=== PATIENT | female | born 1950 | race Caucasian/White ===

== ENCOUNTER → 2016-12-15 | Outpatient (CLI) | payer BC ==
--- NOTE | 2016-12-15 09:52 | MM ---
Reason for exam: history of breast cancer, mastectomy. Last mammogram was performed 1 year and 1 month ago. History: Patient is postmenopausal and has history of breast cancer at age 52. Excisional biopsy of the right breast, July 14, 2005. Mastectomy of the right breast, July 2003. Taking tamoxifen for 2 years 6 months beginning at age 53. Physical Findings: Nurse did not find any significant physical abnormalities on exam. MG Diagnostic Mammo LT w CAD CC and MLO view(s) were taken of the left breast. Prior study comparison: November 15, 2015, left breast MG 3d diag mammo w/cad LT. February 11, 2012, mammogram, performed at [facility]. The breast tissue is heterogeneously dense. This may lower the sensitivity of mammography. Finding: There are typically benign round calcifications in the left breast. There is no discrete abnormality. These results were verbally communicated with the patient and result sheet given to the patient on 12/15/16. ASSESSMENT: Benign, BI-RAD 2 RECOMMENDATION: Follow-up diagnostic mammogram of the left breast in 1 year.
--- NOTE | 2016-12-15 10:46 | CT ---
EXAMINATION TYPE: CT ChestAbdPelvis w con DATE OF EXAM: 12/15/2016 9:29 AM COMPARISON: 06/17/2016 and 10/31/2015 HISTORY: 66-year-old female follow-up to breast CA TECHNIQUE: Contiguous axial scanning of the chest, abdomen, and pelvis performed with IV Contrast, pa tient injected with 100 mL of Omnipaque 300. Delayed images through the kidneys were obtained. Steven l/sagittal reconstructions performed. CT DLP: 774.9 mGycm Automated exposure control for dose reduction was used. FINDINGS: CHEST: The heart is normal size without pericardial effusion. Moderate atherosclerotic arch calcifications are present with conventional branching anatomy. No thoracic lymphadenopathy by CT size criteria. Postsurgical changes of right-sided mastectomy. Evaluation of the lungs shows mild diffuse bronchial wall thickening and mild centrilobular emphysema strandy areas of atelectasis in the lower lungs. No consolidation or pleural effusion. ABDOMEN: The previously seen low density along the anterior falciform ligament is less pronounced as compared to prior exam. No biliary ductal dilatation. Portal vein appears patent. Cholecystectomy clips. Stable low-density nodular thickening of the left greater than right adrenal glands measuring up to 2 .6 cm on the left is unchanged. Redemonstrated heterogeneously enhancing solid mass posterior mid right kidney. This measures 2.5 cm versus 2.4 cm on 06/17/2016. This is also remeasured at approximately 2.4 cm on 10/31/2015. Left kidney mildly atrophic. Spleen with an inferior hilar splenule and pancreas show no gross abnormal body. Moderate to severe atherosclerotic changes within the infrarenal abdominal aorta which is mildly ecta tic at 2.5 cm. No mesenteric or retroperitoneal lymphadenopathy. No dilated small bowel, free fluid, or free air. There is a right mid to lower abdominal hernia, possible spigelian hernia with small bowel loops exte nding between the layers of the anterior abdominal wall musculature. No inflammatory change or obstru ctive changes. Some surgical clips are present along the lower anterior abdominal wall. PELVIS: Bladder is nondistended. Circumferential bladder wall thickening may relate to incomplete distention. Uterus is present. Suggestion of underlying fibroids measuring up to 2.3 cm. Ovaries not well seen. No abnormal fluid collection in the pelvis or pelvic lymphadenopathy. There is mild circumferential w all thickening of the mid to distal sigmoid probably due to nondistention. Bones: Mild degenerative changes at the hips. Additional degenerative changes lower lumbar spine. Severe Yunior morl's node of L1 vertebral body is unchanged. Old healed left-sided rib fracture deformity. No osseo us destructive process. IMPRESSION: 1. STATUS POST RIGHT-SIDED MASTECTOMY. 2. THE PREVIOUSLY SEEN HYPODENSITY ALONG THE ANTERIOR FALCIFORM LIGAMENT WITHIN THE LIVER IS LESS PRO NOUNCED FROM PRIOR EXAM. UNDERLYING FOCAL FAT IS SUSPECTED. 3. STABLE LOW-DENSITY NODULAR THICKENING OF THE LEFT GREATER THAN RIGHT ADRENAL GLANDS, POSSIBLE ADRE NAL HYPERPLASIA. 4. THE SOLID RIGHT RENAL MASS MEASURES 2.5 CM VERSUS 2.4 CM ON 10/31/2015. RCC NOT EXCLUDED AND CONTINU ED FOLLOW-UP IS RECOMMENDED. 5. SOME SMALL BOWEL LOOPS HERNIATING BETWEEN MUSCULAR PLANES OF THE LOWER RIGHT ANTERIOR ABDOMINAL WA LL, POSSIBLE SPIGELIAN HERNIA. NO INFLAMMATORY OR OBSTRUCTIVE CHANGES. THIS IS STABLE FROM 10/31/2015. 6. MILD CIRCUMFERENTIAL BLADDER WALL THICKENING COULD RELATE TO UNDER DISTENTION OR CYSTITIS.
--- NOTE | 2016-12-15 14:08 | NM ---
EXAMINATION TYPE: NM bone scan whole body DATE OF EXAM: 12/15/2016 1:54 PM COMPARISON: 06/17/[address] same day HISTORY: 66-year-old female with a history of breast cancer in 2003 and recurrent in 2012. TECHNIQUE: Delayed whole-body scanning was performed following the injection of 27.5 mCi Tc 99m MDP. Anterior and posterior images are acquired 3 hours post injection. FINDINGS: Scattered degenerative tracer activity at both shoulders, sternoclavicular joints, left knee, base of the thumbs, ankles, and mid to hind feet. There is focal increased tracer activity involving the right sixth rib end. He previously seen activi ty at the left fifth and sixth anterior rib ends has resolved. Photopenic defect compatible with knee replacement on the right. IMPRESSION: 1. Posttraumatic activity involving the right sixth anterior rib end. Retrospective review of CT of t he same day shows a subacute healing fracture here. 2. Previous left fifth and sixth anterior rib end activity has resolved. 3. Additional degenerative tracer activity as above.
== END | disposition home or self-care (01) ==
LOC: RADMAMWWP 08:02
PROVIDERS: ATTEND Internal Medicine Hematology & Oncology
DX: Z03.89 Encounter for observation for other suspected diseases and conditions ruled out (principal); C50.919 Malignant neoplasm of unspecified site of unspecified female breast; Z90.11 Acquired absence of right breast and nipple; R93.3 Abnormal findings on diagnostic imaging of other parts of digestive tract; R91.8 Other nonspecific abnormal finding of lung field; N28.89 Other specified disorders of kidney and ureter; K45.8 Other specified abdominal hernia without obstruction or gangrene; R93.49 Abnormal radiologic findings on diagnostic imaging of other urinary organs; R93.7 Abnormal findings on diagnostic imaging of other parts of musculoskeletal system
CPT/HCPCS: 82565; 84520; 71260; 74177; 36415; 78306; G0206; A9503; Q9967

== ENCOUNTER → 2017-12-22 | Outpatient (CLI) | payer MEDICARE, BC ==
--- NOTE | 2017-12-22 14:25 | NM ---
EXAMINATION TYPE: NM bone scan whole body DATE OF EXAM: 12/22/2017 COMPARISON: Prior nuclear medicine bone scan December 15, 2016. Same day CT chest abdomen and pelvis adela dy. HISTORY: Breast cancer Delayed whole-body scanning was performed following the injection of 23.5 mCi Tc 99m MDP. Images acq uired 3 hours post injection. Whole body images are obtained in anterior posterior projection as well as spot images of the thorax and abdomen are obtained in several projections. FINDINGS: No suspicious radiotracer uptake is seen to suggest metastatic disease to the bone on current study. Lucency from prosthesis at level of right knee is redemonstrated. Increased uptake surrounding left k nee most prominent medial tibiofemoral compartment is consistent with product of osteoarthritis. Area s of abnormal uptake prior study involving anterior ribs on prior study do not show suspicious uptake on current study consistent with healed fractures. IMPRESSION: No scintigraphic evidence for metastatic disease to the bone.
--- NOTE | 2017-12-22 14:58 | CT ---
EXAMINATION TYPE: CT ChestAbdPelvis w con DATE OF EXAM: 12/22/2017 COMPARISON: 12/15/2016 HISTORY: 67-year-old female follow-up Breast CA. Last chemotherapy April 2014. TECHNIQUE: Contiguous axial scanning of the chest, abdomen, and pelvis performed with IV Contrast, pa tient injected with 80 mL of Isovue 300. Delayed images through the kidneys were obtained. Coronal/sa gittal reconstructions performed. CT DLP: 677.2 mGycm Automated exposure control for dose reduction was used. FINDINGS: Chest: Heart is normal size without pericardial effusion. Aorta normal caliber with mild atherosclerotic arch calcifications and conventional arch vessel branc jennifer anatomy. Nonenlarged mediastinal lymph nodes measure up to 5 mm in the AP window. No thoracic lymphadenopathy by CT size criteria. Postsurgical changes on the right breast. Small right-sided low axillary lymph node is unchanged. Evaluation the lung shows mild diffuse interstitial prominence likely chronic senescent change. There is underlying mild emphysema. Strandy atelectasis or scarring at the inferior lingula. ABDOMEN: Small amount of focal fat along the anterior falciform ligament is unchanged. No new focal liver lesi on seen. Portal venous system is patent. Cholecystectomy clips. Diffuse low density nodular thickening in the right adrenal glands is unchanged measuring up to 2.6 c m on the left suggesting possible adrenal hyperplasia. Stable solid heterogeneous enhancing 2.5 cm posterior right renal mass. Slightly atrophic left kidney also redemonstrated. Spleen and pancreas appear within normal limits. No retroperitoneal or mesenteric lymphadenopathy. Moderate to severe atherosclerotic plaque focally within the infrarenal abdominal aorta narrowing the patent lumen to 8 mm is unchanged. Ectasia of the infrarenal segment is stable to minimally increase d at 2.6 cm versus 2.5 cm, previously. No dilated small bowel, free fluid, or free air. Pelvis: There is a spiculated hernia redemonstrated containing opacified bowel loops. No obstructive changes. Suggestion of some prior mesh repair along the lower abdomen and anterior pelvis. Mild circumferenti al wall thickening of the sigmoid colon may relate to nondistention. Bladder is urine distended. Stab le 2.1 cm anterior right uterine fibroid. No abnormal fluid collection in the pelvis or pelvic lympha denopathy seen. Bones: Mild degenerative changes at the hips. Degenerative changes lower lumbar spine. No osseous destructiv e process. Mild superior endplate compression deformity of L1 is unchanged. IMPRESSION: 1. STATUS POST RIGHT MASTECTOMY. NO EVIDENCE FOR RECURRENT OR METASTATIC DISEASE. 2. STABLE 2.5 CM SOLID RIGHT RENAL MASS. CONTINUED STABILITY SUGGESTS A BENIGN NEOPLASM. 3. STABLE RIGHT-SIDED BOWEL LOOP CONTAINING SPIGELIAN HERNIA. NO EVIDENCE FOR OBSTRUCTION. 4. MILD CIRCUMFERENTIAL WALL THICKENING OF THE SIGMOID COLON COULD RELATE TO NONDISTENTION OR COLITIS . CLINICALLY CORRELATE.
== END | disposition home or self-care (01) ==
LOC: RADNMMAIN 10:17
PROVIDERS: ATTEND Internal Medicine Hematology & Oncology
DX: C50.919 Malignant neoplasm of unspecified site of unspecified female breast (principal); N28.89 Other specified disorders of kidney and ureter; K43.9 Ventral hernia without obstruction or gangrene; K63.89 Other specified diseases of intestine; Z90.11 Acquired absence of right breast and nipple
CPT/HCPCS: 82565; 84520; 71260; 74177; 36415; 78306; A9503; Q9967

== ENCOUNTER 2018-08-29 21:58 | Inpatient (IN) | payer MEDICARE ==
[2018-08-29] MEDS ORDERED: SODIUM CHLORIDE 0.9% 1,000 ML IV STA (22:33)
[2018-08-29] MEDS ORDERED: IPRATROPIUM-ALBUTEROL 3 ML NEB INHALATION STA (22:35)
--- NOTE | 2018-08-29 22:53 | ED ---
Syncope HPI <Rolanda Ramsey - Last Filed: 08/30/18 00:43> - General Source: patient Mode of arrival: wheelchair Limitations: no limitations <Jacek Alcaraz - Last Filed: 08/30/18 01:00> - General Chief Complaint: Syncope Stated Complaint: Weakness Time Seen by Provider: 08/29/18 22:19 - History of Present Illness Initial Comments: Patient is a 68-year-old female presenting for syncope. Patient states that since Thursday, she has been having "bronchitis" and was diagnosed with a steroid, antibiotic and inhaler. She admits to some shortness of breath but no chest pain and does not use any nausea home. She has a [id number] smoking history but is never been diagnosed with COPD. She states that since that time , she is been feeling very weak and lightheaded with standing. Just before arrival, she went to go sit down after walking her dog in the kitchen and as she was sitting down, she passed out. She does not know how long she was out for but states that she does not have any head pain, neck pain, back pain from the fall. She admits to nausea but no abdominal pain or vomiting/diarrhea. She thinks she may also have a urinary tract infection as she has increased urge to urinate but when she tries ago, nothing will come out. (Jacek Alcaraz ) - Related Data Allergies Allergy/AdvReac Type Severity Reaction Status Date / Time adhesive tape Allergy Rash/Hives Verified 08/29/18 22:17 Review of Systems ROS Other: All systems not noted in ROS Statement are negative. <Rolanda Ramsey - Last Filed: 08/30/18 00:43> ROS Other: All systems not noted in ROS Statement are negative. <Jacek Alcaraz - Last Filed: 08/30/18 01:00> ROS Statement: Those systems with pertinent positive or pertinent negative responses have been documented in the HPI. Constitutional: Negative for chills, and fever. Positive for fatigue HENT: Negative for congestion. Respiratory: Negative for chest tightness, positive for shortness of breath and wheezing. Positive for cough Cardiovascular: Negative for chest pain and palpitations. Positive for syncope Gastrointestinal: Negative for abdominal pain. Negative for abdominal distention , diarrhea, na and vomiting. Positive for nausea Genitourinary: Negative for dysuria. Positive for urinary urgency Musculoskeletal: Negative for back pain, neck pain and neck stiffness. Skin: Negative for color change. Neurological: Negative for dizziness, speech difficulty, weakness and positive for light-headedness. Psychiatric/Behavioral: Negative for agitation and confusion. Negative for anxiety (Jacek Alcaraz) Past Medical History Past Medical History: Cancer, Hyperlipidemia, Hypertension Additional Past Medical History / Comment(s): right breast History of Any Multi-Drug Resistant Organisms: None Reported Past Surgical History: Breast Surgery, Cholecystectomy, Joint Replacement Additional Past Surgical History / Comment(s): ectopic , knee, neck for tumor removal Past Psychological History: Anxiety Smoking Status: Current every day smoker Past Alcohol Use History: None Reported Past Drug Use History: None Reported <Jacek Alcaraz - Last Filed: 08/30/18 01:00> General Exam <Rolanda Ramsey - Last Filed: 08/30/18 00:43> Limitations: no limitations <Jacek Alcaraz - Last Filed: 08/30/18 01:00> - General Exam Comments Initial Comments: Constitutional: Pt is oriented to person, place, and time. Pt appears well- developed and well-nourished. No distress. HENT: Head: Normocephalic and atraumatic. Eyes: EOM are normal. Neck: Normal range of motion. Neck supple. Cardiovascular: Normal rate, regular rhythm, S1 normal, S2 normal and normal heart sounds. Exam reveals no gallop and no friction rub. No murmur heard. Pulmonary/Chest: Effort normal and breath sounds normal. No tachypnea and no bradypnea. No respiratory distress. No rales noted. Positive for diffuse wheezes Abdominal: Soft. Bowel sounds are normal. Pt exhibits no shifting dullness, no distension, no pulsatile liver, no fluid wave, no abdominal bruit and no ascites. There is no tenderness. There is no rigidity, no rebound, no guarding, no tenderness at McBurney's point and negative Smiley's sign. Musculoskeletal: Normal range of motion. Neurological: Pt is alert and oriented to person, place, and time. No cranial nerve deficit. Skin: Skin is warm and dry. No rash noted. Pt is not diaphoretic. No erythema. No pallor. Psychiatric: Pt has a normal mood and affect. Pt behavior is normal. Thought content normal. (Jacek Alcaraz) Vital Signs 08/29/18 08/29/18 08/30/18 22:10 23:28 00:23 Temperature 97.7 F Pulse Rate 71 64 56 L Respiratory 18 19 16 Rate Blood Pressure 80/42 120/75 O2 Sat by Pulse 98 99 Oximetry 08/30/18 08/30/18 00:29 00:31 Temperature Pulse Rate 60 62 Respiratory 20 Rate Blood Pressure 123/71 O2 Sat by Pulse 96 Oximetry EKG Findings - EKG Comments: EKG Findings:: EKG shows normal sinus rhythm of a rate of [address] interval 180, QRS 76, QTC 486. <Jacek Alcaraz - Last Filed: 08/30/18 01:00> Medical Decision Making - Lab Data Result diagrams: 08/29/18 23:09 08/29/18 23:09 <Rolanda Ramsey - Last Filed: 08/30/18 00:43> - Lab Data Result diagrams: 08/29/18 23:09 08/29/18 23:09 <Jacek Alcaraz - Last Filed: 08/30/18 01:00> - Medical Decision Making Patient care was discussed with Dr. Lorenzo, Nephrology library circulation technician. He recommended no aggressive sodium replacement, continue gentle hydration, repeat labs in 3-4 hours. Agrees with workup and treatment as ordered. (Rolanda Ramsey) Laboratory studies showed that there is no significant leukocytosis and chest x- ray showed no evidence of infiltrate. From a cardiac standpoint, EKG had no significant ST depressions or elevations and troponin was also negative. However, there was profound electrolyte derangements with sodium measuring 119. He is unclear if this is the cause of the patient's syncope but this may be related to the patient's chronic alcohol use. Nonetheless, alcohol was noted to be negative here. CT of the head and neck were also performed and negative for acute pathology and there is no evidence of transaminitis as well.Explained all labs and diagnostic test results and that we will admit patient to hospital. Pt is agreeable to plan and case has been discussed with Dr. Hernandez and Dr. Canela and they agree to accept the pt. (Jacek Alcaraz) - Lab Data Lab Results 08/29/18 08/29/18 08/29/18 Range/Units 23:09 23:09 23:09 WBC 8.7 (3.8-10.6) k/uL RBC 3.87 (3.80-5.40) m/uL Hgb 14.2 (11.4-16.0) gm/dL Hct 42.1 (34.0-46.0) % MCV 108.8 H (80.0-100.0) fL MCH 36.7 H (25.0-35.0) pg MCHC 33.7 (31.0-37.0) g/dL RDW 14.7 (11.5-15.5) % Plt Count 101 L (150-450) k/uL Neutrophils % (Manual) 94 % Lymphocytes % (Manual) 5 % Monocytes % (Manual) 1 % Neutrophils # (Manual) 8.18 H (1.3-7.7) k/uL Lymphocytes # (Manual) 0.44 L (1.0-4.8) k/uL Monocytes # (Manual) 0.09 (0-1.0) k/uL Nucleated RBCs 0 (0-0) /100 WBC Manual Slide Review Performed Macrocytosis Marked PT 10.5 (9.0-12.0) sec INR 1.0 (<1.2) APTT 25.9 (22.0-30.0) sec Sodium 119 L* (137-145) mmol/L Potassium 3.4 L (3.5-5.1) mmol/L Chloride 81 L (98-107) mmol/L Carbon Dioxide 26 (22-30) mmol/L Anion Gap 12 mmol/L BUN 26 H (7-17) mg/dL Creatinine 1.51 H (0.52-1.04) mg/dL Est GFR (CKD-EPI)AfAm 41 (>60 ml/min/1.73 sqM) Est GFR (CKD-EPI)NonAf 36 (>60 ml/min/1.73 sqM) Glucose 109 H (74-99) mg/dL Calcium 8.7 (8.4-10.2) mg/dL Magnesium 1.1 L (1.6-2.3) mg/dL Total Bilirubin 1.3 (0.2-1.3) mg/dL AST 20 (14-36) U/L ALT 20 (9-52) U/L Alkaline Phosphatase 73 (38-126) U/L Troponin I (0.000-0.034) ng/mL Total Protein 5.6 L (6.3-8.2) g/dL Albumin 3.1 L (3.5-5.0) g/dL Serum Alcohol <10 mg/dL 08/29/18 Range/Units 23:09 WBC (3.8-10.6) k/uL RBC (3.80-5.40) m/uL Hgb (11.4-16.0) gm/dL Hct (34.0-46.0) % MCV (80.0-100.0) fL MCH (25.0-35.0) pg MCHC (31.0-37.0) g/dL RDW (11.5-15.5) % Plt Count (150-450) k/uL Neutrophils % (Manual) % Lymphocytes % (Manual) % Monocytes % (Manual) % Neutrophils # (Manual) (1.3-7.7) k/uL Lymphocytes # (Manual) (1.0-4.8) k/uL Monocytes # (Manual) (0-1.0) k/uL Nucleated RBCs (0-0) /100 WBC Manual Slide Review Macrocytosis PT (9.0-12.0) sec INR (<1.2) APTT (22.0-30.0) sec Sodium (137-145) mmol/L Potassium (3.5-5.1) mmol/L Chloride (98-107) mmol/L Carbon Dioxide (22-30) mmol/L Anion Gap mmol/L BUN (7-17) mg/dL Creatinine (0.52-1.04) mg/dL Est GFR (CKD-EPI)AfAm (>60 ml/min/1.73 sqM) Est GFR (CKD-EPI)NonAf (>60 ml/min/1.73 sqM) Glucose (74-99) mg/dL Calcium (8.4-10.2) mg/dL Magnesium (1.6-2.3) mg/dL Total Bilirubin (0.2-1.3) mg/dL AST (14-36) U/L ALT (9-52) U/L Alkaline Phosphatase (38-126) U/L Troponin I <0.012 (0.000-0.034) ng/mL Total Protein (6.3-8.2) g/dL Albumin (3.5-5.0) g/dL Serum Alcohol mg/dL Disposition <Rolanda Ramsey - Last Filed: 08/30/18 00:43> Is patient prescribed a controlled substance at d/c from ED?: No Decision to Admit Reason: Admit from EC Decision Date: 08/30/18 Decision Time: 01:00 <Jacek Alcaraz - Last Filed: 08/30/18 01:00> Clinical Impression: Hyponatremia, Syncope Disposition: ADMITTED IP TO THIS HOSP Condition: Fair
[2018-08-29 23:36] LABS: Macrocytosis Marked; RBC 3.87 m/uL (3.80-5.40)
[2018-08-29 23:40] LABS: ALT 20 U/L (9-52); AST 20 U/L (14-36); Albumin 3.1 g/dL (3.5-5.0); Alcohol <10 mg/dL; Alkaline Phosphatase 73 U/L (38-126); Anion Gap 12 mmol/L; Blood Urea Nitrogen 26 mg/dL (7-17); Calcium 8.7 mg/dL (8.4-10.2); Carbon Dioxide 26 mmol/L (22-30); Chloride 81 mmol/L (98-107); Glucose 109 mg/dL (74-99); Magnesium 1.1 mg/dL (1.6-2.3); Partial Thromboplastin Time 25.9 sec (22.0-30.0); Potassium 3.4 mmol/L (3.5-5.1); Prothrombin Time 10.5 sec (9.0-12.0); Total Bilirubin 1.3 mg/dL (0.2-1.3); Total Protein 5.6 g/dL (6.3-8.2)
[2018-08-29 23:50] LABS: HCT 42.1 % (34.0-46.0); HGB 14.2 gm/dL (11.4-16.0); MCH 36.7 pg (25.0-35.0); MCHC 33.7 g/dL (31.0-37.0); MCV 108.8 fL (80.0-100.0); Platelet Count 101 k/uL (150-450); RDW 14.7 % (11.5-15.5); WBC 8.7 k/uL (3.8-10.6)
--- NOTE | 2018-08-30 | XR ---
EXAMINATION TYPE: XR chest 2V DATE OF EXAM: 08/29/2018 COMPARISON: NONE HISTORY: Syncope TECHNIQUE: Frontal and lateral views of the chest are obtained. FINDINGS: There is some linear density at the left lung base. Heart and mediastinum are normal. Ther e is osteopenia. Bony thorax is intact. There is 1 cm low-density area in the right midlung. IMPRESSION: Possible right pulmonary nodule. Minimal atelectasis left lung base. Normal heart.
[2018-08-30 00:09] LABS: Sodium 119 mmol/L (137-145)
[2018-08-30 00:12] LABS: Lymphocytes # (M) 0.44 k/uL (1.0-4.8); Monocytes # (M) 0.09 k/uL (0-1.0); Neutrophils # (M) 8.18 k/uL (1.3-7.7); Neutrophils % (M) 94 %; Nucleated Red Blood Cells 0 /100 WBC (0-0); Total Cells Counted 100
--- NOTE | 2018-08-30 00:14 | CT ---
EXAMINATION TYPE: CT brain laura newman con DATE OF EXAM: 08/29/2018 COMPARISON: CT cervical spine 05/04/2012 HISTORY: weakness, syncope CT DLP: 1205.30 mGycm Automated exposure control for dose reduction was used. TECHNIQUE: CT scan of the head and cervical spine are performed without contrast. FINDINGS: There is cerebral cortical atrophy. There is no mass effect nor midline shift. There is n o sign of intracranial hemorrhage. The calvarium is intact. Skull base appears intact. There is degenerative disc space narrowing at C5-6 and C6-7 with spurring of the endplates. There is laminectomy defect in the mid cervical spine. I see no compression fracture. There is no cervical par aspinal mass. There is some facet arthropathy in the mid cervical spine. IMPRESSION: Cerebral atrophy. No acute intracranial abnormality. Spondylotic changes. Previous surgery. There is clearing of the large posterior cervical fluid collec tion compared to old CT scan. No fracture.
[2018-08-30] MEDS ORDERED: NALOXONE 0.4 MG/ML 1 ML VIAL IV PRN (00:32)
[2018-08-30] MEDS ORDERED: IPRATROPIUM-ALBUTEROL 3 ML NEB INHALATION PRN (00:32)
[2018-08-30] MEDS ORDERED: ACETAMINOPHEN TAB 325 MG TAB PO PRN (00:32)
[2018-08-30] MEDS: SODIUM CHLORIDE 0.9% 1,000 ML IV SCH ×3 (01:09→21:37)
[2018-08-30 02:17] LABS: Appearance,Urine Clear (Clear); Bilirubin,Urine Negative (Negative); Blood,Urine Negative (Negative); Color,Urine Yellow; Glucose,Urine (UA) Negative (Negative); Ketones,Urine Negative (Negative); Leukocyte Esterase,Urine Negative (Negative); Nitrite,Urine Negative (Negative); PH, Urine 6.5 (5.0-8.0); Protein,Urine Negative (Negative); Specific Gravity,Urine 1.011 (1.001-1.035); Urobilinogen,Urine <2.0 mg/dL (<2.0)
[2018-08-30 03:09] LABS: Creatinine,Urine Random 87.5 mg/dL
[2018-08-30 03:11] LABS: Glucose,Whole Blood 96 mg/dL (75-99)
[2018-08-30 04:49] LABS: Basophils % (A) 0 %; Eosinophils % (A) 0 %; HCT 39.4 % (34.0-46.0); HGB 13.1 gm/dL (11.4-16.0); Lymphocytes # (A) 0.6 k/uL (1.0-4.8); Lymphocytes % (A) 7 %; MCH 37.2 pg (25.0-35.0); MCHC 33.4 g/dL (31.0-37.0); MCV 111.6 fL (80.0-100.0); Macrocytosis Marked; Mean Platelet Volume 8.6; Monocytes # (A) 0.3 k/uL (0-1.0); Monocytes % (A) 4 %; Neutrophils # (A) 7.9 k/uL (1.3-7.7); Neutrophils % (A) 87 %; RBC 3.53 m/uL (3.80-5.40); RDW 14.8 % (11.5-15.5); WBC 9.1 k/uL (3.8-10.6)
[2018-08-30 05:14] LABS: Platelet Count 86 k/uL (150-450)
[2018-08-30 06:11] LABS: Albumin 2.8 g/dL (3.5-5.0); Magnesium 1.1 mg/dL (1.6-2.3); Phosphorus 3.6 mg/dL (2.5-4.5); Potassium 3.2 mmol/L (3.5-5.1); Total Bilirubin 1.2 mg/dL (0.2-1.3); Total Protein 5.2 g/dL (6.3-8.2)
[2018-08-30] MEDS ORDERED: Potassium Replacement Protocol 1 EACH MISC MISCELLANE PRN (06:12)
[2018-08-30] MEDS ORDERED: Magnesium Replacement Protocol 1 EACH MISC MISCELLANE PRN (06:12)
[2018-08-30 06:21] VITALS: BMI 25.4
[2018-08-30] MEDS: POTASSIUM CHLORIDE ER 20 MEQ TAB.ER PO SCH ×2 (06:49→08:45)
[2018-08-30] MEDS: MAGNESIUM SULFATE-D5W PMX 1 GM in DEXTROSE/WATER 1 100ML.BAG IVPB SCH ×3 (06:49→09:53)
--- NOTE | 2018-08-30 08:53 | XR ---
EXAMINATION TYPE: XR chest 1V portable DATE OF EXAM: 08/30/2018 COMPARISON: 08/29/2018 HISTORY: Syncope TECHNIQUE: Single frontal view of the chest is obtained. FINDINGS: Trace left basilar platelike atelectasis is identified. Mild pulmonary hyperinflation sugg ests underlying COPD. The previously seen right midlung opacity appears to have resolved in the inter im and may have related to atelectasis. Cardia mediastinal silhouette is mildly enlarged. Right breas t surgical clips are noted. IMPRESSION: Left basilar subsegmental atelectasis, otherwise no acute cardiopulmonary process.
--- NOTE | 2018-08-30 11:34 | PN ---
PROGRESS NOTE PULMONARY/CRITICAL CARE CONSULTATION: DATE OF SERVICE: August 30, 2018 HISTORY OF PRESENT ILLNESS: This is a 68-year-old female who presented to the emergency room with complaints of weakness and loss of consciousness. She apparently was going to let her dog out of the house and she apparently passed out. She was apparently on the floor when she woke up and she is not sure exactly how long she was out. Anyway, she was brought in here to be evaluated for that. Here, she was found to be orthostatic. Her sodium was low. She states that she had not been feeling well. About a week before coming into the hospital, she saw her primary doctor, Dr. Sandeep Rivers in [place] for an episode of acute bronchitis. She was given some prednisone and some antibiotics. Anyway, she has not been feeling well since that time. Getting progressively weaker. This likely led her to have the episode that I described above. Anyway, she is feeling much better now. She does have a history of hyperlipidemia and hypertension. Her other significant history is that of right breast cancer. She had a previous mastectomy, and the cancer returned at which time she underwent chemo and radiation. She had radiation x2. Again, feeling much better now. She is on O2 at 2 L. She is getting an IV of saline at 100 mL an hour. ALLERGIES: INCLUDE ADHESIVE TAPE. PAST MEDICAL HISTORY: Includes breast cancer of the right breast, hypertension, hyperlipidemia. SURGICAL HISTORY: Includes among other things a right mastectomy. SOCIAL HISTORY: Positive for ongoing tobacco use. No alcohol use or illicit drug use. FAMILY HISTORY: Noncontributory. Additional surgical history includes cholecystectomy, joint replacement and a tumor removal. REVIEW OF SYSTEMS: CONSTITUTIONAL: Weakness. NEUROLOGIC: Syncope. HEENT negative. CARDIOVASCULAR negative. PULMONARY: Cough, chest congestion, shortness of breath, phlegm production. GI/ negative. RHEUMATOLOGIC: Negative. HEMATOLOGIC negative. ENDOCRINOLOGIC/DERMATOLOGIC: Negative. PHYSICAL EXAMINATION: VITAL SIGNS: Current vital signs are reviewed. Her temperature is 97.8. Heart rate 60. Respiratory rate is 12, blood pressure 119/90 with mean 99 and the room air saturation 94% and at 2 L saturation 97%. Appears in no acute distress. There is no respiratory distress. There is no audible wheezing. No use of accessory muscles or nasal flaring. HEENT examination is grossly unremarkable. Mucous membranes are moist. NECK: Supple. Full range of motion. No adenopathy or thyromegaly. Neck veins are flat. Cardiovascular examination reveals regular rhythm rate. S1, S2 normal. No S3, S4, or murmur. LUNGS: A few scattered rhonchi. There is some expiratory wheezes. Breath sounds are diminished. There is prolongation. ABDOMEN: Soft. Bowel sounds are heard. Extremities are intact. No cyanosis, clubbing, or edema. Skin without rash. Neurologic examination is brief but nonfocal. LABS: Reviewed. White count 9.1, hemoglobin 13.1, hematocrit 39.4, and platelet count is 86,000. Sodium is up from 119 to 122, potassium 3.2, chloride 88, CO2 24, anion gap is 10, BUN and creatinine were 24 and 1.26. The rest of the labs including the urine is negative. Alcohol level less than 10. X-RAY: Chest x-ray on admission showed evidence of possible right pulmonary nodule. There was some minimal atelectasis at the left lung base. A followup chest x-ray today reveals some basilar atelectasis on the left. Microbiologic studies are negative. Medications are reviewed. She is only on Tylenol, DuoNeb, magnesium replacement, Narcan, potassium protocol and an IV as mentioned. ASSESSMENT: 1. Weakness and syncope, likely related to underlying dehydration. 2. Hyponatremia, likely hypovolemic hyponatremia. 3. History of hypertension. 4. History of hyperlipidemia. 5. History of right breast cancer, status post right mastectomy and subsequent chemo radiation. 6. Thrombocytopenia. 7. Hypokalemia. PLAN: Continue with fluid resuscitation. The patient could be transferred out to the general medical floor without telemetry. I will add some Symbicort to her regimen. Additional recommendations and suggestions are forthcoming. We will likely add the prednisone as well to her regimen. We will also add an oral antibiotic for her bronchitis. Continue to watch the sodium and continue to watch other electrolytes to make sure everything is repleted. We will continue to follow. Prognosis is guarded. Post discharge from the hospital, she should see one of us in the office for further evaluation and treatment of her underlying COPD. MMODL / IJN: [id number] /
--- NOTE | 2018-08-30 11:55 | P.HPIM ---
History of Present Illness 68-year-old present female came in with complaints of syncope was recently treated for bronchitis. Patient is found to be severely hypotensive. Patient was not started on any of her hypertensives recently. Patient has been on clonidine and atenolol hydrochlorothiazide for a while. Patient can use to smoke. Does have 40 pack history of smoking does have history of COPD is complaining of cough with the lowest sputum production which is much better now. Patient is also found to be severely hyponatremic with serum sodium of 119 because of which patient was admitted to ICU was given a bolus of IV fluids after which her Serum sodium went up to 122 nephrology was consulted the already evaluated the patient patient is being continued on 100 mL of normal saline urine random sodium, TSH, serum cortisol levels are being obtained. Patient to hyponatremia is probably hypovolemic hyponatremia along with the hydrochlorothiazide contributing to her hyponatremia. Patient's heart rate is within normal limits because of which I'll hold off all her anti-hypertensives including atenolol and clonidine patient may need to be restarted back as soon as possible on atenolol to avoid reflex tachycardia. Patient also has acute renal failure with serum creatinine going up to 1.5 with my other multiple other left leg abnormal disease including hypomagnesemia and left lites are being corrected. Patient was started on Bactrim for bronchitis which will be switched to doxycycline because of hyponatremia and acute renal failure. Patient was comparing of generalized weakness and tiredness Review of Systems REVIEW OF SYSTEMS: CONSTITUTIONAL: No fever, HEENT: No recent visual problems or hearing problems. Denied any sore throat. CARDIOVASCULAR: No chest pain, orthopnea, PND, no palpitations, no syncope. PULMONARY: No shortness of breath, no hemoptysis. GASTROINTESTINAL: No diarrhea, no nausea, no vomiting, no abdominal pain. NEUROLOGICAL: No headaches, no weakness, no numbness. HEMATOLOGICAL: Denies any bleeding or petechiae. GENITOURINARY: Denies any burning micturition, frequency, or urgency. MUSCULOSKELETAL/RHEUMATOLOGICAL: Denies any joint pain, swelling, or any muscle pain. ENDOCRINE: Denies any polyuria or polydipsia. The rest of the 14-point review of systems is negative. Past Medical History Past Medical History: Cancer, Hyperlipidemia, Hypertension Additional Past Medical History / Comment(s): right breast History of Any Multi-Drug Resistant Organisms: None Reported Past Surgical History: Breast Surgery, Cholecystectomy, Joint Replacement Additional Past Surgical History / Comment(s): ectopic , knee, neck for tumor removal Past Psychological History: Anxiety Smoking Status: Current every day smoker Past Alcohol Use History: None Reported Past Drug Use History: None Reported Medications and Allergies Home Medications Medication Instructions Recorded Confirmed Type Albuterol Inhaler [Ventolin Hfa 1 - 2 puff INHALATION RT-Q6H PRN 08/30/18 History Inhaler] Aspirin EC [Ecotrin Low Dose] 81 mg PO DAILY 08/30/18 08/30/18 History Atenolol 100 mg PO DAILY 08/30/18 08/30/18 History Cholecalciferol [Vitamin D3] 1,000 unit PO DAILY 08/30/18 08/30/18 History Citalopram Hydrobromide [CeleXA] 20 mg PO DAILY 08/30/18 08/30/18 History Hydrochlorothiazide [Hydrodiuril] 25 mg PO DAILY 08/30/18 08/30/18 History Letrozole [Femara] 2.5 mg PO DAILY 08/30/18 08/30/18 History Loratadine [Claritin] 10 mg PO DAILY 08/30/18 08/30/18 History Naproxen 500 mg PO DAILY 08/30/18 08/30/18 History cloNIDine HCL [Catapres] 0.2 mg PO BID 08/30/18 08/30/18 History predniSONE See Taper PO DAILY 08/30/18 08/30/18 History Allergies Allergy/AdvReac Type Severity Reaction Status Date / Time adhesive tape Allergy Rash/Hives Verified 08/30/18 07:54 Physical Exam Vitals: Vital Signs Temp Pulse Pulse Pulse Resp BP BP 08/30/18 09:00 67 19 129/61 08/30/18 08:00 97 F L 70 82 66 17 128/99 08/30/18 07:00 60 12 119/90 08/30/18 06:00 67 42 H 99/84 08/30/18 05:00 63 19 160/88 08/30/18 04:00 97.8 F 71 82 66 16 152/82 08/30/18 03:09 26 H 08/30/18 02:00 97.0 F L 65 17 79/58 08/30/18 01:50 82 66 19 123/75 08/30/18 01:30 64 20 120/80 08/30/18 01:00 68 19 134/88 08/30/18 00:31 62 20 123/71 08/30/18 00:30 63 17 123/71 08/30/18 00:29 60 08/30/18 00:23 56 L 16 08/30/18 00:00 68 18 08/29/18 23:30 61 17 120/75 08/29/18 23:28 64 19 120/75 08/29/18 23:00 62 20 95/62 08/29/18 22:30 64 20 98/71 08/29/18 22:22 08/29/18 22:10 97.7 F 71 18 80/42 BP BP Pulse Ox 08/30/18 09:00 97 08/30/18 08:00 98 08/30/18 07:00 95 08/30/18 06:00 95 08/30/18 05:00 94 L 08/30/18 04:00 08/30/18 03:09 08/30/18 02:00 97 08/30/18 01:50 135/66 69/20 08/30/18 01:30 98 08/30/18 01:00 97 08/30/18 00:31 96 08/30/18 00:30 97 08/30/18 00:29 08/30/18 00:23 08/30/18 00:00 97 08/29/18 23:30 99 08/29/18 23:28 99 08/29/18 23:00 99 08/29/18 22:30 100 08/29/18 22:22 99 08/29/18 22:10 98 Intake and Output 08/29/18 08/30/18 08/30/18 22:59 06:59 14:59 Intake Total 600 100 Output Total 810 Balance -210 100 Intake: IV 600 100 Sodium Chloride 0.9% 1, 600 100 000 ml @ 100 mls/hr IV . Q10H [facility] Rx#:[id number] Output: Urine 810 Other: # Voids 2 Weight 58.967 kg 58.967 kg 58.967 kg PHYSICAL EXAMINATION: GENERAL: The patient is alert and oriented x3, not in any acute distress. Well developed, well nourished. HEENT: Pupils are round and equally reacting to light. EOMI. No scleral icterus. No conjunctival pallor. Normocephalic, atraumatic. No pharyngeal erythema. No thyromegaly. CARDIOVASCULAR: S1 and S2 present. No murmurs, rubs, or gallops. PULMONARY: Minimal expiratory wheezing and rhonchus breath sounds. ABDOMEN: Soft, nontender, nondistended, normoactive bowel sounds. No palpable organomegaly. MUSCULOSKELETAL: No joint swelling or deformity. EXTREMITIES: No cyanosis, clubbing, or pedal edema. NEUROLOGICAL: Gross neurological examination did not reveal any focal deficits. SKIN: No rashes. Results CBC & Chem 7: 08/30/18 04:13 08/30/18 05:38 Labs: Abnormal Lab Results - Last 24 Hours (Table) 08/29/18 08/29/18 08/29/18 Range/Units 23:09 23:09 23:09 RBC (3.80-5.40) m/uL MCV 108.8 H (80.0-100.0) fL MCH 36.7 H (25.0-35.0) pg Plt Count 101 L (150-450) k/uL Neutrophils # (1.3-7.7) k/uL Neutrophils # (Manual) 8.18 H (1.3-7.7) k/uL Lymphocytes # (1.0-4.8) k/uL Lymphocytes # (Manual) 0.44 L (1.0-4.8) k/uL Sodium 119 L* (137-145) mmol/L Potassium 3.4 L (3.5-5.1) mmol/L Chloride 81 L (98-107) mmol/L BUN 26 H (7-17) mg/dL Creatinine 1.51 H (0.52-1.04) mg/dL Glucose 109 H (74-99) mg/dL Osmolality 248 L* (280-301) mosm/kg Calcium (8.4-10.2) mg/dL Magnesium 1.1 L (1.6-2.3) mg/dL Total Protein 5.6 L (6.3-8.2) g/dL Albumin 3.1 L (3.5-5.0) g/dL 08/30/18 08/30/18 Range/Units 04:13 05:38 RBC 3.53 L (3.80-5.40) m/uL MCV 111.6 H (80.0-100.0) fL MCH 37.2 H (25.0-35.0) pg Plt Count 86 L (150-450) k/uL Neutrophils # 7.9 H (1.3-7.7) k/uL Neutrophils # (Manual) (1.3-7.7) k/uL Lymphocytes # 0.6 L (1.0-4.8) k/uL Lymphocytes # (Manual) (1.0-4.8) k/uL Sodium 122 L (137-145) mmol/L Potassium 3.2 L (3.5-5.1) mmol/L Chloride 88 L (98-107) mmol/L BUN 24 H (7-17) mg/dL Creatinine 1.26 H (0.52-1.04) mg/dL Glucose (74-99) mg/dL Osmolality (280-301) mosm/kg Calcium 8.0 L (8.4-10.2) mg/dL Magnesium 1.1 L (1.6-2.3) mg/dL Total Protein 5.2 L (6.3-8.2) g/dL Albumin 2.8 L (3.5-5.0) g/dL Assessment and Plan Plan: -Syncopal episode: Secondary to hypotension and hypovolemia patient will continue on IV fluids hold off on antidepressant medications at this time. -Hyponatremia: Hypovolemic hyponatremia along with HCl contributing to hyponatremia can he with IV fluids hold off on offending medications as mentioned above. -Bronchitis will discontinue Bactrim because of hyponatremia and acute renal failure patient will be started on doxycycline 1 patient may have mild acute exacerbation patient was started on systemic steroids continue with inhalational treatments nicotine cessation counseling was provided -Hypomagnesemia magnesium will be supplemented -Acute renal failure prerenal azotemia from hypovolemia and hypotension can you with IV fluids as mentioned above -Hypertension: Patient is currently hypotensive hold off on her antidepressant medications -Hyperlipidemia continue with her statin. -History of right breast cancer status post right mastectomy and chemoradiation subsequently -Hypokalemia secondary to hypomagnesemia both of which will be supplemented
[2018-08-30 12:12] LABS: Hemoglobin A1C 5.3 % (4.0-6.0)
--- NOTE | 2018-08-30 15:12 | CT ---
EXAMINATION TYPE: CT brain wo con DATE OF EXAM: 08/30/2018 COMPARISON: 08/29/2018 HISTORY: Fall today with subsequent head pain. CT DLP: 1040.4 mGycm Automated exposure control for dose reduction was used. TECHNIQUE: CT scan of the head is performed without contrast. COMPARISON: None FINDINGS: There is no acute intracranial hemorrhage or midline shift identified. There is diffuse v entricular and sulcal prominence consistent with diffuse age-related cerebral atrophy. There is low- attenuation in the periventricular white matter consistent with chronic small vessel ischemic change. The globes are intact. There is moderate mucosal thickening of the maxillary sinuses, sphenoid sinu s, and ethmoid sinuses. There is mild mucosal thickening of the frontal sinuses. Mastoid air cells ar e well aerated. Atherosclerosis is noted of the intracranial vasculature. No suspicious extra-axial f luid collection is seen. IMPRESSION: 1. No acute intracranial hemorrhage or midline shift. 2. Overall moderate pansinusitis. 3. There is diffuse age-related cerebral atrophy and chronic small vessel ischemic change.
[2018-08-30] MEDS: FAMOTIDINE 20 MG TAB PO SCH (15:56)
--- NOTE | 2018-08-30 18:58 | CONS ---
CONSULTATION REASON FOR CONSULT: Hyponatremia. HISTORY OF PRESENT ILLNESS: The patient is a 68-year-old female who was admitted to the hospital with complaints of weakness and not feeling well. The patient was found to be significantly hypotensive when she came in to the emergency room. Blood pressure was 80/42. The patient was has been given a liter of normal saline bolus. A serum sodium was low at 119. It has now come up to 122. The patient denies any prior history of hyponatremia. She did not have any diarrhea. She did have some nausea prior to admission. The patient also stated she had not been eating a lot, but had been drinking a large amount of water. There has not been any change in her medications recently. The patient is maintained on hydrochlorothiazide at home prior to admission. PAST MEDICAL HISTORY: Hypertension, osteoarthritis, hyperlipidemia, history of breast cancer status post surgery, cholecystectomy. PAST SURGICAL HISTORY: Cholecystectomy, knee arthroplasty, surgery for ectopic . SOCIAL HISTORY: Positive for smoking. No history of drug abuse or alcohol abuse. MEDICATIONS: Medications at home prior to admission included atenolol, vitamin D3, hydrochlorothiazide, Claritin, Naprosyn, clonidine, prednisone, . ALLERGIES: INCLUDE TAPE. REVIEW OF SYSTEMS: As per HPI. Other systems negative. PHYSICAL EXAMINATION: Patient is comfortable, awake, alert, oriented x3. She is not in any acute distress. Blood pressure this morning was 119/90, heart rate 82 per minute. She is afebrile. Examination of the heart S1, S2. Examination lungs bilateral breath sounds are heard. Abdomen is soft, nontender. Examination lower extremities shows no evidence of edema. [employer] exam is grossly intact. LAB: Revealed sodium 122, potassium 3.2, chloride 88, BUN 24, serum creatinine 1.26. UA is completely benign. Calcium was 8.7, hemoglobin 13.1 g/dL. ASSESSMENT: 1. Acute kidney injury, prerenal associated with hypotension hypoperfusion as well as use of NSAIDs, currently improved. 2. Hyponatremia, appears to be hypovolemic, currently improving with normal saline. Check a TSH and random cortisol level as well. I will repeat another serum sodium this afternoon. 3. Hypokalemia secondary to diuretics and decreased intake. We will continue to replace. 4. History of hypertension. 5. History of osteoarthritis. PLAN: Continue normal saline. Hold off on thiazide diuretics. Replace potassium. Repeat sodium this evening. Check a TSH and random cortisol level and the. Thank you for this consultation. We will continue to follow the patient with you during her hospitalization. ADRIANA / TEAN: [id number] /
[2018-08-30] MEDS ORDERED: FAMOTIDINE 20 MG TAB PO SCH (21:00)
[2018-08-30] MEDS ORDERED: SULFAMETHOX-TMP 800-160MG 1 EACH TAB PO SCH (21:00)
[2018-08-30] MEDS: SYMBICORT 160-4.5 MCG INHALER INHALATION SCH (21:33)
[2018-08-30] MEDS: DOXYCYCLINE 100 MG CAP PO SCH (22:39)
[2018-08-30] MEDS: LETROZOLE 2.5 MG TAB PO SCH (23:32)
--- NOTE | 2018-08-31 09:06 | XR ---
EXAMINATION TYPE: XR chest 1V portable DATE OF EXAM: 08/31/2018 COMPARISON: 08/30/2018 INDICATION: Short of breath TECHNIQUE: Single frontal view of the chest is obtained. FINDINGS: The heart size is normal. The pulmonary vasculature is normal. Some minimal atelectasis above left diaphragm may be present. This is improving from comparison. IMPRESSION: 1. Improving left basilar atelectasis.
[2018-08-31 09:15] LABS: Basophils % (A) 0 %; Eosinophils % (A) 0 %; HCT 36.1 % (34.0-46.0); HGB 12.4 gm/dL (11.4-16.0); Lymphocytes # (A) 0.6 k/uL (1.0-4.8); Lymphocytes % (A) 6 %; MCH 37.4 pg (25.0-35.0); MCHC 34.3 g/dL (31.0-37.0); MCV 109.1 fL (80.0-100.0); Macrocytosis Marked; Mean Platelet Volume 8.7; Monocytes # (A) 0.3 k/uL (0-1.0); Monocytes % (A) 4 %; Neutrophils # (A) 8.2 k/uL (1.3-7.7); Neutrophils % (A) 88 %; RBC 3.31 m/uL (3.80-5.40); RDW 14.1 % (11.5-15.5); WBC 9.3 k/uL (3.8-10.6)
[2018-08-31] MEDS: DOXYCYCLINE 100 MG CAP PO SCH ×2 (09:15→20:26)
[2018-08-31] MEDS: predniSONE 10 MG TAB PO SCH (09:15)
[2018-08-31] MEDS: SODIUM CHLORIDE 0.9% 1,000 ML IV SCH ×2 (09:16→19:42)
[2018-08-31] MEDS: CITALOPRAM HYDROBROMIDE 20 MG TAB PO SCH (09:16)
[2018-08-31] MEDS: FAMOTIDINE 20 MG TAB PO SCH (09:16)
[2018-08-31] MEDS: LETROZOLE 2.5 MG TAB PO SCH (09:16)
[2018-08-31] MEDS: ASPIRIN 81 MG PO SCH (09:16)
[2018-08-31 09:26] LABS: Albumin 2.7 g/dL (3.5-5.0); Calcium 8.4 mg/dL (8.4-10.2); Magnesium 1.8 mg/dL (1.6-2.3); Phosphorus 3.1 mg/dL (2.5-4.5); Potassium 3.7 mmol/L (3.5-5.1); Total Bilirubin 1.1 mg/dL (0.2-1.3)
[2018-08-31 09:30] LABS: Platelet Count 80 k/uL (150-450)
[2018-08-31] MEDS: SYMBICORT 160-4.5 MCG INHALER INHALATION SCH ×3 (09:47→19:15)
--- NOTE | 2018-08-31 15:33 | PN ---
PROGRESS NOTE The patient is seen for followup for hyponatremia. The sodium level has improved. Patient is maintained on normal saline. The patient also had acute kidney injury. Creatinine has improved from 1.5-1.17 now. Currently, patient denies any significant complaints. EXAMINATION: This morning blood pressure was 162/74, heart rate 74 per minute. She is afebrile. Examination of the heart S1, S2. Examination of the lungs, decreased breath sounds at bases. Abdomen is soft, nontender. Examination of lower extremities shows no evidence of edema. LAB: Sodium 125, potassium 3.7, chloride 95, BUN 19, serum creatinine 1.17, hemoglobin at 12.4 g/dL. ASSESSMENT: Hyponatremia hypovolemic, slowly improving. Continue with normal saline. Urine osmolality was at 380 and random urine sodium was 54. The TSH and cortisol were within normal range. The patient is encouraged to increase oral intake of protein. We will repeat another serum sodium in a.m.. MMODL / IJN: [id number] /
--- NOTE | 2018-08-31 16:34 | P.PN ---
Subjective Progress Note Date: 08/31/18 Principal diagnosis: Weakness, syncope, likely related to underlying dehydration, hyponatremia This is a 68-year-old white female patient that was admitted to the hospital on 08/30/2018 dominant with symptoms of weakness, and loss of consciousness. Patient had a recent episode of acute bronchitis, he was treated with prednisone and antibiotics. She has been feeling well since, had been progressively weak. Patient was found to be hyponatremic presentation, likely related to hypovolemia, and dehydration. Chest x-ray on admission showed evidence of possible right pulmonary nodule, and minimal atelectasis in the left lung base. Chest x-ray showed some basilar atelectasis on the left. Patient was fluid resuscitated, brain CT showed no acute intracranial process, moderate pansinusitis, and diffuse age-related cerebral atrophy and chronic small vessel ischemic change. She had another follow-up chest x-ray today, which showed improving left basilar atelectasis. She is up ambulating, she is afebrile, room air pulse ox is 94%. His labs have been reviewed, shows WBC of 9.3, hemoglobin of 12.4, serum sodium is improving, up to 125 from 122, potassium 3.7, chloride is 95, B1 is 19 and creatinine is 1.17, serum cortisol was 15, and TSH was 2.390. Patient [place] any specific complaints, still has slightly congested cough, or dyspnea, no fever or chills. Patient is on oral prednisone, she is receiving IV fluids in the form of 0.9 normal seen at a rate of 100 ML per minute, breathing treatments on an as needed basis, Symbicort and doxycycline. Objective - Vital Signs Vital signs: Vital Signs Temp 98.7 F 08/31/18 14:44 Pulse 69 08/31/18 14:44 Resp 18 08/31/18 14:44 BP 159/93 08/31/18 14:44 Pulse Ox 94 L 08/31/18 14:44 Intake & Output 08/30/18 08/31/18 08/31/18 18:59 06:59 18:59 Intake Total 800 800 Balance 800 800 Weight 58.967 kg Intake: IV 800 800 Sodium Chloride 0.9% 1, 800 800 000 ml @ 100 mls/hr IV . Q10H [facility] Rx#:[id number] Other: # Voids 4 1 2 - Exam GENERAL EXAM: Alert, pleasant, 68-year-old white female patient, hardly on room air, ambulating, in no acute distress HEAD: Normocephalic/atraumatic. EYES: Normal reaction of pupils, equal size. Conjunctiva pink, sclera white. NOSE: Clear with pink turbinates. THROAT: No erythema or exudates. NECK: No masses, no JVD, no thyroid enlargement, no adenopathy. CHEST: No chest wall deformity. Symmetrical expansion. LUNGS: Equal air entry with no crackles, wheeze, rhonchi or dullness. CVS: Regular rate and rhythm, normal S1 and S2, no gallops, no murmurs, no rubs ABDOMEN: Soft, nontender. No hepatosplenomegaly, normal bowel sounds, no guarding or rigidity. EXTREMITIES: No clubbing, no edema, no cyanosis, 2+ pulses and upper and lower extremities. MUSCULOSKELETAL: Muscle strength and tone normal. SPINE: No scoliosis or deformity SKIN: No rashes CENTRAL NERVOUS SYSTEM: Alert and oriented -3. No focal deficits, tone is normal in all 4 extremities. PSYCHIATRIC: Alert and oriented -3. Appropriate affect. Intact judgment and insight. - Labs CBC & Chem 7: 08/31/18 08:03 08/31/18 08:03 Labs: Abnormal Lab Results - Last 24 Hours (Table) 08/30/18 08/31/18 08/31/18 Range/Units 16:35 08:03 08:03 RBC 3.31 L (3.80-5.40) m/uL MCV 109.1 H (80.0-100.0) fL MCH 37.4 H (25.0-35.0) pg Plt Count 80 L (150-450) k/uL Neutrophils # 8.2 H (1.3-7.7) k/uL Lymphocytes # 0.6 L (1.0-4.8) k/uL Sodium 122 L 125 L (137-145) mmol/L Chloride 95 L (98-107) mmol/L BUN 19 H (7-17) mg/dL Creatinine 1.17 H (0.52-1.04) mg/dL Total Protein 5.0 L (6.3-8.2) g/dL Albumin 2.7 L (3.5-5.0) g/dL Assessment and Plan Plan: Assessment: #1. Weakness and syncope, related to underlying dehydration #2. Recent episode of acute bronchitis, treated with antibiotics and steroids, improving #3. Hypovolemic hyponatremia, improving with IV hydration #4. Hypertension #5. Hyperlipidemia #6. History of right breast cancer, status post right mastectomy and subsequent chemoradiation #7. Thrombocytopenia #8. Hyperkalemia, improving #9. Acute kidney injury related to dehydration Plan: Patient is doing well, she was fluid resuscitated, continues with IV fluids for gentle hydration, serum sodium is improving, patient is tolerating ambulation, no specific complaints, still has slightly congested cough, but no dyspnea, no fever or chills, continue with oral antibiotics, oral prednisone and nebulized bronchodilators. Will follow on as-needed basis. I performed a history & physical examination of the patient and discussed their management with my nurse practitioner, Pratima Irvin. I reviewed the nurse practitioner's note and agree with the documented findings and plan of care. Lung sounds are positive for a few scattered rhonchi. The findings and the impression was discussed with the patient. I attest to the documentation by the nurse practitioner. Time with Patient: Less than 30
--- NOTE | 2018-08-31 16:59 | P.PN ---
Subjective Patient is admitted for after syncopal episode secondary to hypovolemia. Patient is also being treated for hypovolemic hyponatremia. Sodium did improve. Patient is also being treated for bronchitis which improved significantly. TSH and cortisol levels are essentially within normal limits Constitutional: Denied any fatigue denied any fever. Cardio vascular: denied any chest pain, palpitations Gastrointestinal denied any nausea vomiting Pulmonary: Denied any shortness of breath cough Neurologic denied any new focal deficits All inpatient medications were reviewed and appropriate changes in these medications as dictated in the interval history and assessment and plan. Objective - Vital Signs Vital signs: Vital Signs Temp 98.7 F 08/31/18 14:44 Pulse 69 08/31/18 14:44 Resp 18 08/31/18 14:44 BP 159/93 08/31/18 14:44 Pulse Ox 94 L 08/31/18 14:44 Intake & Output 08/30/18 08/31/18 08/31/18 18:59 06:59 18:59 Intake Total 800 800 Balance 800 800 Weight 58.967 kg Intake: IV 800 800 Sodium Chloride 0.9% 1, 800 800 000 ml @ 100 mls/hr IV . Q10H [facility] Rx#:[id number] Other: # Voids 4 1 2 - Exam PHYSICAL EXAMINATION: GENERAL: The patient is alert and oriented x3, not in any acute distress. Well developed, well nourished. HEENT: Pupils are round and equally reacting to light. EOMI. No scleral icterus. No conjunctival pallor. Normocephalic, atraumatic. No pharyngeal erythema. No thyromegaly. CARDIOVASCULAR: S1 and S2 present. No murmurs, rubs, or gallops. PULMONARY: Chest is clear to auscultation, no wheezing or crackles. ABDOMEN: Soft, nontender, nondistended, normoactive bowel sounds. No palpable organomegaly. MUSCULOSKELETAL: No joint swelling or deformity. EXTREMITIES: No cyanosis, clubbing, or pedal edema. NEUROLOGICAL: Gross neurological examination did not reveal any focal deficits. SKIN: No rashes. - Labs CBC & Chem 7: 08/31/18 08:03 08/31/18 08:03 Labs: Abnormal Lab Results - Last 24 Hours (Table) 08/30/18 08/31/18 08/31/18 Range/Units 16:35 08:03 08:03 RBC 3.31 L (3.80-5.40) m/uL MCV 109.1 H (80.0-100.0) fL MCH 37.4 H (25.0-35.0) pg Plt Count 80 L (150-450) k/uL Neutrophils # 8.2 H (1.3-7.7) k/uL Lymphocytes # 0.6 L (1.0-4.8) k/uL Sodium 122 L 125 L (137-145) mmol/L Chloride 95 L (98-107) mmol/L BUN 19 H (7-17) mg/dL Creatinine 1.17 H (0.52-1.04) mg/dL Total Protein 5.0 L (6.3-8.2) g/dL Albumin 2.7 L (3.5-5.0) g/dL Assessment and Plan Plan: -Syncopal episode: Secondary to hypotension and hypovolemia patient will continue on IV fluids hold off on antihypertensive medications at this time. -Hyponatremia: Hypovolemic hyponatremia along with hydrochlorothiazide contributing to hyponatremia can he with IV fluids hold off on offending medications as mentioned above. -Bronchitis will be continued on doxycycline and the oral steroids -Hypomagnesemia magnesium was supplemented -Acute renal failure prerenal azotemia from hypovolemia and hypotension can you with IV fluids as mentioned above -Hypertension: Patient is currently hypotensive hold off on her antidepressant medications -Hyperlipidemia continue with her statin. -History of right breast cancer status post right mastectomy and chemoradiation subsequently -Hypokalemia secondary to hypomagnesemia both of which will be supplemented
[2018-08-31 19:52] VITALS: RESP 18
[2018-08-31] MEDS: cloNIDine HCL 0.2 MG TAB PO SCH (21:36)
[2018-09-01] MEDS: SODIUM CHLORIDE 0.9% 1,000 ML IV SCH (04:35)
[2018-09-01 07:34] VITALS: BP 162/94; TEMP 98.3
[2018-09-01 08:36] LABS: Basophils % (A) 0 %; Eosinophils % (A) 0 %; HCT 36.5 % (34.0-46.0); HGB 12.3 gm/dL (11.4-16.0); Lymphocytes # (A) 1.1 k/uL (1.0-4.8); Lymphocytes % (A) 14 %; MCH 37.4 pg (25.0-35.0); MCHC 33.7 g/dL (31.0-37.0); MCV 110.9 fL (80.0-100.0); Macrocytosis Marked; Mean Platelet Volume 8.6; Monocytes # (A) 0.3 k/uL (0-1.0); Monocytes % (A) 4 %; Neutrophils # (A) 6.2 k/uL (1.3-7.7); Neutrophils % (A) 81 %; RBC 3.29 m/uL (3.80-5.40); RDW 14.2 % (11.5-15.5); WBC 7.7 k/uL (3.8-10.6)
[2018-09-01 08:38] LABS: Platelet Count 82 k/uL (150-450)
[2018-09-01] MEDS: CITALOPRAM HYDROBROMIDE 20 MG TAB PO SCH (08:40)
[2018-09-01] MEDS: DOXYCYCLINE 100 MG CAP PO SCH (08:40)
[2018-09-01] MEDS: cloNIDine HCL 0.2 MG TAB PO SCH (08:40)
[2018-09-01] MEDS: FAMOTIDINE 20 MG TAB PO SCH (08:40)
[2018-09-01] MEDS: ASPIRIN 81 MG PO SCH (08:40)
[2018-09-01] MEDS: LETROZOLE 2.5 MG TAB PO SCH (08:40)
[2018-09-01] MEDS: predniSONE 10 MG TAB PO SCH (08:40)
[2018-09-01] MEDS: SYMBICORT 160-4.5 MCG INHALER INHALATION SCH (08:45)
[2018-09-01 09:00] VITALS: PULSE 80
[2018-09-01 09:02] LABS: Albumin 2.5 g/dL (3.5-5.0); Calcium 8.6 mg/dL (8.4-10.2); Magnesium 1.5 mg/dL (1.6-2.3); Phosphorus 2.6 mg/dL (2.5-4.5); Potassium 3.3 mmol/L (3.5-5.1); Total Bilirubin 0.7 mg/dL (0.2-1.3); Total Protein 4.9 g/dL (6.3-8.2)
[2018-09-01] MEDS ORDERED: ATENOLOL 50 MG TAB PO SCH (10:00)
[2018-09-01 11:06] LABS: Poikilocytosis (M) Present
[2018-09-01] MEDS ORDERED: Magnesium Replacement Protocol 1 EACH MISC MISCELLANE PRN (11:46)
--- NOTE | 2018-09-01 13:37 | PN ---
PROGRESS NOTE The patient is seen for followup for hyponatremia. The patient's sodium has improved to 130. She is currently maintained on IV fluids. She is doing well. PHYSICAL EXAMINATION: On examination, blood pressure was 162/94, heart rate 76 per minute. Patient is afebrile. EXAMINATION OF THE HEART: S1, S2. EXAMINATION OF THE LUNGS: Bilateral breath sounds are heard. Abdomen is soft, nontender. Examination of the lower extremities shows no significant edema. [employer] exam is grossly intact. LABS: Labs show sodium 130, potassium 3.7, BUN 16, serum creatinine 1.0. ASSESSMENT: 1. Acute kidney injury, prerenal, currently improved. Creatinine down to 1.0 from 1.5 on initial admission. 2. Hypovolemic hyponatremia, now improved. Sodium is up to 130 from 119. 3. Hypokalemia, will replace. 4. History of right breast cancer, status post right mastectomy and radiation therapy. PLAN: Continue with saline. Maintain good oral protein intake and maintain some degree of free water restriction. MMODL / IJN: [id number] /
--- NOTE | 2018-09-01 15:30 | P.PN ---
Subjective Progress Note Date: 09/01/18 Principal diagnosis: Weakness, syncope, likely related to underlying dehydration, hyponatremia This is a 68-year-old white female patient that was admitted to the hospital on 08/30/2018 dominant with symptoms of weakness, and loss of consciousness. Patient had a recent episode of acute bronchitis, he was treated with prednisone and antibiotics. She has been feeling well since, had been progressively weak. Patient was found to be hyponatremic presentation, likely related to hypovolemia, and dehydration. Chest x-ray on admission showed evidence of possible right pulmonary nodule, and minimal atelectasis in the left lung base. Chest x-ray showed some basilar atelectasis on the left. Patient was fluid resuscitated, brain CT showed no acute intracranial process, moderate pansinusitis, and diffuse age-related cerebral atrophy and chronic small vessel ischemic change. She had another follow-up chest x-ray today, which showed improving left basilar atelectasis. She is up ambulating, she is afebrile, room air pulse ox is 94%. His labs have been reviewed, shows WBC of 9.3, hemoglobin of 12.4, serum sodium is improving, up to 125 from 122, potassium 3.7, chloride is 95, B1 is 19 and creatinine is 1.17, serum cortisol was 15, and TSH was 2.390. Patient [place] any specific complaints, still has slightly congested cough, or dyspnea, no fever or chills. Patient is on oral prednisone, she is receiving IV fluids in the form of 0.9 normal seen at a rate of 100 ML per minute, breathing treatments on an as needed basis, Symbicort and doxycycline. On 09/01/2018 patient seen in follow-up on medical surgical floor. Resting comfortably in bed, in no acute distress, denies any specific complaints, no dyspnea, no cough, no chest congestion, no chest pain, no fever or chills, room air pulse ox is 92%, today's labs were reviewed, blood blood count is 7.7, hemoglobin is 12.3, serum sodium is improving, 1:30 today, potassium is 3.3, renal profile is within normal limits. No new chest x-rays today, patient is cleared for discharge from pulmonary perspective. Has been ambulating about the room, tolerating activity well. Objective - Vital Signs Vital signs: Vital Signs Temp 98.3 F 09/01/18 07:00 Pulse 80 09/01/18 08:57 Resp 18 08/31/18 19:51 BP 162/94 09/01/18 07:00 Pulse Ox 92 L 09/01/18 07:00 Intake & Output 08/31/18 09/01/18 09/01/18 18:59 06:59 18:59 Intake Total 800 1000 120 Balance 800 1000 120 Intake: IV 800 Sodium Chloride 0.9% 1, 800 000 ml @ 100 mls/hr IV . Q10H [facility] Rx#:[id number] Intake, IV Titration 1000 Amount Sodium Chloride 0.9% 1, 1000 000 ml @ 100 mls/hr IV . Q10H [facility] Rx#:[id number] Oral 120 Other: # Voids 2 2 - Exam GENERAL EXAM: Alert, pleasant, 68-year-old white female patient, hardly on room air, ambulating, in no acute distress HEAD: Normocephalic/atraumatic. EYES: Normal reaction of pupils, equal size. Conjunctiva pink, sclera white. NOSE: Clear with pink turbinates. THROAT: No erythema or exudates. NECK: No masses, no JVD, no thyroid enlargement, no adenopathy. CHEST: No chest wall deformity. Symmetrical expansion. LUNGS: Equal air entry with no crackles, wheeze, rhonchi or dullness. CVS: Regular rate and rhythm, normal S1 and S2, no gallops, no murmurs, no rubs ABDOMEN: Soft, nontender. No hepatosplenomegaly, normal bowel sounds, no guarding or rigidity. EXTREMITIES: No clubbing, no edema, no cyanosis, 2+ pulses and upper and lower extremities. MUSCULOSKELETAL: Muscle strength and tone normal. SPINE: No scoliosis or deformity SKIN: No rashes CENTRAL NERVOUS SYSTEM: Alert and oriented -3. No focal deficits, tone is normal in all 4 extremities. PSYCHIATRIC: Alert and oriented -3. Appropriate affect. Intact judgment and insight. - Labs CBC & Chem 7: 09/01/18 08:02 09/01/18 08:02 Labs: Abnormal Lab Results - Last 24 Hours (Table) 09/01/18 09/01/18 Range/Units 08:02 08:02 RBC 3.29 L (3.80-5.40) m/uL MCV 110.9 H (80.0-100.0) fL MCH 37.4 H (25.0-35.0) pg Plt Count 82 L (150-450) k/uL Sodium 130 L (137-145) mmol/L Potassium 3.3 L (3.5-5.1) mmol/L Glucose 103 H (74-99) mg/dL Magnesium 1.5 L (1.6-2.3) mg/dL Total Protein 4.9 L (6.3-8.2) g/dL Albumin 2.5 L (3.5-5.0) g/dL Assessment and Plan Plan: Assessment: #1. Weakness and syncope, related to underlying dehydration #2. Recent episode of acute bronchitis, treated with antibiotics and steroids, improving #3. Hypovolemic hyponatremia, improving with IV hydration #4. Hypertension #5. Hyperlipidemia #6. History of right breast cancer, status post right mastectomy and subsequent chemoradiation #7. Thrombocytopenia #8. Hyperkalemia, improving #9. Acute kidney injury related to dehydration Plan: She is doing well, no acute events overnight, vital signs are stable, serum sodium is improving, patient is tolerating ambulation. From pulmonary perspective patient is stable, for discharge home today. I performed a history & physical examination of the patient and discussed their management with my nurse practitioner, Pratima Irvin. I reviewed the nurse practitioner's note and agree with the documented findings and plan of care. Lung sounds are positive for a few scattered rhonchi. The findings and the impression was discussed with the patient. I attest to the documentation by the nurse practitioner. Time with Patient: Less than 30
== END 2018-09-01 14:25 | disposition home or self-care (01) | DRG 641 ==
LOC: EC 21:58 → 2SICU 08-30 00:36 → 4SSUR 08-30 17:51
PROVIDERS: ADMIT Hospitalist; ATTEND Hospitalist
DX: E87.1 Hypo-osmolality and hyponatremia (principal); N17.9 Acute kidney failure, unspecified; J98.11 Atelectasis; J44.0 Chronic obstructive pulmonary disease with (acute) lower respiratory infection; D69.6 Thrombocytopenia, unspecified; E78.5 Hyperlipidemia, unspecified; E83.42 Hypomagnesemia; E86.0 Dehydration; E86.1 Hypovolemia; E87.6 Hypokalemia; F17.200 Nicotine dependence, unspecified, uncomplicated; F41.9 Anxiety disorder, unspecified; I10 Essential (primary) hypertension; T50.2X5A Adverse effect of carbonic-anhydrase inhibitors, benzothiadiazides and other diuretics, initial encounter; Z79.82 Long term (current) use of aspirin; Z79.899 Other long term (current) drug therapy; Z85.3 Personal history of malignant neoplasm of breast; Z90.11 Acquired absence of right breast and nipple; Z92.3 Personal history of irradiation; Z90.49 Acquired absence of other specified parts of digestive tract; J20.9 Acute bronchitis, unspecified
CPT/HCPCS: 36415; 51701; 70450; 71045; 71046; 72125; 80053; 80320; 81003; 82533; 82570; 83036; 83735; 83930; 83935; 84100; 84132; 84133; 84295; 84300; 84443; 84484; 84540; 85025; 85610; 85730; 93005; 94640; 96360; 99285

== ENCOUNTER → 2019-01-25 | Outpatient (CLI) | payer MEDICARE ==
--- NOTE | 2019-01-26 07:56 | CT ---
EXAMINATION TYPE: CT ChestAbdPelvis wo con DATE OF EXAM: 01/25/2019 COMPARISON: Most recent CT December 22, 2017 and older CTs. PET/CT May 15, 2012 HISTORY: Follow up for breast cancer. Initially diagnosed 2011. CT DLP: 364.3 mGycm. Automated Exposure Control for Dose Reduction was Utilized. TECHNIQUE: CT scan of the thorax, abdomen and pelvis is performed with oral but without IV contrast. FINDINGS: LUNGS: There is underlying mild emphysematous and chronic parenchymal change bilaterally without susp icious new nodules or masses. No pleural effusion or pneumothorax is noted bilaterally. Tracheobronch ial tree is patent. MEDIASTINUM: There are no greater than 1 cm hilar or mediastinal lymph nodes. No cardiomegaly or p ericardial effusion is seen. There is stable right pericardial cyst or fluid collection axial image 36. OTHER: Surgical changes right breast are redemonstrated. There is a chronic 7 mm nodularity axial marvel ge 31 unchanged from 2018 study axial image 28 and 2015 study axial image 29. LIVER/GB: Gallbladder is surgically absent. PANCREAS: No significant abnormality is seen. SPLEEN: No significant abnormality is seen. ADRENALS: Low dense thickening to both adrenal glands is unchanged from 2015 study consistent with li pid rich hyperplasia and/or benign lipid rich adenomas. KIDNEYS: Persistent suspicious heterogeneous slightly hypodense exophytic 2.3 cm right renal lesion p osteriorly axial image 61 mid pole level. Asymmetric atrophy and cortical thinning to the left kidney is redemonstrated BOWEL: The oral contrast reaches level of rectum. There is mild wall thickening involving portions of left and sigmoid colon. Cannot exclude colitis at this level. No suspicious small or large bowel dil atation.. GENITAL ORGANS: Anteverted uterus with heterogeneity and calcification suggests underlying fibroid. LYMPH NODES: No greater than 1cm abdominal or pelvic lymph nodes are appreciated. OSSEOUS STRUCTURES: There is new but felt chronic or less likely subacute right lateral rib fracture axial image 52. 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 There is vacuum disc phenomenon with mo derate to severe disc space narrowing at lumbosacral junction. There is stable mild height loss at gibson perior L1 endplate. No new suspicious osseous lesions. OTHER: There is persistent spigelian type hernia right pelvis coronal image 22-containing mesenteric fat in tiny vessels as well as contrast nondilated bowel loops felt stable. Numerous coils in the ant erior pelvis are redemonstrated. There is persistent moderate calcified plaque of the ectatic abdominal aorta measuring up to 2.6 cm i n diameter axial image 65. No greater than 3 cm aneurysmal change is seen. IMPRESSION: Stable suspicious right renal mass less well seen on noncontrast CT. Right-sided mastecto my changes with chronic nodularity. No new mass or adenopathy identified to suggest metastatic malign anil recurrence..
== END | disposition home or self-care (01) ==
LOC: RADCTMAIN 16:57
PROVIDERS: ATTEND Internal Medicine Hematology & Oncology
DX: N63.10 Unspecified lump in the right breast, unspecified quadrant (principal); N28.89 Other specified disorders of kidney and ureter; Z90.11 Acquired absence of right breast and nipple
CPT/HCPCS: 36415; 71250; 74176; 82565; 84520

== ENCOUNTER → 2019-04-15 | Outpatient (CLI) | payer MEDICARE ==
--- NOTE | 2019-04-16 11:17 | NM ---
EXAMINATION TYPE: NM bone scan whole body DATE OF EXAM: 04/15/2019 COMPARISON: NONE HISTORY: C 50.919 Delayed whole-body scanning was performed following the injection of 22.4 mCi Tc 99m MDP. Images wer e acquired 5 hours post injection. FINDINGS: There is increased uptake in the region of the distal left foreleg. Degenerative type uptake is prese nt within the left knee. Right knee prosthesis is noted with a photopenic defect. Uptake is present a t the first metatarsophalangeal joint space and at the distal left great toe. There is increased upta ke at the right hip and acetabulum likely degenerative in nature. IMPRESSION: 1. Degenerative type uptake present. 2. Some focal uptake within the distal left foreleg is present. Correlation with left ankle images is recommended. Findings are likely degenerative in nature. This is unusual location for solitary metas tasis.
== END ==
LOC: RADNMMAIN 11:01
PROVIDERS: ATTEND Internal Medicine Hematology & Oncology
DX: C79.51 Secondary malignant neoplasm of bone (principal); R93.7 Abnormal findings on diagnostic imaging of other parts of musculoskeletal system; C50.919 Malignant neoplasm of unspecified site of unspecified female breast
CPT/HCPCS: 78306; A9503

== ENCOUNTER → 2019-04-29 | Outpatient (CLI) | payer MEDICARE ==
--- NOTE | 2019-04-29 13:14 | MM ---
Reason for exam: additional evaluation requested from prior study. Last mammogram was performed 2 years and 4 months ago. History: Patient is postmenopausal and has history of breast cancer at age 52. Excisional biopsy of the right breast, July 14, 2005. Mastectomy of the right breast, July 2003. Taking tamoxifen for 2 years 6 months beginning at age 53. Physical Findings: Nurse did not find any significant physical abnormalities on exam. MG Diagnostic Mammo LT w CAD CC and MLO view(s) were taken of the left breast. Prior study comparison: December 15, 2016, left breast MG diagnostic mammo LT w CAD. November 15, 2015, left breast MG 3d diag mammo w/cad LT. The breast tissue is heterogeneously dense. This may lower the sensitivity of mammography. Benign appearing calcifications in the left breast. No suspicious abnormality. No significant changes when compared with prior studies. ASSESSMENT: Benign, BI-RAD 2 RECOMMENDATION: Routine screening mammogram of the left breast in 1 year.
== END | disposition home or self-care (01) ==
LOC: RADMAMWWP 11:05
PROVIDERS: ATTEND Internal Medicine Hematology & Oncology
DX: Z08 Encounter for follow-up examination after completed treatment for malignant neoplasm (principal); Z90.11 Acquired absence of right breast and nipple; Z85.3 Personal history of malignant neoplasm of breast
CPT/HCPCS: 77065

== ENCOUNTER → 2019-10-22 | Outpatient (CLI) | payer MEDICARE ==
--- NOTE | 2019-10-23 14:05 | PE ---
EXAMINATION TYPE: PET CT fusion skull to thigh DATE OF EXAM: 10/22/2019 COMPARISON: Chest abdomen pelvis CT 01/25/2019 Prior PET/CT: 05/15/2012 HISTORY: Breast cancer TECHNIQUE: Following the intravenous administration of 12.143 mCi of F-18 FDG, whole body images are performed from the skull base to the midthigh. Images are reviewed on the computer in the coronal, axial, and sagittal planes. Reconstructed rotating images are created on independent workstation and reviewed on the computer. A localization and attenuation correction CT is performed in conjunction with the PET scan. DLP: 272.96 mGycm SCAN: Subsequent Scan Blood glucose: 62 mg/dL Average Mediastinum SUV: 1.08 Average Liver SUV: 1.2 FINDINGS: NECK: No abnormal uptake THORAX: Some mild uptake is in the region of the left shoulder and milder degree at the right shoulde r. Findings can be related to degenerative changes. No suspicious uptake is within the thorax. ABDOMEN: No abnormal uptake is evident within the adrenal glands. No suspicious uptake to suggest met astatic disease within the abdomen is evident. The density on the posterior right mid kidney is again identified and has an SUV value 1.07 and is likely a benign process. PELVIS: No abnormal uptake within the intrapelvic soft tissues. There is intense uptake throughout th e musculature within the pelvis including gluteal muscles and upper thigh muscles within the field-of -view. This could be related to motion during the injection. Suspicious uptake to suggest metastatic disease is not evident. OSSEOUS STRUCTURES: No abnormal uptake. No suspicious uptake within the ribs is evident. The rib frac ture on the lateral right lower rib is without abnormal uptake suggesting this to be old nonunion. LOCALIZATION CT: Ascending thoracic aorta at the level the main pulmonary artery is 3.7 cm. The main pulmonary artery the bifurcation is 3.1 cm. Minimal coronary artery calcifications present. Adrenal g lands appear prominent. COMPARISON: Chest abdomen pelvis CT findings again identified on the localization CT. No significant interval changes evident. IMPRESSION: 1. No suspicious abnormal radiotracer accumulation to suggest metastatic disease.
== END | disposition home or self-care (01) ==
LOC: RADPETMAIN 10:02
PROVIDERS: ATTEND Internal Medicine Hematology & Oncology
DX: C50.811 Malignant neoplasm of overlapping sites of right female breast (principal)
CPT/HCPCS: 78815; A9552

== ENCOUNTER 2020-07-19 00:18 | Inpatient (IN) | payer MEDICARE ==
[2020-07-19] MEDS ORDERED: HYDROmorphone 0.5 MG/0.5 ML SYRINGE IVP STA (00:57)
[2020-07-19] MEDS ORDERED: SODIUM CHLORIDE 0.9% 1,000 ML IV STA (00:57)
[2020-07-19] MEDS ORDERED: ONDANSETRON 4 MG/2 ML VIAL IVP STA (00:57)
[2020-07-19 01:29] LABS: Basophils # (A) 0.1 k/uL (0-0.2); Basophils % (A) 0 %; Eosinophils % (A) 0 %; HCT 44.7 % (34.0-46.0); HGB 14.7 gm/dL (11.4-16.0); Lymphocytes # (A) 0.3 k/uL (1.0-4.8); Lymphocytes % (A) 2 %; MCH 36.8 pg (25.0-35.0); Macrocytosis Marked; Mean Platelet Volume 8.4; Monocytes # (A) 0.6 k/uL (0-1.0); Monocytes % (A) 4 %; Neutrophils # (A) 13.9 k/uL (1.3-7.7); Neutrophils % (A) 93 %; Platelet Count 191 k/uL (150-450); RDW 14.6 % (11.5-15.5); WBC 14.9 k/uL (3.8-10.6)
[2020-07-19 01:34] LABS: MCV 111.7 fL (80.0-100.0)
[2020-07-19 01:40] LABS: Albumin 2.8 g/dL (3.5-5.0); Calcium 8.6 mg/dL (8.4-10.2); Potassium 3.4 mmol/L (3.5-5.1); Total Bilirubin 1.4 mg/dL (0.2-1.3)
[2020-07-19 01:47] LABS: Appearance,Urine Clear (Clear); Bacteria,Urine Rare /hpf; Bilirubin,Urine Negative (Negative); Blood,Urine Small (Negative); Color,Urine Yellow; Glucose,Urine (UA) Negative (Negative); Hyaline Casts,Urine 1 /lpf (0-2); Ketones,Urine Negative (Negative); Leukocyte Esterase,Urine Negative (Negative); Mucus,Urine Rare /hpf; Nitrite,Urine Negative (Negative); PH, Urine 6.5 (5.0-8.0); Protein,Urine 2+ (Negative); RBC,Urine <1 /hpf (0-5); Specific Gravity,Urine 1.011 (1.001-1.035); Squamous Epithelial Cell,Urine <1 /hpf (0-4); Urobilinogen,Urine <2.0 mg/dL (<2.0); WBC,Urine 1 /hpf (0-5)
[2020-07-19 02:05] LABS: INR 1.1 (<1.2)
[2020-07-19] MEDS: SODIUM CHLORIDE 0.9% 1,000 ML IV SCH ×3 (02:36→18:43)
--- NOTE | 2020-07-19 02:36 | CT ---
EXAM: CT Abdomen and Pelvis With Intravenous Contrast CLINICAL HISTORY: ITS.REASON CT Reason: abdominal pain TECHNIQUE: Axial computed tomography images of the abdomen and pelvis with intravenous contrast. CTDI is 17.5 mGy and DLP is 653.1 mGy-cm. This CT exam was performed using one or more of the following dose reduction techniques: automated exposure control, adjustment of the mA and/or kV according to patient size, and/or use of iterative reconstruction technique. COMPARISON: CT 01/25/19. FINDINGS: Lung bases: Small bilateral pleural effusions with bibasilar atelectasis/infiltrate. ABDOMEN: Liver: Fatty liver. Gallbladder and bile ducts: Cholecystectomy. Pancreas: Masslike density inseparable from the pancreatic tail, gastric fundus, and left adrenal gland measuring approximately 8.2 cm. Spleen: Unremarkable. Adrenals: Heterogeneous bilateral adrenal lesions, concerning for malignancy. Kidneys and ureters: Redemonstration of right renal lesion measuring 2. 9 cm. Nonspecific perinephric stranding. No significant hydronephrosis. Stomach and bowel: Gastric and areas of small and large bowel wall thickening or underdistention. Scattered colonic diverticula. PELVIS: Appendix: Normal caliber appendix. Bladder: Slightly thickened underdistended bladder. Reproductive: Heterogeneous uterine lesion, possible fibroid or other etiology. ABDOMEN and PELVIS: Intraperitoneal space: Stranding and fluid in the abdomen, more prominent in the upper abdomen. Bones/joints: Sclerotic changes again noted in the bilateral femoral heads, can be seen with avascular necrosis. Soft tissues: Postsurgical changes in the right breast. Focal skin thickening of the left breast. Correlate with breast imaging. Vasculature: Atherosclerotic disease. Aneurysmal dilatation of the infrarenal aorta measuring 3.3 cm Lymph nodes: Small nonspecific mesenteric and retroperitoneal lymph nodes. IMPRESSION: 1. Stranding and fluid in the abdomen. Correlate with biochemical markers regarding pancreatitis. Other etiologies not excluded. 2. Masslike density inseparable from the pancreatic tail, gastric fundus, and left adrenal gland. Differential considerations include mass, adenopathy, hematoma, or complex fluid collection. 3. Redemonstration of right renal lesion suggestive of neoplasm. 4. Gastric and areas of small and large bowel wall thickening or underdistention. Correlate clinically regarding inflammatory/infectious process. 5. Small bilateral pleural effusions with bibasilar atelectasis/infiltrate. 6. Additional findings, as above.
[2020-07-19] MEDS ORDERED: PIPERACILLIN-TAZOBACTAM 3.375 GM in SODIUM CHLORIDE 0.9% 100 ML IVPB ONE (03:00)
[2020-07-19] MEDS ORDERED: LORazepam 2 MG/ML INJ IV PRN ×3 (03:15)
[2020-07-19] MEDS ORDERED: NALOXONE 0.4 MG/ML 1 ML VIAL IV PRN (03:20)
--- NOTE | 2020-07-19 03:24 | ED ---
General Adult HPI - General Chief complaint: Abdominal Pain Stated complaint: NVD, abdominal pain Time Seen by Provider: 07/19/20 00:26 Source: patient, RN notes reviewed, old records reviewed Mode of arrival: ambulatory Limitations: no limitations - History of Present Illness Initial comments: 69-year-old female patient to ED for abdominal pain. Reports pain is epigastric upper quadrant region for the last 3 days. Reports nausea and vomiting. Denies chest pain shortness of breath. Patient has a history of breast cancer in remission. Is a daily drinker. Systemic: Pt denies fatigue, fever/chills, rash. Pt denies weakness, night sweats, weight loss. Neuro: Pt denies headache, visual disturbances, syncope or pre-syncope. HEENT: Pt denies ocular discharge or irritation, otalgia, rhinorrhea, pharyngitis or notable lymphadenopathy. Cardiopulmonary: Pt denies chest pain, SOB, heart palpitations, dyspnea on exertion. Abdominal/GI: Pt denies abdominal pain, n/v/d. : Pt denies dysuria, burning w/ urination, frequency/urgency. Denies new onset urinary or bowel incontinence. MSK: Pt denies myalgia, loss of strength or function in extremities. Neuro: Pt denies new onset weakness, paresthesias. - Related Data Home Medications Medication Instructions Recorded Confirmed Albuterol Inhaler (Mhu) [Ventolin 1 - 2 puff INHALATION RT-Q6H PRN 08/30/18 08/30/18 Hfa Inhaler (Mhu)] Aspirin EC [Ecotrin Low Dose] 81 mg PO DAILY 08/30/18 08/30/18 Cholecalciferol [Vitamin D3 (25 1,000 unit PO DAILY 08/30/18 08/30/18 Mcg = 1000 Iu)] Citalopram Hydrobromide [CeleXA] 20 mg PO DAILY 08/30/18 08/30/18 Letrozole [Femara] 2.5 mg PO DAILY 08/30/18 08/30/18 Loratadine [Claritin] 10 mg PO DAILY 08/30/18 08/30/18 atenoloL [Atenolol] 100 mg PO DAILY 08/30/18 08/30/18 Previous Rx's Medication Instructions Recorded Budesonide-Formot 160-4.5 Mcg 2 puff INHALATION RT-BID #1 inh 09/01/18 [Symbicort 160-4.5 Mcg Inhaler] Doxycycline [Vibramycin] 100 mg PO BID #6 cap 09/01/18 predniSONE 10 mg PO DIRECTED #30 tab 09/01/18 Allergies Allergy/AdvReac Type Severity Reaction Status Date / Time adhesive tape Allergy Rash/Hives Verified 07/19/20 00:23 Review of Systems ROS Statement: Those systems with pertinent positive or pertinent negative responses have been documented in the HPI. ROS Other: All systems not noted in ROS Statement are negative. Past Medical History Past Medical History: Cancer, Hyperlipidemia, Hypertension Additional Past Medical History / Comment(s): right breast History of Any Multi-Drug Resistant Organisms: None Reported Past Surgical History: Breast Surgery, Cholecystectomy, Joint Replacement Additional Past Surgical History / Comment(s): ectopic , knee, neck for tumor removal Past Psychological History: Anxiety Smoking Status: Current every day smoker Past Alcohol Use History: Occasional Past Drug Use History: None Reported General Exam - General Exam Comments Initial Comments: Constitutional: NAD, AOX3, Pt has pleasant affect. HEENT: NC/AT, trachea midline, neck supple, no lymphadenopathy. Posterior pharynx non erythematous, without exudates. External ears appear normal, without discharge. Mucous membranes moist. Eyes PERRLA, EOM intact. There is no scleral icterus. No pallor noted. Cardiopulmonary: RRR, no murmurs, rubs or gallops, no JVD noted. Lungs CTAB in anterior and posterior wiseman. No peripheral edema. Abdominal exam: Abdomen soft and non-distended. Abdomen mildly tender to palpation epigatric region, left upper quadrant region. Neuro: CN II-XII grossly intact. No nuchal rigidity. No raccon eyes, no chan sign, no hemotympanum. No cervical spinal tenderness. MSK: No posterior calf tenderness bilaterally, homans sign negative bilaterally. Posterior tibialis and radial pulse +2 bilaterally. Sensation intact in upper and lower extremities. Full active ROM in upper and lower extremities, 5/5 stregnth. Limitations: no limitations Course Vital Signs 07/19/20 07/19/20 07/19/20 00:22 01:42 02:15 Temperature 98 F Pulse Rate 84 105 H 105 H Respiratory 18 20 20 Rate Blood Pressure 208/113 140/80 165/80 O2 Sat by Pulse 96 96 96 Oximetry Medical Decision Making - Medical Decision Making 69-year-old female patient the ED abdominal pain nausea vomiting with upper qu adrant epigastric. Patient vital signs display mild tachycardia. Hypertension. Improve with analgesia. Physical exam displayed mild tenderness left upper quadrant epigastric. Lymph investigations of present for pancreatitis. Elevated lactic acid. Cytosis. Patient is sheeted on IV fluids, antibiotics. CT abdomen and pelvis with multiple findings. Distal pancreatitis possible pancreatic mass, possible renal mass. EKG displayed new onset atrial fibrillation. Rate is currently well controlled. Hemoglobin stable. Patient be admitted for further evaluation, GI, surgery, cardiology. Case discussed with Dr. Beavers. - Lab Data Result diagrams: 07/19/20 01:15 07/19/20 01:15 Lab Results 07/19/20 07/19/20 07/19/20 Range/Units 01:15 01:15 01:15 WBC 14.9 H (3.8-10.6) k/uL RBC 4.00 (3.80-5.40) m/uL Hgb 14.7 (11.4-16.0) gm/dL Hct 44.7 (34.0-46.0) % MCV 111.7 H (80.0-100.0) fL MCH 36.8 H (25.0-35.0) pg MCHC 33.0 (31.0-37.0) g/dL RDW 14.6 (11.5-15.5) % Plt Count 191 (150-450) k/uL MPV 8.4 Neutrophils % 93 % Lymphocytes % 2 % Monocytes % 4 % Eosinophils % 0 % Basophils % 0 % Neutrophils # 13.9 H (1.3-7.7) k/uL Lymphocytes # 0.3 L (1.0-4.8) k/uL Monocytes # 0.6 (0-1.0) k/uL Eosinophils # 0.0 (0-0.7) k/uL Basophils # 0.1 (0-0.2) k/uL Macrocytosis Marked A PT (9.0-12.0) sec INR (<1.2) APTT (22.0-30.0) sec Sodium 133 L (137-145) mmol/L Potassium 3.4 L (3.5-5.1) mmol/L Chloride 102 (98-107) mmol/L Carbon Dioxide 18 L (22-30) mmol/L Anion Gap 13 mmol/L BUN 14 (7-17) mg/dL Creatinine 0.94 (0.52-1.04) mg/dL Est GFR (CKD-EPI)AfAm 73 (>60 ml/min/1.73 sqM) Est GFR (CKD-EPI)NonAf 63 (>60 ml/min/1.73 sqM) Glucose 135 H (74-99) mg/dL Plasma Lactic Acid Julio (0.7-2.0) mmol/L Calcium 8.6 (8.4-10.2) mg/dL Total Bilirubin 1.4 H (0.2-1.3) mg/dL AST 69 H (14-36) U/L ALT 25 (4-34) U/L Alkaline Phosphatase 316 H (38-126) U/L Troponin I (0.000-0.034) ng/mL Total Protein 6.0 L (6.3-8.2) g/dL Albumin 2.8 L (3.5-5.0) g/dL Lipase 3173 H (23-300) U/L Urine Color Yellow Urine Appearance Clear (Clear) Urine pH 6.5 (5.0-8.0) Ur Specific Golden 1.011 (1.001-1.035) Urine Protein 2+ H (Negative) Urine Glucose (UA) Negative (Negative) Urine Ketones Negative (Negative) Urine Blood Small H (Negative) Urine Nitrite Negative (Negative) Urine Bilirubin Negative (Negative) Urine Urobilinogen <2.0 (<2.0) mg/dL Ur Leukocyte Esterase Negative (Negative) Urine RBC <1 (0-5) /hpf Urine WBC 1 (0-5) /hpf Ur Squamous Epith Cells <1 (0-4) /hpf Urine Bacteria Rare H (None) /hpf Hyaline Casts 1 (0-2) /lpf Urine Mucus Rare H (None) /hpf 07/19/20 07/19/20 07/19/20 Range/Units 01:15 01:15 01:31 WBC (3.8-10.6) k/uL RBC (3.80-5.40) m/uL Hgb (11.4-16.0) gm/dL Hct (34.0-46.0) % MCV (80.0-100.0) fL MCH (25.0-35.0) pg MCHC (31.0-37.0) g/dL RDW (11.5-15.5) % Plt Count (150-450) k/uL MPV Neutrophils % % Lymphocytes % % Monocytes % % Eosinophils % % Basophils % % Neutrophils # (1.3-7.7) k/uL Lymphocytes # (1.0-4.8) k/uL Monocytes # (0-1.0) k/uL Eosinophils # (0-0.7) k/uL Basophils # (0-0.2) k/uL Macrocytosis PT 11.0 (9.0-12.0) sec INR 1.1 (<1.2) APTT 25.0 (22.0-30.0) sec Sodium (137-145) mmol/L Potassium (3.5-5.1) mmol/L Chloride (98-107) mmol/L Carbon Dioxide (22-30) mmol/L Anion Gap mmol/L BUN (7-17) mg/dL Creatinine (0.52-1.04) mg/dL Est GFR (CKD-EPI)AfAm (>60 ml/min/1.73 sqM) Est GFR (CKD-EPI)NonAf (>60 ml/min/1.73 sqM) Glucose (74-99) mg/dL Plasma Lactic Acid Julio 3.1 H* (0.7-2.0) mmol/L Calcium (8.4-10.2) mg/dL Total Bilirubin (0.2-1.3) mg/dL AST (14-36) U/L ALT (4-34) U/L Alkaline Phosphatase (38-126) U/L Troponin I 0.022 (0.000-0.034) ng/mL Total Protein (6.3-8.2) g/dL Albumin (3.5-5.0) g/dL Lipase (23-300) U/L Urine Color Urine Appearance (Clear) Urine pH (5.0-8.0) Ur Specific Golden (1.001-1.035) Urine Protein (Negative) Urine Glucose (UA) (Negative) Urine Ketones (Negative) Urine Blood (Negative) Urine Nitrite (Negative) Urine Bilirubin (Negative) Urine Urobilinogen (<2.0) mg/dL Ur Leukocyte Esterase (Negative) Urine RBC (0-5) /hpf Urine WBC (0-5) /hpf Ur Squamous Epith Cells (0-4) /hpf Urine Bacteria (None) /hpf Hyaline Casts (0-2) /lpf Urine Mucus (None) /hpf - EKG Data -: EKG Interpreted by Me (and Dr. Beavers ) EKG Comments: Ventricular 117, QRS 90, QT/QTC 392 since 546. Atrial fibrillation with rapid ventricular response. Possible anterior infarct age indeterminate. No concern for acute ischemia at this time. Disposition Clinical Impression: Pancreatitis, Atrial fibrillation Disposition: ADMITTED IP TO THIS HOSP Condition: Serious Is patient prescribed a controlled substance at d/c from ED?: No Referrals: Sandeep Rivers MD [Primary Care Provider] - 1-2 days
[2020-07-19] MEDS ORDERED: THIAMINE 100 MG/ML 2 ML VIAL IM ONE (03:30)
[2020-07-19] MEDS: atenoloL 50 MG TAB PO SCH (08:36)
[2020-07-19] MEDS: HYDROmorphone 0.5 MG/0.5 ML SYRINGE IVP PRN ×2 (08:37→19:01)
--- NOTE | 2020-07-19 11:07 | P.GSCN ---
History of Present Illness Consult date: 07/19/20 Reason for Consult: Pancreatitis History of present illness: This is a 69-year-old female who was admitted through the emergency room complaints of abdominal pain. Patient admits to drinking 2-4 drinks per day. Patient was admitted for pancreas tenderness. She states she's had epigastric pain. Past Medical History Past Medical History: Cancer, Hyperlipidemia, Hypertension Additional Past Medical History / Comment(s): right breast History of Any Multi-Drug Resistant Organisms: None Reported Past Surgical History: Breast Surgery, Cholecystectomy, Joint Replacement Additional Past Surgical History / Comment(s): ectopic , knee, neck for tumor removal Past Psychological History: Anxiety Smoking Status: Current every day smoker Past Alcohol Use History: Occasional Past Drug Use History: None Reported Medications and Allergies Home Medications Medication Instructions Recorded Confirmed Type Aspirin EC [Ecotrin Low Dose] 81 mg PO DAILY 08/30/18 07/19/20 History Citalopram Hydrobromide [CeleXA] 20 mg PO DAILY 08/30/18 07/19/20 History Letrozole [Femara] 2.5 mg PO DAILY 08/30/18 07/19/20 History Loratadine [Claritin] 10 mg PO DAILY 08/30/18 07/19/20 History atenoloL [Atenolol] 100 mg PO DAILY 08/30/18 07/19/20 History Naproxen 500 mg PO DAILY 07/19/20 07/19/20 History cloNIDine HCL [Catapres] 0.2 mg PO BID 07/19/20 07/19/20 History Allergies Allergy/AdvReac Type Severity Reaction Status Date / Time adhesive tape Allergy Rash/Hives Verified 07/19/20 09:06 Surgical - Exam Vital Signs Temp Pulse Resp BP Pulse Ox 98 F 84 18 208/113 96 07/19/20 00:22 07/19/20 00:22 07/19/20 00:22 07/19/20 00:22 07/19/20 00:22 - General well developed, well nourished - Eyes PERRL - ENT normal pinna - Neck no masses - Respiratory normal expansion - Cardiovascular Rhythm: regular - Abdomen Mild epigastric tenderness Abdomen: soft Results - Labs 07/19/20 01:15 07/19/20 01:15 Abnormal Lab Results - Last 24 Hours (Table) 07/19/20 07/19/20 07/19/20 Range/Units 01:15 01:15 01:15 WBC 14.9 H (3.8-10.6) k/uL MCV 111.7 H (80.0-100.0) fL MCH 36.8 H (25.0-35.0) pg Neutrophils # 13.9 H (1.3-7.7) k/uL Lymphocytes # 0.3 L (1.0-4.8) k/uL Macrocytosis Marked A Sodium 133 L (137-145) mmol/L Potassium 3.4 L (3.5-5.1) mmol/L Carbon Dioxide 18 L (22-30) mmol/L Glucose 135 H (74-99) mg/dL Plasma Lactic Acid Julio (0.7-2.0) mmol/L Total Bilirubin 1.4 H (0.2-1.3) mg/dL AST 69 H (14-36) U/L Alkaline Phosphatase 316 H (38-126) U/L Total Protein 6.0 L (6.3-8.2) g/dL Albumin 2.8 L (3.5-5.0) g/dL Lipase 3173 H (23-300) U/L Urine Protein 2+ H (Negative) Urine Blood Small H (Negative) Urine Bacteria Rare H (None) /hpf Urine Mucus Rare H (None) /hpf 07/19/20 Range/Units 01:31 WBC (3.8-10.6) k/uL MCV (80.0-100.0) fL MCH (25.0-35.0) pg Neutrophils # (1.3-7.7) k/uL Lymphocytes # (1.0-4.8) k/uL Macrocytosis Sodium (137-145) mmol/L Potassium (3.5-5.1) mmol/L Carbon Dioxide (22-30) mmol/L Glucose (74-99) mg/dL Plasma Lactic Acid Julio 3.1 H* (0.7-2.0) mmol/L Total Bilirubin (0.2-1.3) mg/dL AST (14-36) U/L Alkaline Phosphatase (38-126) U/L Total Protein (6.3-8.2) g/dL Albumin (3.5-5.0) g/dL Lipase (23-300) U/L Urine Protein (Negative) Urine Blood (Negative) Urine Bacteria (None) /hpf Urine Mucus (None) /hpf Diabetes panel 07/19/20 Range/Units 01:15 Sodium 133 L (137-145) mmol/L Potassium 3.4 L (3.5-5.1) mmol/L Chloride 102 (98-107) mmol/L Carbon Dioxide 18 L (22-30) mmol/L BUN 14 (7-17) mg/dL Creatinine 0.94 (0.52-1.04) mg/dL Glucose 135 H (74-99) mg/dL Calcium 8.6 (8.4-10.2) mg/dL AST 69 H (14-36) U/L ALT 25 (4-34) U/L Alkaline Phosphatase 316 H (38-126) U/L Total Protein 6.0 L (6.3-8.2) g/dL Albumin 2.8 L (3.5-5.0) g/dL Thyroid panel 07/19/20 Range/Units 07:37 TSH 3.780 (0.465-4.680) mIU/L Calcium panel 07/19/20 Range/Units 01:15 Calcium 8.6 (8.4-10.2) mg/dL Albumin 2.8 L (3.5-5.0) g/dL Pituitary panel 07/19/20 07/19/20 Range/Units 01:15 07:37 Sodium 133 L (137-145) mmol/L Potassium 3.4 L (3.5-5.1) mmol/L Chloride 102 (98-107) mmol/L Carbon Dioxide 18 L (22-30) mmol/L BUN 14 (7-17) mg/dL Creatinine 0.94 (0.52-1.04) mg/dL Glucose 135 H (74-99) mg/dL Calcium 8.6 (8.4-10.2) mg/dL TSH 3.780 (0.465-4.680) mIU/L Adrenal panel 07/19/20 Range/Units 01:15 Sodium 133 L (137-145) mmol/L Potassium 3.4 L (3.5-5.1) mmol/L Chloride 102 (98-107) mmol/L Carbon Dioxide 18 L (22-30) mmol/L BUN 14 (7-17) mg/dL Creatinine 0.94 (0.52-1.04) mg/dL Glucose 135 H (74-99) mg/dL Calcium 8.6 (8.4-10.2) mg/dL Total Bilirubin 1.4 H (0.2-1.3) mg/dL AST 69 H (14-36) U/L ALT 25 (4-34) U/L Alkaline Phosphatase 316 H (38-126) U/L Total Protein 6.0 L (6.3-8.2) g/dL Albumin 2.8 L (3.5-5.0) g/dL - Imaging Additional studies: Computed tomography scan the abdomen shows a masslike density at the tail of pancreas and gastric fundus this could be related to complex fluid collection. A shunt was areas of gastric wall and small and large bowel wall thickening which could be due to inflammatory process. Assessment and Plan Assessment: Pancreatitis. Patient received fluid hydration. We will plan for EGD.
[2020-07-19] MEDS ORDERED: HEPARIN SODIUM,PORCINE 5,000 UNIT/ML 1 ML VIAL IV ONE (11:51)
--- NOTE | 2020-07-19 12:01 | P.CRDCN ---
History of Present Illness Consult date: 07/19/20 History of present illness: CHIEF COMPLAINT: afib HISTORY OF PRESENT ILLNESS: This is a 69-year old female with a past medical history significant for breast cancer and hypertension. Patient does not follow in the office with the engineering consultant. We have been asked to see the patient in consultation for atrial fibrillation. Patient examined this morning at the bedside in the emergency room. Patient states she has been having left-sided abdominal pain for approximately 5 days. She denies chest pain or pressure. She denies short of breath. She is a smoker and smokes about 1 pack per day. She reports daily alcohol use and states she has a few cocktails every night. DIAGNOSTICS: EKG reveals atrial fibrillation with RVR. Heart rate 117. CT abdomen and pelvis: Stranding and fluid in abdomen. Possible pancreatitis. Masslike density inseparable from the pancreatic tail, gastric fundus, and left adrenal gland. Differential considerations include mass, adenopathy, hematoma or complex fluid collection. Small bilateral pleural effusions with bibasilar atelectasis and/or infiltrates. Laboratory data: WBC 14.9. Hemoglobin 14.7. Platelet count 191. Sodium 133. Potassium 3.4. BUN 14. Creatinine 0.94. Lactic acid 3.1. Repeat 1.6. Current home cardiac medications include aspirin 81 mg daily, atenolol 100 mg daily, and Catapres 0.2 mg twice a day REVIEW OF SYSTEMS: At the time of my exam: CONSTITUTIONAL: Denies fever or chills. HEENT: Denies blurred vision, vision changes, or eye pain. Denies hemoptysis CARDIOVASCULAR: Denies chest pain, orthopnea, PND or palpitations RESPIRATORY: No shortness of breath. GASTROINTESTINAL: Reports abdominal pain. Denies nausea or vomiting. HEMATOLOGIC: Denies bleeding disorders. GENITOURINARY: Denies any blood in urine. SKIN: Denies pruitis. Denies rash. PHYSICAL EXAM: VITAL SIGNS: Reviewed. GENERAL: Well-developed in no acute distress. HEENT: Head is normocephalic. Pupils are equal, round. Sclerae anicteric. Mucous membranes of the mouth are moist. Neck supple. No JVD or thyromegaly LUNGS: Respirations even and unlabored. Lungs essentially clear to auscultation bilaterally. HEART: Regular rate and rhythm. S1 and S2 heard. ABDOMEN: Soft. Nondistended. Mild tenderness. EXTREMITIES: Normal range of motion. No clubbing or cyanosis. Peripheral pulses intact. No lower extremity edema NEUROLOGIC: Awake and alert. Oriented x 3. ASSESSMENT: Acute pancreatitis New-onset atrial fibrillation with RVR, currently maintaining sinus mechanism Hypertension History of breast cancer Nicotine dependence, patient smokes 1 pack per day Daily alcohol use PLAN: Resume home medications: Atenolol and Catapres Add lisinopril 5 mg daily for optimal blood pressure control Check TSH Obtain 2-D echo to assess cardiac structure and function Case discussed with Dr. Massey who is agreeable to IV heparin from a surgical standpoint Further recommendations pending patient course Nurse practitioner note has been reviewed by physician. Signing provider agrees with the documented findings, assessment, and plan of care. Past Medical History Past Medical History: Cancer, Hyperlipidemia, Hypertension Additional Past Medical History / Comment(s): right breast History of Any Multi-Drug Resistant Organisms: None Reported Past Surgical History: Breast Surgery, Cholecystectomy, Joint Replacement Additional Past Surgical History / Comment(s): ectopic , knee, neck for tumor removal Past Psychological History: Anxiety Smoking Status: Current every day smoker Past Alcohol Use History: Occasional Past Drug Use History: None Reported Medications and Allergies Home Medications Medication Instructions Recorded Confirmed Type Aspirin EC [Ecotrin Low Dose] 81 mg PO DAILY 08/30/18 07/19/20 History Citalopram Hydrobromide [CeleXA] 20 mg PO DAILY 08/30/18 07/19/20 History Letrozole [Femara] 2.5 mg PO DAILY 08/30/18 07/19/20 History Loratadine [Claritin] 10 mg PO DAILY 08/30/18 07/19/20 History atenoloL [Atenolol] 100 mg PO DAILY 08/30/18 07/19/20 History Naproxen 500 mg PO DAILY 07/19/20 07/19/20 History cloNIDine HCL [Catapres] 0.2 mg PO BID 07/19/20 07/19/20 History Allergies Allergy/AdvReac Type Severity Reaction Status Date / Time adhesive tape Allergy Rash/Hives Verified 07/19/20 09:06 Physical Exam Vitals: Vital Signs Temp Pulse Resp BP Pulse Ox 07/19/20 09:25 73 148/96 07/19/20 06:00 98.4 F 88 16 182/93 98 07/19/20 05:16 84 17 153/84 99 07/19/20 02:15 105 H 20 165/80 96 07/19/20 01:42 105 H 20 140/80 96 07/19/20 00:22 98 F 84 18 208/113 96 Intake and Output 07/18/20 07/19/20 07/19/20 22:59 06:59 14:59 Other: Weight 54.431 kg Results 07/19/20 01:15 07/19/20 01:15 Cardiac Enzymes 07/19/20 07/19/20 Range/Units 01:15 01:15 AST 69 H (14-36) U/L Troponin I 0.022 (0.000-0.034) ng/mL Coagulation 07/19/20 Range/Units 01:15 PT 11.0 (9.0-12.0) sec APTT 25.0 (22.0-30.0) sec CBC 07/19/20 Range/Units 01:15 WBC 14.9 H (3.8-10.6) k/uL RBC 4.00 (3.80-5.40) m/uL Hgb 14.7 (11.4-16.0) gm/dL Hct 44.7 (34.0-46.0) % Plt Count 191 (150-450) k/uL Comprehensive Metabolic Panel 07/19/20 Range/Units 01:15 Sodium 133 L (137-145) mmol/L Potassium 3.4 L (3.5-5.1) mmol/L Chloride 102 (98-107) mmol/L Carbon Dioxide 18 L (22-30) mmol/L BUN 14 (7-17) mg/dL Creatinine 0.94 (0.52-1.04) mg/dL Glucose 135 H (74-99) mg/dL Calcium 8.6 (8.4-10.2) mg/dL AST 69 H (14-36) U/L ALT 25 (4-34) U/L Alkaline Phosphatase 316 H (38-126) U/L Total Protein 6.0 L (6.3-8.2) g/dL Albumin 2.8 L (3.5-5.0) g/dL Current Medications Generic Name Dose Route Start Last Admin Trade Name Freq PRN Reason Stop Dose Admin Atenolol 100 mg 07/19/20 09:00 07/19/20 08:36 Atenolol 50 Mg Tab PO 100 mg DAILY JOEY Administration Clonidine 0.2 mg 07/19/20 11:15 Clonidine Hcl 0.2 Mg Tab PO BID JOEY Heparin Sodium (Porcine) 3,265.86 unit 07/19/20 11:51 Heparin Sodium,Porcine 5,000 Unit/Ml 1 Ml Vial 60 unit/kg (3265.86 unit) 07/19/20 11:52 IV ONCE ONE Heparin Sodium (Porcine) 0 unit 07/19/20 11:51 Heparin Sodium,Porcine 5,000 Unit/Ml 1 Ml Vial IV PER PROTOCOL PRN Low PTT Protocol Hydromorphone HCl 0.5 mg 07/19/20 03:20 07/19/20 08:37 Hydromorphone 0.5 Mg/0.5 Ml Syringe IVP 0.5 mg Q6HR PRN Administration Moderate Pain Sodium Chloride 1,000 mls @ 130 mls/hr 07/19/20 02:15 07/19/20 02:36 Saline 0.9% IV 130 mls/hr .[id number] JOEY Administration Piperacillin Sod/Tazobactam 100 mls @ 25 mls/hr 07/19/20 12:00 Sod 3.375 gm/ Sodium Chloride IVPB Q8H JOEY Heparin Sodium/Sodium Chloride 250 mls @ 6.532 mls/hr 07/19/20 12:00 25,000 unit/ Sodium Chloride IV .Q24H [facility] Protocol 12 UNITS/KG/HR Lisinopril 5 mg 07/19/20 11:15 Lisinopril 5 Mg Tab PO DAILY [facility] Lorazepam 1 mg 07/19/20 03:15 Lorazepam 2 Mg/Ml Inj IV Q2HR PRN CIWA 8 or 9 Lorazepam 1 mg 07/19/20 03:15 Lorazepam 2 Mg/Ml Inj IV Q1HR PRN CIWA 10 to 15 Lorazepam 2 mg 07/19/20 03:15 Lorazepam 2 Mg/Ml Inj IV 07/21/20 03:15 Q10M PRN CIWA 16 or higher Naloxone HCl 0.2 mg 07/19/20 03:20 Naloxone 0.4 Mg/Ml 1 Ml Vial IV Q2M PRN Opioid Reversal Thiamine HCl 100 mg 07/19/20 17:30 Thiamine 100 Mg Tab PO BID-W/MEALS JOEY Intake and Output 07/18/20 07/19/20 07/19/20 22:59 06:59 14:59 Other: Weight 54.431 kg 07/19/20 01:15 07/19/20 01:15
[2020-07-19] MEDS: cloNIDine HCL 0.2 MG TAB PO SCH ×2 (12:17→21:34)
[2020-07-19] MEDS: lisinopriL 5 MG TAB PO SCH (12:17)
[2020-07-19] MEDS: PIPERACILLIN-TAZOBACTAM 3.375 GM in SODIUM CHLORIDE 0.9% 100 ML IVPB SCH ×2 (12:18→21:33)
[2020-07-19] MEDS: PANTOPRAZOLE 40 MG/10 ML VIAL IVP SCH (12:21)
[2020-07-19] MEDS: HEPARIN SOD,PORK IN 0.45% NACL 25,000 UNIT in 0.45% NACL 1 250ML.BAG IV SCH (12:26)
[2020-07-19 12:40] LABS: Basophils % (A) 0 %; Eosinophils % (A) 0 %; HCT 44.5 % (34.0-46.0); HGB 13.5 gm/dL (11.4-16.0); Hypochromasia Slight; Lymphocytes # (A) 0.5 k/uL (1.0-4.8); Lymphocytes % (A) 4 %; MCH 35.6 pg (25.0-35.0); MCHC 30.4 g/dL (31.0-37.0); Macrocytosis Marked; Mean Platelet Volume 10.5; Monocytes # (A) 0.7 k/uL (0-1.0); Monocytes % (A) 5 %; Neutrophils # (A) 11.5 k/uL (1.3-7.7); Neutrophils % (A) 90 %; Platelet Count 174 k/uL (150-450); RDW 15.3 % (11.5-15.5); WBC 12.8 k/uL (3.8-10.6)
[2020-07-19 13:10] LABS: Partial Thromboplastin Time 24.9 sec (22.0-30.0); Prothrombin Time 10.5 sec (9.0-12.0)
[2020-07-19 13:32] LABS: MCV 117.2 fL (80.0-100.0)
--- NOTE | 2020-07-19 13:42 | P.HPIM ---
History of Present Illness This is a pleasant 69 years old female with multiple medical problems as below. She is a patient of Dr. Rivers. She presents because of one-day history of upper abdominal pain, she had this pain for 1 week as mild but More severe yesterday so she decided to come to the hospital, her pain is in the epigastric and left upper quadrant going to the back. Prep like 8/10 in severity when she came in, resolved significantly with Dilaudid. [place] like sharp associated with loose bowel movement and vomited 3 times. She smokes about 1 pack per day, she was counseled and she agrees to quit and she agrees to the nicotine patch She drinks about 2 cups of coffee feels each night. She denies illicit drugs Vitas looks stable however blood pressure on the high side 182/93 On admission Showing leukocytosis of 14.9 K, rest of CBC is unremarkable. BMP shows sodium 133, potassium 3.4, creatinine is within the reference range of 0.9 with GFR of 7. Her lactic acid came back to normal. Urine analysis is no suspicious of infection Elevated lipase at 3173 CT of the abdomen and pelvis: Pancreatitis, Masslike density inseparable to the pancreatic tail, 9 cm right kidney lesion, gastric and areas of small and large bowel thickening correlates clinically regarding inflammatory/infectious process. EKG showed atrial fibrillation with RVR at 117 In the emergency room patient was started on Dilaudid, IV fluid with normal saline at 130 mL/h, and Zosyn. Also started on heparin drip, Started on Ativan as needed same GI, surgery and cartilage team were consulted Review of Systems CONSTITUTIONAL: No fever, no malaise, no fatigue. HEENT: No recent visual problems or hearing problems. Denied any sore throat. CARDIOVASCULAR: No orthopnea, PND, no palpitations, no syncope. PULMONARY: No shortness of breath, no cough, no hemoptysis. GASTROINTESTINAL: No diarrhea, no nausea, no vomiting, no abdominal pain. Normoactive bowel sounds. NEUROLOGICAL: No headaches, no weakness, no numbness. HEMATOLOGICAL: Denies any bleeding or petechiae. GENITOURINARY: Denies any burning micturition, frequency, or urgency. MUSCULOSKELETAL/RHEUMATOLOGICAL: Denies any joint pain, swelling, or any muscle pain. ENDOCRINE: Denies any polyuria or polydipsia. Past Medical History Past Medical History: Cancer, Hyperlipidemia, Hypertension Additional Past Medical History / Comment(s): right breast History of Any Multi-Drug Resistant Organisms: None Reported Past Surgical History: Breast Surgery, Cholecystectomy, Joint Replacement Additional Past Surgical History / Comment(s): ectopic , knee, neck for tumor removal Past Psychological History: Anxiety Smoking Status: Current every day smoker Past Alcohol Use History: Occasional Past Drug Use History: None Reported Medications and Allergies Home Medications Medication Instructions Recorded Confirmed Type Aspirin EC [Ecotrin Low Dose] 81 mg PO DAILY 08/30/18 07/19/20 History Citalopram Hydrobromide [CeleXA] 20 mg PO DAILY 08/30/18 07/19/20 History Letrozole [Femara] 2.5 mg PO DAILY 08/30/18 07/19/20 History Loratadine [Claritin] 10 mg PO DAILY 08/30/18 07/19/20 History atenoloL [Atenolol] 100 mg PO DAILY 08/30/18 07/19/20 History Naproxen 500 mg PO DAILY 07/19/20 07/19/20 History cloNIDine HCL [Catapres] 0.2 mg PO BID 07/19/20 07/19/20 History Allergies Allergy/AdvReac Type Severity Reaction Status Date / Time adhesive tape Allergy Rash/Hives Verified 07/19/20 09:06 Physical Exam Vitals: Vital Signs Temp Pulse Resp BP Pulse Ox 07/19/20 09:25 73 148/96 07/19/20 06:00 98.4 F 88 16 182/93 98 07/19/20 05:16 84 17 153/84 99 07/19/20 02:15 105 H 20 165/80 96 07/19/20 01:42 105 H 20 140/80 96 07/19/20 00:22 98 F 84 18 208/113 96 Intake and Output 07/18/20 07/19/20 07/19/20 22:59 06:59 14:59 Other: Weight 54.431 kg GENERAL: The patient is alert and oriented x3, not in any acute distress. Well developed, well nourished. HEENT: Pupils are round and equally reacting to light. EOMI. No scleral icterus. No conjunctival pallor. Normocephalic, atraumatic. No pharyngeal erythema. No thyromegaly. CARDIOVASCULAR: S1 and S2 present. No murmurs, rubs, or gallops. PULMONARY: Chest is clear to auscultation, no wheezing or crackles. ABDOMEN: Soft, mild epigastric tenderness with no rebound tenderness, nondistended, normoactive bowel sounds. No palpable organomegaly. MUSCULOSKELETAL: No joint swelling or deformity. EXTREMITIES: No cyanosis, clubbing, or pedal edema. NEUROLOGICAL: Gross neurological examination did not reveal any focal deficits. SKIN: No rashes. No petechiae Results CBC & Chem 7: 07/19/20 07:37 07/19/20 01:15 Labs: Abnormal Lab Results - Last 24 Hours (Table) 07/19/20 07/19/20 07/19/20 Range/Units 01:15 01:15 01:15 WBC 14.9 H (3.8-10.6) k/uL MCV 111.7 H (80.0-100.0) fL MCH 36.8 H (25.0-35.0) pg Neutrophils # 13.9 H (1.3-7.7) k/uL Lymphocytes # 0.3 L (1.0-4.8) k/uL Macrocytosis Marked A Sodium 133 L (137-145) mmol/L Potassium 3.4 L (3.5-5.1) mmol/L Carbon Dioxide 18 L (22-30) mmol/L Glucose 135 H (74-99) mg/dL Plasma Lactic Acid Julio (0.7-2.0) mmol/L Total Bilirubin 1.4 H (0.2-1.3) mg/dL AST 69 H (14-36) U/L Alkaline Phosphatase 316 H (38-126) U/L Total Protein 6.0 L (6.3-8.2) g/dL Albumin 2.8 L (3.5-5.0) g/dL Lipase 3173 H (23-300) U/L Urine Protein 2+ H (Negative) Urine Blood Small H (Negative) Urine Bacteria Rare H (None) /hpf Urine Mucus Rare H (None) /hpf 07/19/20 Range/Units 01:31 WBC (3.8-10.6) k/uL MCV (80.0-100.0) fL MCH (25.0-35.0) pg Neutrophils # (1.3-7.7) k/uL Lymphocytes # (1.0-4.8) k/uL Macrocytosis Sodium (137-145) mmol/L Potassium (3.5-5.1) mmol/L Carbon Dioxide (22-30) mmol/L Glucose (74-99) mg/dL Plasma Lactic Acid Julio 3.1 H* (0.7-2.0) mmol/L Total Bilirubin (0.2-1.3) mg/dL AST (14-36) U/L Alkaline Phosphatase (38-126) U/L Total Protein (6.3-8.2) g/dL Albumin (3.5-5.0) g/dL Lipase (23-300) U/L Urine Protein (Negative) Urine Blood (Negative) Urine Bacteria (None) /hpf Urine Mucus (None) /hpf Assessment and Plan Assessment: -Acute pancreatitis with CAT scan showing Masslike density inseparable to the pa ncreatic tail, could be also related to alcohol pancreatitis, continue with pain medication, IV fluids and bowel rest/resume. Patient was started on Zosyn empirically. Check pro-calcitonin, if negative of low we may consider stopping antibiotic -Masslike density inseparable to the pancreatic tail, surgical team were consulted and recommended EGD. -9 cm right kidney lesion, Suggest neoplasm as per radiologist, we will consult urology -Alcohol abuse, continue with CIWA protocol with Ativan as needed and timing -Nicotine dependence, patient is counseled, nicotine patch is offered -Atrial fibrillation with RVR, present on admission. Check echocardiogram. Cardiology on the case. Patient was started on heparin drip. Patient is currently on atenolol and clonidine -History of breast Cancer, bone scan from 10/22/2019 showing no evidence of bone metastasis -Hypertension, uncontrolled -Hyperlipidemia -Anxiety, no connective tissue DVT prophylaxis: Heparin GI prophylaxis: Protonix Prognosis is guarded
[2020-07-19] MEDS: LETROZOLE 2.5 MG TAB PO SCH (13:51)
--- NOTE | 2020-07-19 15:31 | P.CONS ---
History of Present Illness - Reason for Consult Consult date: 07/19/20 Abdominal pain, pancreatitis Requesting physician: Constantino E Sheet - Chief Complaint Abdominal pain - History of Present Illness 69-year-old female with a medical history significant for breast cancer, hypertension and hyperlipidemia who presented to the hospital due to abdominal pain. The patient reports developing severe epigastric abdominal pain. She states that this was like a terrible aching feeling in her abdomen predominantly in the epigastric region but also on the left side. She had 3-4 episodes of nonbloody vomiting in association with the episode. She denies any signs or symptoms of GI bleeding. She reports a 20 year history of at least 3 alcoholic beverages daily. She is status post cholecystectomy in the past. Computed tomography scan of the abdomen was performed and consistent with pancreatitis with a possible mass in the pancreatic tail. Labs on presentation significant for total bilirubin 1.4, alkaline phosphatase 316, AST 69, ALT 25, platelet count 191,000 with a lipase of 3173. She does report that her daughter also has been hospitalized in the past for pancreatitis. Review of Systems REVIEW OF SYSTEMS: CONSTITUTIONAL: Denies any fevers, chills, weight change or fatigue. CARDIOVASCULAR: Denies any chest pain, palpitations high or low blood pressures RESPIRATORY: Denies any shortness of breath, hemoptysis or cough. GENITOURINARY: No dysuria or hematuria. MUSCULOSKELETAL: No weakness reported. SKIN: Denies any new rashes or lesions, jaundice or pallor. PSYCHIATRIC: Denies any depression or anxiety. NEUROLOGY: Denies headache, denies any new focal deficits. EARS/NOSE/THROAT: No recent hearing change, congestion, nasal discharge or sore throat. EYES: No pain in eyes, discharge or change in vision. GASTROINTESTINAL: As per HPI. Past Medical History Past Medical History: Cancer, Hyperlipidemia, Hypertension Additional Past Medical History / Comment(s): right breast History of Any Multi-Drug Resistant Organisms: None Reported Past Surgical History: Breast Surgery, Cholecystectomy, Joint Replacement Additional Past Surgical History / Comment(s): ectopic , knee, neck for tumor removal Past Psychological History: Anxiety Smoking Status: Current every day smoker Past Alcohol Use History: Occasional Past Drug Use History: None Reported Additional History: Family history: Patient does report a family history of pancreatitis and her daughter. Medications and Allergies Home Medications Medication Instructions Recorded Confirmed Type Aspirin EC [Ecotrin Low Dose] 81 mg PO DAILY 08/30/18 07/19/20 History Citalopram Hydrobromide [CeleXA] 20 mg PO DAILY 08/30/18 07/19/20 History Letrozole [Femara] 2.5 mg PO DAILY 08/30/18 07/19/20 History Loratadine [Claritin] 10 mg PO DAILY 08/30/18 07/19/20 History atenoloL [Atenolol] 100 mg PO DAILY 08/30/18 07/19/20 History Naproxen 500 mg PO DAILY 07/19/20 07/19/20 History cloNIDine HCL [Catapres] 0.2 mg PO BID 07/19/20 07/19/20 History Allergies Allergy/AdvReac Type Severity Reaction Status Date / Time adhesive tape Allergy Rash/Hives Verified 07/19/20 09:06 Physical Exam Vitals: Vital Signs Temp Pulse Resp BP Pulse Ox 07/19/20 09:25 73 148/96 07/19/20 06:00 98.4 F 88 16 182/93 98 07/19/20 05:16 84 17 153/84 99 07/19/20 02:15 105 H 20 165/80 96 07/19/20 01:42 105 H 20 140/80 96 07/19/20 00:22 98 F 84 18 208/113 96 Intake and Output 07/18/20 07/19/20 07/19/20 22:59 06:59 14:59 Other: Weight 54.431 kg On physical examination, patient appears comfortable in no apparent distress. HEAD: Normocephalic, atraumatic. EYES: No scleral icterus. No conjunctival injection. MOUTH: No lesions, tongue midline. NECK: Trachea midline, no gross abnormalities. CHEST: Clear to auscultation with no wheezing or rhonchi appreciated. HEART: S1, S2, irregularly irregular. ABDOMEN: Soft, obese, mildly tender to palpation. Bowel sounds are positive. No organomegaly. No guarding or rigidity. EXTREMITIES: No pedal edema. SKIN: No rashes, no jaundice. NEUROLOGIC: Alert and oriented x3. No focal deficits. Results CBC & Chem 7: 07/19/20 07:37 07/19/20 01:15 Labs: Abnormal Lab Results - Last 24 Hours (Table) 07/19/20 07/19/20 07/19/20 Range/Units 01:15 01:15 01:15 WBC 14.9 H (3.8-10.6) k/uL MCV 111.7 H (80.0-100.0) fL MCH 36.8 H (25.0-35.0) pg Neutrophils # 13.9 H (1.3-7.7) k/uL Lymphocytes # 0.3 L (1.0-4.8) k/uL Macrocytosis Marked A Sodium 133 L (137-145) mmol/L Potassium 3.4 L (3.5-5.1) mmol/L Carbon Dioxide 18 L (22-30) mmol/L Glucose 135 H (74-99) mg/dL Plasma Lactic Acid Julio (0.7-2.0) mmol/L Total Bilirubin 1.4 H (0.2-1.3) mg/dL AST 69 H (14-36) U/L Alkaline Phosphatase 316 H (38-126) U/L Total Protein 6.0 L (6.3-8.2) g/dL Albumin 2.8 L (3.5-5.0) g/dL Lipase 3173 H (23-300) U/L Urine Protein 2+ H (Negative) Urine Blood Small H (Negative) Urine Bacteria Rare H (None) /hpf Urine Mucus Rare H (None) /hpf 07/19/20 Range/Units 01:31 WBC (3.8-10.6) k/uL MCV (80.0-100.0) fL MCH (25.0-35.0) pg Neutrophils # (1.3-7.7) k/uL Lymphocytes # (1.0-4.8) k/uL Macrocytosis Sodium (137-145) mmol/L Potassium (3.5-5.1) mmol/L Carbon Dioxide (22-30) mmol/L Glucose (74-99) mg/dL Plasma Lactic Acid Julio 3.1 H* (0.7-2.0) mmol/L Total Bilirubin (0.2-1.3) mg/dL AST (14-36) U/L Alkaline Phosphatase (38-126) U/L Total Protein (6.3-8.2) g/dL Albumin (3.5-5.0) g/dL Lipase (23-300) U/L Urine Protein (Negative) Urine Blood (Negative) Urine Bacteria (None) /hpf Urine Mucus (None) /hpf CT scan - abdomen: report reviewed (Computed tomography scan of the abdomen with findings of pancreatitis and a pancreatic mass/cyst.) Assessment and Plan (1) Pancreatitis Narrative/Plan: 69-year-old female with multiple medical comorbidities presented to the hospital with complaints of abdominal pain and was found to have elevation in lipase at [address] showing stranding consistent with pancreatitis. Currently pain is somewhat improved and she is tolerating diet. She does report daily alcohol use for the past 20 years approximately 3 cocktails daily. She did have some nausea and vomiting with her symptoms. Currently she is being admitted and treated for acute pancreatitis. CT also showed a possible fluid collection, hematoma or mass in the area of the pancreatic tail, gastric fundus and left adrenal. Current Visit: Yes Status: Acute Code(s): K85.90 - ACUTE PANCREATITIS WITHOUT NECROSIS OR INFECTION, UNSP SNOMED Code(s): 57408696 (2) Abnormal CT of the abdomen Narrative/Plan: Computed tomography scan with findings of a masslike area in the pancreatic tail, gastric fundus and left adrenal with differential including hematoma, fluid collection or solid mass. Current Visit: Yes Status: Acute Code(s): R93.5 - ABN FINDINGS ON DX IMAGING OF ABD REGIONS, INC RETROPERITON SNOMED Code(s): 33813098137194634 Plan: Supportive care Okay for diet as tolerated Continue pain control Continue IV fluid hydration Alcohol abstinence Continue to monitor and treat for signs and symptoms of alcohol withdrawal Tumor markers will be ordered Would recommend MRI of the abdomen for further characterization of finding of masslike density in the area of the pancreatic tail, fundus and left adrenal Thank you for allowing us to participate in the care of the patient we will continue to follow
[2020-07-19] MEDS: THIAMINE 100 MG TAB PO SCH (18:42)
[2020-07-19] MEDS: HEPARIN SODIUM,PORCINE 5,000 UNIT/ML 1 ML VIAL IV PRN (23:27)
[2020-07-20] MEDS: SODIUM CHLORIDE 0.9% 1,000 ML IV SCH ×3 (04:39→21:00)
[2020-07-20] MEDS: PIPERACILLIN-TAZOBACTAM 3.375 GM in SODIUM CHLORIDE 0.9% 100 ML IVPB SCH ×3 (04:40→20:35)
[2020-07-20] MEDS: THIAMINE 100 MG TAB PO SCH ×2 (06:35→22:49)
[2020-07-20 06:56] LABS: Calcium 7.9 mg/dL (8.4-10.2); Potassium 3.9 mmol/L (3.5-5.1)
[2020-07-20 07:19] LABS: Basophils % (A) 0 %; Eosinophils % (A) 0 %; HCT 36.9 % (34.0-46.0); HGB 11.6 gm/dL (11.4-16.0); Hypochromasia Slight; Lymphocytes # (A) 0.7 k/uL (1.0-4.8); Lymphocytes % (A) 11 %; MCH 36.3 pg (25.0-35.0); MCHC 31.4 g/dL (31.0-37.0); MCV 115.6 fL (80.0-100.0); Macrocytosis Marked; Mean Platelet Volume 8.9; Monocytes # (A) 0.4 k/uL (0-1.0); Monocytes % (A) 6 %; Neutrophils # (A) 5.1 k/uL (1.3-7.7); Neutrophils % (A) 81 %; Platelet Count 115 k/uL (150-450); RDW 14.6 % (11.5-15.5); WBC 6.3 k/uL (3.8-10.6)
[2020-07-20] MEDS: LETROZOLE 2.5 MG TAB PO SCH (09:21)
[2020-07-20] MEDS: cloNIDine HCL 0.2 MG TAB PO SCH ×2 (09:21→20:35)
[2020-07-20] MEDS: atenoloL 50 MG TAB PO SCH (09:21)
[2020-07-20] MEDS: lisinopriL 5 MG TAB PO SCH (09:21)
[2020-07-20] MEDS: PANTOPRAZOLE 40 MG/10 ML VIAL IVP SCH (09:22)
[2020-07-20] MEDS: HYDROmorphone 0.5 MG/0.5 ML SYRINGE IVP PRN ×2 (09:40→19:55)
--- NOTE | 2020-07-20 10:27 | P.GSCN ---
History of Present Illness Consult date: 07/20/20 History of present illness: 69-year-old female in the hospital with abdominal pain. It appears to be due to pancreatitis or a pancreatic tail mass of. The patient has a known history of breast cancer in 2004 with significant recurrence in 2011. On the CAT scan identified a 2.9 cm right lower pole kidney mass worrisome for malignancy. We are asked see the patient. She denies any urologic problems. There's been no hematuria dysuria flank pain. There is no previous urologic procedures. She had a CAT scan in 2018 that suggested this mass but the CAT scan was about diet. She is unaware of this. Her last bone scan done for her metastatic breast cancer was negative. She is cared for by Dr. Bennett. Review of Systems All systems: negative Past Medical History Past Medical History: Cancer, Hyperlipidemia, Hypertension Additional Past Medical History / Comment(s): right breast History of Any Multi-Drug Resistant Organisms: None Reported Past Surgical History: Breast Surgery, Cholecystectomy, Joint Replacement Additional Past Surgical History / Comment(s): ectopic , knee, neck for tumor removal Past Psychological History: Anxiety Smoking Status: Current every day smoker Past Alcohol Use History: Occasional Past Drug Use History: None Reported - Past Family History Father Family Medical History: Coronary Artery Disease (CAD), Liver Disease Mother Family Medical History: Coronary Artery Disease (CAD) Medications and Allergies Home Medications Medication Instructions Recorded Confirmed Type Aspirin EC [Ecotrin Low Dose] 81 mg PO DAILY 08/30/18 07/20/20 History Citalopram Hydrobromide [CeleXA] 20 mg PO DAILY 08/30/18 07/20/20 History Letrozole [Femara] 2.5 mg PO DAILY 08/30/18 07/20/20 History Loratadine [Claritin] 10 mg PO DAILY 08/30/18 07/20/20 History atenoloL [Atenolol] 100 mg PO DAILY 08/30/18 07/20/20 History Naproxen 500 mg PO BID 07/19/20 07/20/20 History cloNIDine HCL [Catapres] 0.2 mg PO DAILY 07/19/20 07/20/20 History HYDROcodone/APAP 5-325MG [[place] 1 tab PO Q6H PRN 07/20/20 07/20/20 History 5-325] Allergies Allergy/AdvReac Type Severity Reaction Status Date / Time adhesive tape Allergy Rash/Hives Verified 07/19/20 09:06 Surgical - Exam Vital Signs Temp Pulse Resp BP Pulse Ox 98 F 84 18 208/113 96 07/19/20 00:22 07/19/20 00:22 07/19/20 00:22 07/19/20 00:22 07/19/20 00:22 - General well developed, well nourished, chronically ill - Eyes PERRL - ENT no hearing loss - Neck no masses - Respiratory normal expansion, normal respiratory effort - Cardiovascular Rhythm: regular - Abdomen Abdomen: soft, non tender - Integumentary no rash, no growths - Neurologic normal coordination, normal sensation - Musculoskeletal normal posture - Psychiatric oriented to time, oriented to person, oriented to place, speech is normal, memory intact Results - Labs 07/20/20 05:23 07/20/20 05:23 Abnormal Lab Results - Last 24 Hours (Table) 07/19/20 07/19/20 07/19/20 Range/Units 07:37 12:28 19:26 WBC 12.8 H (3.8-10.6) k/uL RBC (3.80-5.40) m/uL MCV 117.2 H D (80.0-100.0) fL MCH 35.6 H (25.0-35.0) pg MCHC 30.4 L (31.0-37.0) g/dL Plt Count (150-450) k/uL Neutrophils # 11.5 H (1.3-7.7) k/uL Lymphocytes # 0.5 L (1.0-4.8) k/uL Macrocytosis Marked A APTT 30.9 H (22.0-30.0) sec Sodium (137-145) mmol/L BUN (7-17) mg/dL Creatinine (0.52-1.04) mg/dL Glucose (74-99) mg/dL Calcium (8.4-10.2) mg/dL Procalcitonin 0.45 H (0.02-0.09) ng/mL 07/20/20 07/20/20 07/20/20 Range/Units 05:23 05:23 05:23 WBC (3.8-10.6) k/uL RBC 3.20 L (3.80-5.40) m/uL MCV 115.6 H (80.0-100.0) fL MCH 36.3 H (25.0-35.0) pg MCHC (31.0-37.0) g/dL Plt Count 115 L (150-450) k/uL Neutrophils # (1.3-7.7) k/uL Lymphocytes # 0.7 L (1.0-4.8) k/uL Macrocytosis Marked A APTT 110.5 H* (22.0-30.0) sec Sodium 135 L (137-145) mmol/L BUN 22 H (7-17) mg/dL Creatinine 1.19 H (0.52-1.04) mg/dL Glucose 72 L (74-99) mg/dL Calcium 7.9 L (8.4-10.2) mg/dL Procalcitonin (0.02-0.09) ng/mL Microbiology - Last 24 Hours (Table) 07/19/20 03:27 Blood Culture - Preliminary Blood No Growth after 24 hours Diabetes panel 07/20/20 Range/Units 05:23 Sodium 135 L (137-145) mmol/L Potassium 3.9 (3.5-5.1) mmol/L Chloride 106 (98-107) mmol/L Carbon Dioxide 25 (22-30) mmol/L BUN 22 H (7-17) mg/dL Creatinine 1.19 H (0.52-1.04) mg/dL Glucose 72 L (74-99) mg/dL Calcium 7.9 L (8.4-10.2) mg/dL Calcium panel 07/20/20 Range/Units 05:23 Calcium 7.9 L (8.4-10.2) mg/dL Pituitary panel 07/20/20 Range/Units 05:23 Sodium 135 L (137-145) mmol/L Potassium 3.9 (3.5-5.1) mmol/L Chloride 106 (98-107) mmol/L Carbon Dioxide 25 (22-30) mmol/L BUN 22 H (7-17) mg/dL Creatinine 1.19 H (0.52-1.04) mg/dL Glucose 72 L (74-99) mg/dL Calcium 7.9 L (8.4-10.2) mg/dL Adrenal panel 11/27/20 Range/Units 05:23 Sodium 135 L (137-145) mmol/L Potassium 3.9 (3.5-5.1) mmol/L Chloride 106 (98-107) mmol/L Carbon Dioxide 25 (22-30) mmol/L BUN 22 H (7-17) mg/dL Creatinine 1.19 H (0.52-1.04) mg/dL Glucose 72 L (74-99) mg/dL Calcium 7.9 L (8.4-10.2) mg/dL - Imaging CT scan - abdomen: report reviewed, image reviewed CT scan - pelvis: report reviewed, image reviewed Assessment and Plan Assessment: impression: Right renal mass, metastatic versus primary malignancy. History of metastatic breast cancer. Pancreatic tail abnormality, pancreatitis versus pseudocyst versus mass. Recommendations: At some point in time the mass in the kidney needs to be addressed. Obviously the pancreatic lesion is the most important problem at thi s point in time. Whether this lesion in the right lower pole of the kidney is primary or metastatic is indeterminate. A biopsy may be of benefit pending how she does with the pancreatic issues. I will follow this patient with you.
[2020-07-20 12:04] LABS: Cancer Antigen 19-9 36.8 U/mL (0.0-34.9)
[2020-07-20 12:06] LABS: Amylase 102 U/L (30-110); Lipase 508 U/L (23-300)
--- NOTE | 2020-07-20 12:07 | P.PN ---
Progress Note - Text Progress Note Date: 07/20/20 Patient is stable. She has decreased pain today. On exam vital signs are stable. Abdomen is soft. There is some mild epigastric tenderness. Chronic alcohol abuse. As Patient will undergo EGD in a.m. to evaluate gastric wall thickening.
--- NOTE | 2020-07-20 13:09 | ECHOF ---
Referral Reason:a fib MEASUREMENTS -------- HEIGHT: 152.4 cm WEIGHT: 59.0 kg BP: 117/65 IVSd: 1.4 cm (0.6 - 1.1) LVIDd: 3.3 cm (3.9 - 5.3) LVPWd: 1.5 cm (0.6 - 1.1) EDV(Teich): 43 ml IVSs: 1.5 cm LVIDs: 2.4 cm LVPWs: 1.8 cm %IVS Thck: 3 % ESV(Teich): 20 ml EF(Teich): 53 % %FS: 26 % SV(Teich): 23 ml RVIDd: 3.7 cm (< 3.3) LALs A4C: 6.3 cm LAAs A4C: 25.2 cm LAESV A-L A4C: 86 ml LAESV MOD A4C: 86 ml LALs A2C: 5.7 cm LAAs A2C: 21.8 cm LAESV A-L A2C: 71 ml LAESV MOD A2C: 69 ml LAESV(A-L): 82 ml LAESV Index (A-L): 52.98 ml/m Ao Diam: 3.2 cm (2.0 - 3.7) AV Cusp: 2.0 cm (1.5 - 2.6) MV E Ezra: 0.90 m/s MV DecT: 175 ms MV Dec [place]: 5.1 m/s MV A Ezra: 0.64 m/s MV E/A Ratio: 1.40 MV PHT: 51 ms LVOT Vmax: 1.05 m/s LVOT maxP.39 mmHg AV Vmax: 1.08 m/s AV maxP.66 mmHg TR Vmax: 2.75 m/s TR maxP.22 mmHg RAP: 5.00 mmHg RVSP: 35.22 mmHg FINDINGS -------- Sinus rhythm. This was a technically adequate study. The left ventricular size is normal. There is moderate concentric left ventricular hypertrophy. O verall left ventricular systolic function is normal with, an EF between 55 - 60 %. The right ventricle is mildly enlarged. LA is severely dilated >40 ml/m2 The right atrium was not well visualized. There is mild aortic valve sclerosis. There is [id number] aortic regurgitation. Mild mitral annular calcification present. [id number] mitral regurgitation is present. Mild tricuspid regurgitation present. There is mild pulmonary hypertension. The right ventricular systolic pressure, as measured by Doppler, is 35.22mmHg. There is no pulmonic regurgitation present. The aortic root size is normal. Normal inferior vena cava with normal inspiratory collapse consistent with estimated right atrial pre ssure of 5 mmHg. There is no pericardial effusion. CONCLUSIONS -------- 1. There is moderate concentric left ventricular hypertrophy. 2. Overall left ventricular systolic function is normal with, an EF between 55 - 60 %. 3. The right ventricle is mildly enlarged. 4. LA is severely dilated >40 ml/m2 5. There is mild aortic valve sclerosis. 6. There is qixk-[id number]-ieobteva aortic regurgitation. 7. [id number] mitral regurgitation is present. 8. Mild tricuspid regurgitation present. 9. There is mild pulmonary hypertension. 10. There is no pericardial effusion. [facility] ATTENDANT: Jamila Burks RDCS
--- NOTE | 2020-07-20 14:28 | P.PN ---
Subjective Progress Note Date: 07/20/20 CHIEF COMPLAINT: afib HISTORY OF PRESENT ILLNESS: Patient examined this morning at the bedside. She denies chest pain or pressure. Denies shortness of breath. She continues to complain of left-sided abdominal pain. Blood pressure stable. Heart rate in the 60s. Echocardiogram completed reveals EF 55-60%, mild to moderate mitral regurgitation, mild tricuspid regurgitation. PHYSICAL EXAM: VITAL SIGNS: Reviewed. GENERAL: Well-developed in no acute distress. HEENT: Head is normocephalic. Pupils are equal, round. Sclerae anicteric. Mucous membranes of the mouth are moist. Neck supple. No JVD or thyromegaly LUNGS: Respirations even and unlabored. Lungs essentially clear to auscultation bilaterally. HEART: Regular rate and rhythm. S1 and S2 heard. EXTREMITIES: Normal range of motion. No clubbing or cyanosis. Peripheral pulse s intact. No lower extremity edema NEUROLOGIC: Awake and alert. Oriented x 3. ASSESSMENT: Acute pancreatitis New-onset atrial fibrillation with RVR, currently maintaining sinus mechanism Hypertension History of breast cancer Nicotine dependence, patient smokes 1 pack per day Daily alcohol use PLAN: Continue current cardiac medications Continue telemetry monitoring Continue IV heparin. Patient will require transition to oral anticoagulation. Patient to undergo EGD tomorrow with Dr. Massey. Heparin drip to be stopped at [address] Massey Nurse practitioner note has been reviewed by physician. Signing provider agrees with the documented findings, assessment, and plan of care. Objective - Vital Signs Vital signs: Vital Signs Temp 97.7 F 07/20/20 11:40 Pulse 67 07/20/20 11:40 Resp 18 07/20/20 11:40 BP 121/63 07/20/20 11:40 Pulse Ox 98 07/20/20 11:40 Intake & Output 07/19/20 07/20/20 07/20/20 18:59 06:59 18:59 Intake Total 100 72.206 150 Output Total 0 Balance 100 72.206 150 Weight 54.431 kg 59.3 kg Intake: Intake, IV Titration 72.206 100 Amount Heparin Sod,Pork in 0.45% 72.206 NaCl 25,000 unit In 0.45 % NaCl 1 250ml.bag @ 12 UNITS/KG/HR 6.532 mls/hr IV .Q24H [facility] Rx#: [id number] Piperacillin-Tazobactam 3 100 .375 gm In Sodium Chloride 0.9% 100 ml @ 25 mls/hr IVPB Q8H [facility] Rx#: [id number] Oral 100 50 Output: Urine 0 Other: # Voids 0 2 - Labs CBC & Chem 7: 07/20/20 05:23 07/20/20 05:23 Labs: Abnormal Lab Results - Last 24 Hours (Table) 07/19/20 07/19/20 07/20/20 Range/Units 12:28 19: 05:23 RBC (3.80-5.40) m/uL MCV (80.0-100.0) fL MCH (25.0-35.0) pg Plt Count (150-450) k/uL Lymphocytes # (1.0-4.8) k/uL Macrocytosis APTT 30.9 H (22.0-30.0) sec Sodium (137-145) mmol/L BUN (7-17) mg/dL Creatinine (0.52-1.04) mg/dL Glucose (74-99) mg/dL Calcium (8.4-10.2) mg/dL Lipase (23-300) U/L CA 19-9 Antigen 36.8 H (0.0-34.9) U/mL Procalcitonin 0.45 H (0.02-0.09) ng/mL 07/20/20 07/20/20 07/20/20 Range/Units 05:23 05:23 05:23 RBC 3.20 L (3.80-5.40) m/uL MCV 115.6 H (80.0-100.0) fL MCH 36.3 H (25.0-35.0) pg Plt Count 115 L (150-450) k/uL Lymphocytes # 0.7 L (1.0-4.8) k/uL Macrocytosis Marked A APTT 110.5 H* (22.0-30.0) sec Sodium 135 L (137-145) mmol/L BUN 22 H (7-17) mg/dL Creatinine 1.19 H (0.52-1.04) mg/dL Glucose 72 L (74-99) mg/dL Calcium 7.9 L (8.4-10.2) mg/dL Lipase (23-300) U/L CA 19-9 Antigen (0.0-34.9) U/mL Procalcitonin (0.02-0.09) ng/mL 07/20/20 Range/Units 05:23 RBC (3.80-5.40) m/uL MCV (80.0-100.0) fL MCH (25.0-35.0) pg Plt Count (150-450) k/uL Lymphocytes # (1.0-4.8) k/uL Macrocytosis APTT (22.0-30.0) sec Sodium (137-145) mmol/L BUN (7-17) mg/dL Creatinine (0.52-1.04) mg/dL Glucose (74-99) mg/dL Calcium (8.4-10.2) mg/dL Lipase 508 H (23-300) U/L CA 19-9 Antigen (0.0-34.9) U/mL Procalcitonin (0.02-0.09) ng/mL Microbiology - Last 24 Hours (Table) 07/19/20 03:27 Blood Culture - Preliminary Blood No Growth after 24 hours
[2020-07-20] MEDS: HEPARIN SOD,PORK IN 0.45% NACL 25,000 UNIT in 0.45% NACL 1 250ML.BAG IV SCH (14:44)
[2020-07-20] MEDS: HEPARIN SODIUM,PORCINE 5,000 UNIT/ML 1 ML VIAL IV PRN (16:20)
[2020-07-20 20:06] LABS: Glucose,Whole Blood 79 mg/dL (75-99)
--- NOTE | 2020-07-20 23:47 | P.PN ---
Subjective This is a pleasant 69 years old female with multiple medical problems as below. She is a patient of Dr. Rivers. She presents because of one-day history of upper abdominal pain, she had this pain for 1 week as mild but More severe yesterday so she decided to come to the hospital, her pain is in the epigastric and left upper quadrant going to the back. Prep like 8/10 in severity when she came in, resolved significantly with Dilaudid. [place] like sharp associated with loose bowel movement and vomited 3 times. She smokes about 1 pack per day, she was counseled and she agrees to quit and she agrees to the nicotine patch She drinks about 2 cups of coffee feels each night. She denies illicit drugs Vitas looks stable however blood pressure on the high side 182/93 On admission Showing leukocytosis of 14.9 K, rest of CBC is unremarkable. BMP shows sodium 133, potassium 3.4, creatinine is within the reference range of 0.9 with GFR of 7. Her lactic acid came back to normal. Urine analysis is no suspicious of infection Elevated lipase at 3173 CT of the abdomen and pelvis: Pancreatitis, Masslike density inseparable to the pancreatic tail, 9 cm right kidney lesion, gastric and areas of small and large bowel thickening correlates clinically regarding inflammatory/infectious process. EKG showed atrial fibrillation with RVR at 117 In the emergency room patient was started on Dilaudid, IV fluid with normal saline at 130 mL/h, and Zosyn. Also started on heparin drip, Started on Ativan as needed same GI, surgery and cartilage team were consulted 07/20/2020 Patient is awake, she still complaining of from upper abdominal pain, mainly on the left side related to her pancreatitis. She remains on normal saline at 1:30 milliliters per hour with pain management. She is also on empiric antibiotics with elevated pro-calcitonin EGD will be done in the morning by surgery team to evaluate for gastric wall thickening MRI of the pancreas is ordered by GI team to assess for pancreatic mass. CA 19-9 NTG and is elevated at 36.8 but CEA is normal at 3.0 Patient will need biopsy of her right kidney mass per urology on the case Continue with CIWA protocol and vitamins. Cardiology team R following the case for new onset A. fib with RVR, currently on heparin drip and switched to oral when appropriate. Rate control Review of Systems CONSTITUTIONAL: No fever, no malaise, no fatigue. HEENT: No recent visual problems or hearing problems. Denied any sore throat. CARDIOVASCULAR: No orthopnea, PND, no palpitations, no syncope. PULMONARY: No shortness of breath, no cough, no hemoptysis. GASTROINTESTINAL: No diarrhea, no nausea, no vomiting, no abdominal pain. Normoactive bowel sounds. NEUROLOGICAL: No headaches, no weakness, no numbness. Active Medications Generic Name Dose Route Start Last Admin Trade Name Freq PRN Reason Stop Dose Admin Atenolol 100 mg 07/19/20 09:00 07/20/20 09:21 Atenolol 50 Mg Tab PO 100 mg DAILY [facility] Administration Clonidine 0.2 mg 07/19/20 11:15 07/20/20 20:35 Clonidine Hcl 0.2 Mg Tab PO 0.2 mg BID [facility] Administration Heparin Sodium (Porcine) 0 unit 07/19/20 11:51 07/20/20 16:20 Heparin Sodium,Porcine 5,000 Unit/Ml 1 Ml Vial IV 2,965 unit PER PROTOCOL PRN Administration Low PTT Protocol Hydromorphone HCl 0.5 mg 07/19/20 03:20 07/20/20 19:55 Hydromorphone 0.5 Mg/0.5 Ml Syringe IVP 0.5 mg Q6HR PRN Administration Moderate Pain Sodium Chloride 1,000 mls @ 130 mls/hr 07/19/20 02:15 07/20/20 09:22 Saline 0.9% IV 130 mls/hr .Q7H42M [facility] Administration Piperacillin Sod/Tazobactam 100 mls @ 25 mls/hr 07/19/20 12:00 07/20/20 20:35 Sod 3.375 gm/ Sodium Chloride IVPB 25 mls/hr Q8H [facility] Administration Heparin Sodium/Sodium Chloride 250 mls @ 6.532 mls/hr 07/19/20 12:00 07/20/20 16:21 25,000 unit/ Sodium Chloride IV 14.99 units/kg/hr .Q24H [facility] 8.16 mls/hr Titration Protocol 12 UNITS/KG/HR Letrozole 2.5 mg 07/19/20 12:45 07/20/20 09:21 Letrozole 2.5 Mg Tab PO 2.5 mg DAILY [facility] Administration Lisinopril 5 mg 07/19/20 11:15 07/20/20 09:21 Lisinopril 5 Mg Tab PO 5 mg DAILY [facility] Administration Lorazepam 1 mg 07/19/20 03:15 Lorazepam 2 Mg/Ml Inj IV Q2HR PRN CIWA 8 or 9 Lorazepam 1 mg 07/19/20 03:15 Lorazepam 2 Mg/Ml Inj IV Q1HR PRN CIWA 10 to 15 Lorazepam 2 mg 07/19/20 03:15 Lorazepam 2 Mg/Ml Inj IV 07/21/20 03:15 Q10M PRN CIWA 16 or higher Naloxone HCl 0.2 mg 07/19/20 03:20 Naloxone 0.4 Mg/Ml 1 Ml Vial IV Q2M PRN Opioid Reversal Pantoprazole Sodium 40 mg 07/19/20 12:15 07/20/20 09:22 Pantoprazole 40 Mg/10 Ml Vial IVP 40 mg DAILY [facility] Administration Thiamine HCl 100 mg 07/19/20 17:30 07/20/20 22:49 Thiamine 100 Mg Tab PO Not Given BID-W/MEALS [facility] Objective - Vital Signs Vital signs: Vital Signs Temp 97.9 F 07/20/20 16:25 Pulse 58 L 07/20/20 16:25 Resp 18 07/20/20 16:25 BP 149/68 07/20/20 16:25 Pulse Ox 100 07/20/20 16:25 Intake & Output 07/20/20 07/20/20 07/21/20 06:59 18:59 06:59 Intake Total 72.206 582.858 Output Total 0 250 Balance 72.206 332.858 Weight 59.3 kg Intake: Intake, IV Titration 72.206 232.858 Amount Heparin Sod,Pork in 0.45% 72.206 132.858 NaCl 25,000 unit In 0.45 % NaCl 1 250ml.bag @ 12 UNITS/KG/HR 6.532 mls/hr IV .Q24H [facility] Rx#: [id number] Piperacillin-Tazobactam 3 100 .375 gm In Sodium Chloride 0.9% 100 ml @ 25 mls/hr IVPB Q8H [facility] Rx#: [id number] Oral 350 Output: Urine 0 250 Other: # Voids 0 2 - Exam GENERAL: The patient is alert and oriented x3, not in any acute distress. Well developed, well nourished. HEENT: Pupils are round and equally reacting to light. EOMI. No scleral icterus. No conjunctival pallor. Normocephalic, atraumatic. No pharyngeal erythema. No thyromegaly. CARDIOVASCULAR: S1 and S2 present. No murmurs, rubs, or gallops. PULMONARY: Chest is clear to auscultation, no wheezing or crackles. ABDOMEN: Soft, mild epigastric tenderness with no rebound tenderness, nondistended, normoactive bowel sounds. No palpable organomegaly. MUSCULOSKELETAL: No joint swelling or deformity. EXTREMITIES: No cyanosis, clubbing, or pedal edema. NEUROLOGICAL: Gross neurological examination did not reveal any focal deficits. SKIN: No rashes. No petechiae - Labs CBC & Chem 7: 07/20/20 05:23 07/20/20 05:23 Labs: Abnormal Lab Results - Last 24 Hours (Table) 07/19/20 07/20/20 07/20/20 Range/Units 12:28 05:23 05:23 RBC 3.20 L (3.80-5.40) m/uL MCV 115.6 H (80.0-100.0) fL MCH 36.3 H (25.0-35.0) pg Plt Count 115 L (150-450) k/uL Lymphocytes # 0.7 L (1.0-4.8) k/uL Macrocytosis Marked A APTT (22.0-30.0) sec Sodium (137-145) mmol/L BUN (7-17) mg/dL Creatinine (0.52-1.04) mg/dL Glucose (74-99) mg/dL Calcium (8.4-10.2) mg/dL Lipase (23-300) U/L CA 19-9 Antigen 36.8 H (0.0-34.9) U/mL Procalcitonin 0.45 H (0.02-0.09) ng/mL 07/20/20 07/20/20 07/20/20 Range/Units 05:23 05:23 05:23 RBC (3.80-5.40) m/uL MCV (80.0-100.0) fL MCH (25.0-35.0) pg Plt Count (150-450) k/uL Lymphocytes # (1.0-4.8) k/uL Macrocytosis APTT 110.5 H* (22.0-30.0) sec Sodium 135 L (137-145) mmol/L BUN 22 H (7-17) mg/dL Creatinine 1.19 H (0.52-1.04) mg/dL Glucose 72 L (74-99) mg/dL Calcium 7.9 L (8.4-10.2) mg/dL Lipase 508 H (23-300) U/L CA 19-9 Antigen (0.0-34.9) U/mL Procalcitonin (0.02-0.09) ng/mL Microbiology - Last 24 Hours (Table) 07/19/20 03:27 Blood Culture - Preliminary Blood No Growth after 24 hours Assessment and Plan Assessment: -Acute pancreatitis with CAT scan showing Masslike density inseparable to the pancreatic tail, could be also related to alcohol pancreatitis, continue with pain medication, IV fluids and bowel rest/resume. Patient was started on Zosyn empirically. Check pro-calcitonin, if negative of low we may consider stopping antibiotic -Masslike density inseparable to the pancreatic tail, surgical team were consulted and recommended EGD. -9 cm right kidney lesion, Suggest neoplasm as per radiologist, we will consult urology -Alcohol abuse, continue with CIWA protocol with Ativan as needed and timing -Nicotine dependence, patient is counseled, nicotine patch is offered -Atrial fibrillation with RVR, present on admission. Check echocardiogram. Cardiology on the case. Patient was started on heparin drip. Patient is currently on atenolol and clonidine -History of breast Cancer, bone scan from 10/22/2019 showing no evidence of bone metastasis -Hypertension, uncontrolled -Hyperlipidemia -Anxiety, no connective tissue DVT prophylaxis: Heparin GI prophylaxis: Protonix Prognosis is guarded
[2020-07-21] MEDS: HYDROmorphone 0.5 MG/0.5 ML SYRINGE IVP PRN ×3 (03:10→23:31)
[2020-07-21] MEDS: PIPERACILLIN-TAZOBACTAM 3.375 GM in SODIUM CHLORIDE 0.9% 100 ML IVPB SCH ×3 (03:58→20:07)
[2020-07-21] MEDS: SODIUM CHLORIDE 0.9% 1,000 ML IV SCH ×4 (03:58→23:32)
[2020-07-21] MEDS: THIAMINE 100 MG TAB PO SCH ×2 (06:14→16:27)
[2020-07-21] MEDS: PANTOPRAZOLE 40 MG/10 ML VIAL IVP SCH (09:48)
[2020-07-21] MEDS: atenoloL 50 MG TAB PO SCH (09:48)
[2020-07-21] MEDS: lisinopriL 5 MG TAB PO SCH (09:48)
[2020-07-21] MEDS: cloNIDine HCL 0.2 MG TAB PO SCH ×2 (09:48→20:07)
[2020-07-21] MEDS: LETROZOLE 2.5 MG TAB PO SCH (09:50)
[2020-07-21 10:23] LABS: Potassium 3.8 mmol/L (3.5-5.1)
--- NOTE | 2020-07-21 10:29 | P.PN ---
Subjective Progress Note Date: 07/21/20 The patient was seen for a 3 cm mass in the lower pole of the right kidney. Whether this is a primary renal malignancy or a metastatic lesion related to her breast cancer is indeterminate. Regardless treating the pancreas and the pancreatic problems supersedes further evaluation of this. She may need a biopsy this to clarify whether this is renal or breast again depending on how she does from her pancreas. Objective - Vital Signs Vital signs: Vital Signs Temp 98.1 F 07/21/20 03:00 Pulse 65 07/21/20 03:00 Resp 18 07/21/20 03:00 BP 157/77 07/21/20 03:00 Pulse Ox 93 L 07/21/20 03:00 Intake & Output 07/20/20 07/21/20 07/21/20 18:59 06:59 18:59 Intake Total 582.858 129.608 Output Total 250 Balance 332.858 129.608 Weight 58.7 kg Intake: Intake, IV Titration 232.858 129.608 Amount Heparin Sod,Pork in 0.45% 132.858 129.608 NaCl 25,000 unit In 0.45 % NaCl 1 250ml.bag @ 12 UNITS/KG/HR 6.532 mls/hr IV .Q24H [facility] Rx#: [id number] Piperacillin-Tazobactam 3 100 .375 gm In Sodium Chloride 0.9% 100 ml @ 25 mls/hr IVPB Q8H [facility] Rx#: [id number] Oral 350 Output: Urine 250 Other: # Voids 2 - Labs CBC & Chem 7: 07/20/20 05:23 07/21/20 09:07 Labs: Abnormal Lab Results - Last 24 Hours (Table) 07/20/20 07/20/20 07/20/20 Range/Units 05:23 05:23 22:23 APTT 54.6 H (22.0-30.0) sec Sodium (137-145) mmol/L Chloride (98-107) mmol/L Carbon Dioxide (22-30) mmol/L BUN (7-17) mg/dL Creatinine (0.52-1.04) mg/dL Glucose (74-99) mg/dL Calcium (8.4-10.2) mg/dL Lipase 508 H (23-300) U/L CA 19-9 Antigen 36.8 H (0.0-34.9) U/mL 07/21/20 Range/Units 09:07 APTT (22.0-30.0) sec Sodium 135 L (137-145) mmol/L Chloride 111 H (98-107) mmol/L Carbon Dioxide 18 L (22-30) mmol/L BUN 19 H (7-17) mg/dL Creatinine 1.13 H (0.52-1.04) mg/dL Glucose 57 L (74-99) mg/dL Calcium 8.0 L (8.4-10.2) mg/dL Lipase (23-300) U/L CA 19-9 Antigen (0.0-34.9) U/mL Microbiology - Last 24 Hours (Table) 07/19/20 03:27 Blood Culture - Preliminary Blood No Growth after 48 hours
[2020-07-21 10:39] LABS: HCT 37.6 % (34.0-46.0); HGB 11.4 gm/dL (11.4-16.0); Hypochromasia Moderate; MCH 35.9 pg (25.0-35.0); MCHC 30.4 g/dL (31.0-37.0); MCV 118.2 fL (80.0-100.0); Macrocytosis Marked; Platelet Count 130 k/uL (150-450); RBC 3.19 m/uL (3.80-5.40); RDW 15.1 % (11.5-15.5); WBC 8.2 k/uL (3.8-10.6)
--- NOTE | 2020-07-21 11:44 | P.PN ---
Subjective Progress Note Date: 07/20/20 Principal diagnosis: Abdominal pain, pancreatitis, pancreatic mass Patient is seen lying in bed no nausea or vomiting. She does report some abdominal pain improved with pain medications. Objective - Vital Signs Vital signs: Vital Signs Temp 98.0 F 07/20/20 03:39 Pulse 57 L 07/20/20 03:39 Resp 18 07/20/20 03:39 BP 133/62 07/20/20 03:39 Pulse Ox 100 07/20/20 03:39 Intake & Output 07/19/20 07/20/20 07/20/20 18:59 06:59 18:59 Intake Total 100 72.206 Output Total 0 Balance 100 72.206 Weight 54.431 kg 59.3 kg Intake: Intake, IV Titration 72.206 Amount Heparin Sod,Pork in 0.45% 72.206 NaCl 25,000 unit In 0.45 % NaCl 1 250ml.bag @ 12 UNITS/KG/HR 6.532 mls/hr IV .Q24H [facility] Rx#: [id number] Oral 100 Output: Urine 0 Other: # Voids 0 - Exam On physical examination, patient appears comfortable in no apparent distress. HEAD: Normocephalic, atraumatic. EYES: No scleral icterus. No conjunctival injection. MOUTH: No lesions, tongue midline. NECK: Trachea midline, no gross abnormalities. ABDOMEN: Soft, mildly tender to palpation. Bowel sounds are positive. No organomegaly. No guarding or rigidity. EXTREMITIES: No pedal edema. SKIN: No rashes, no jaundice. NEUROLOGIC: Alert and oriented x3. No focal deficits. - Labs CBC & Chem 7: 07/21/20 09:07 07/21/20 09:07 Labs: Abnormal Lab Results - Last 24 Hours (Table) 07/19/20 07/19/20 07/19/20 Range/Units 07:37 12:28 19:26 WBC 12.8 H (3.8-10.6) k/uL RBC (3.80-5.40) m/uL MCV 117.2 H D (80.0-100.0) fL MCH 35.6 H (25.0-35.0) pg MCHC 30.4 L (31.0-37.0) g/dL Plt Count (150-450) k/uL Neutrophils # 11.5 H (1.3-7.7) k/uL Lymphocytes # 0.5 L (1.0-4.8) k/uL Macrocytosis Marked A APTT 30.9 H (22.0-30.0) sec Sodium (137-145) mmol/L BUN (7-17) mg/dL Creatinine (0.52-1.04) mg/dL Glucose (74-99) mg/dL Calcium (8.4-10.2) mg/dL Procalcitonin 0.45 H (0.02-0.09) ng/mL 07/20/20 07/20/20 07/20/20 Range/Units 05:23 05:23 05:23 WBC (3.8-10.6) k/uL RBC 3.20 L (3.80-5.40) m/uL MCV 115.6 H (80.0-100.0) fL MCH 36.3 H (25.0-35.0) pg MCHC (31.0-37.0) g/dL Plt Count 115 L (150-450) k/uL Neutrophils # (1.3-7.7) k/uL Lymphocytes # 0.7 L (1.0-4.8) k/uL Macrocytosis Marked A APTT 110.5 H* (22.0-30.0) sec Sodium 135 L (137-145) mmol/L BUN 22 H (7-17) mg/dL Creatinine 1.19 H (0.52-1.04) mg/dL Glucose 72 L (74-99) mg/dL Calcium 7.9 L (8.4-10.2) mg/dL Procalcitonin (0.02-0.09) ng/mL Microbiology - Last 24 Hours (Table) 07/19/20 03:27 Blood Culture - Preliminary Blood No Growth after 24 hours Assessment and Plan (1) Pancreatitis Narrative/Plan: 69-year-old female with multiple medical comorbidities presented to the hospital with complaints of abdominal pain and was found to have elevation in lipase at [address] showing stranding consistent with pancreatitis. Currently pain is somewhat improved and she is tolerating diet. She does report daily alcohol use for the past 20 years approximately 3 cocktails daily. She did have some nausea and vomiting with her symptoms. Currently she is being admitted and treated for acute pancreatitis. CT also showed a possible fluid collection, hematoma or mass in the area of the pancreatic tail, gastric fundus and left adrenal with MRI ordered and surgical service point EGD for evaluation of stomach. Current Visit: Yes Status: Acute Code(s): K85.90 - ACUTE PANCREATITIS WITHOUT NECROSIS OR INFECTION, UNSP SNOMED Code(s): 91179982 (2) Abnormal CT of the abdomen Narrative/Plan: Computed tomography scan with findings of a masslike area in the pancreatic tail, gastric fundus and left adrenal with differential including hematoma, fluid collection or solid mass. Current Visit: Yes Status: Acute Code(s): R93.5 - ABN FINDINGS ON DX IMAGING OF ABD REGIONS, INC RETROPERITON SNOMED Code(s): 93069080448143987 Plan: Supportive care Okay for diet as tolerated Continue pain control Continue IV fluid hydration Alcohol abstinence Continue to monitor and treat for signs and symptoms of alcohol withdrawal Tumor markers showing only mild elevation of CA 199 and normal CEA MRI/MRCP ordered for further evaluation of pancreatic mass Surgical service following and plan for EGD tomorrow for evaluation of gastric thickening on CT Thank you for allowing us to participate in the care of the patient we will continue to follow
[2020-07-21] MEDS ORDERED: PROPOFOL 10 MG/ML 20 ML VIAL IV ONE (13:05)
[2020-07-21] MEDS ORDERED: LIDOCAINE 1% INJ 10MG/ML (20 ML MDV) ONE (13:05)
[2020-07-21] MEDS ORDERED: IV FLUID CONTINUATION 1,000 ML IV ONE ×2 (13:06)
--- NOTE | 2020-07-21 13:19 | P.OP ---
Date of Procedure: 07/21/20 Preoperative Diagnosis: Pancreatitis Postoperative Diagnosis: Gastritis Procedure(s) Performed: EGD Anesthesia: MAC Surgeon: Tolu Massey Pathology: other (Antrum) Condition: stable Disposition: PACU Description of Procedure: The patient's placed on the endoscopy table in the lateral position. She rec eived IV sedation. The gastroscope was oropharynx and passed in the esophagus into the stomach. Scope was then placed through the pylorus. The first and second portion of duodenum appeared normal. Scope was then brought back the antrum and appeared to be evidence of inflammatory changes in the antrum. This area is biopsied. The scope was unretroflexed and remainder stomach appeared normal. The GE junction was at 40 cm the distal esophagus appeared normal. The proximal esophagus appeared normal. Scope was withdrawn for patient.
--- NOTE | 2020-07-21 14:26 | P.PN ---
Subjective Progress Note Date: 07/21/20 CHIEF COMPLAINT: afib HISTORY OF PRESENT ILLNESS: Patient examined at the bedside. She denies chest pain or pressure. Denies shortness of breath. Patient underwent EGD today revealing mild gastritis. PHYSICAL EXAM: VITAL SIGNS: Reviewed. GENERAL: Well-developed in no acute distress. HEENT: Head is normocephalic. Pupils are equal, round. Sclerae anicteric. Mucous membranes of the mouth are moist. Neck supple. No JVD or thyromegaly LUNGS: Respirations even and unlabored. Lungs essentially clear to auscultation bilaterally. HEART: Regular rate and rhythm. S1 and S2 heard. EXTREMITIES: Normal range of motion. No clubbing or cyanosis. Peripheral pulses intact. No lower extremity edema NEUROLOGIC: Awake and alert. Oriented x 3. ASSESSMENT: Acute pancreatitis New-onset atrial fibrillation with RVR, currently maintaining sinus mechanism Hypertension History of breast cancer Nicotine dependence, patient smokes 1 pack per day Daily alcohol use PLAN: Continue current cardiac medications Continue telemetry monitoring Begin Eliquis 5 mg twice a day, first dose tonight. Continue heparin drip until Eliquis has been administered Further recommendations pending patient's course Nurse practitioner note has been reviewed by physician. Signing provider agrees with the documented findings, assessment, and plan of care. Objective - Vital Signs Vital signs: Vital Signs Temp 98.1 F 07/21/20 03:00 Pulse 65 07/21/20 03:00 Resp 18 07/21/20 03:00 BP 157/77 07/21/20 03:00 Pulse Ox 93 L 07/21/20 03:00 Intake & Output 07/20/20 07/21/20 07/21/20 18:59 06:59 18:59 Intake Total 582.858 229.608 Output Total 250 Balance 332.858 229.608 Weight 58.7 kg Intake: IV 100 Intake, IV Titration 232.858 129.608 Amount Heparin Sod,Pork in 0.45% 132.858 129.608 NaCl 25,000 unit In 0.45 % NaCl 1 250ml.bag @ 12 UNITS/KG/HR 6.532 mls/hr IV .Q24H [facility] Rx#: [id number] Piperacillin-Tazobactam 3 100 .375 gm In Sodium Chloride 0.9% 100 ml @ 25 mls/hr IVPB Q8H [facility] Rx#: [id number] Oral 350 Output: Urine 250 Other: # Voids 2 2 - Labs CBC & Chem 7: 07/21/20 09:07 07/21/20 09:07 Labs: Abnormal Lab Results - Last 24 Hours (Table) 07/20/20 07/21/20 07/21/20 Range/Units 22:23 09:07 09:07 RBC 3.19 L (3.80-5.40) m/uL MCV 118.2 H (80.0-100.0) fL MCH 35.9 H (25.0-35.0) pg MCHC 30.4 L (31.0-37.0) g/dL Plt Count 130 L (150-450) k/uL Macrocytosis Marked A APTT 54.6 H (22.0-30.0) sec Sodium 135 L (137-145) mmol/L Chloride 111 H (98-107) mmol/L Carbon Dioxide 18 L (22-30) mmol/L BUN 19 H (7-17) mg/dL Creatinine 1.13 H (0.52-1.04) mg/dL Glucose 57 L (74-99) mg/dL Calcium 8.0 L (8.4-10.2) mg/dL Microbiology - Last 24 Hours (Table) 07/19/20 03:27 Blood Culture - Preliminary Blood No Growth after 48 hours
[2020-07-21 14:39] LABS: Band Neutrophils % 1 %; Lymphocytes # (M) 0.66 k/uL (1.0-4.8); Monocytes # (M) 0.49 k/uL (0-1.0); Neutrophils % (M) 85 %; Nucleated Red Blood Cells 0 /100 WBC (0-0); Total Cells Counted 100
--- NOTE | 2020-07-21 15:48 | MR ---
EXAMINATION TYPE: MR abdomen wo/w con DATE OF EXAM: 07/21/2020 COMPARISON: HISTORY: Pancreaitis CONTRAST: Standard multiplanar, multisequence MRI departmental protocol utilizing 6 mL intravenous Gadavist neris olinium contrast. There is a mixed signal mass posterior to the stomach and anterior to the tail of the pancreas consis tent with a pseudocyst in the lesser sac. This measures 7.5 x 5 x 6 cm. There is some anterior displa cement of the posterior wall of the stomach. The pancreatic duct has normal size. There is a 2.5 cm mixed signal cystic area in the posterior tail of the pancreas. Spleen has normal size and contour. The liver shows no focal defect. The bile ducts are not dilated. There is small amount of abdominal ascites fluid. The kidneys show satisfactory contrast opacificatio n. There is no hydronephrosis. There is a rounded 2.8 cm partly enhancing mass involving cortex poste rior right kidney. There is subcutaneous edema around the abdomen. There is infiltrate and pleural fluid at the left pos terior lung base. There is small right pleural effusion. IMPRESSION: Mixed signal complex mass in the lesser sac could be a pseudocyst with hemorrhage. This appears uncha nged compared to the recent CT scan of 07/19/2020. I have low suspicion of a tumor. Tumor not entirel y excluded. There is abdominal ascites. There is pleural effusions and left lower lobe infiltrate. Th ere is a cystic mass posterior tail of the pancreas that is likely pseudocyst and unchanged compared to recent CT scan of 07/19/2020. Abdominal ascites unchanged. There is mixed signal enhancing renal mass unchanged compared to the old CT scan of 12/22/2017 and prob ably a angiomyolipoma. Mass also present on older CT scan of 06/17/2016 and increased from 2.4 cm to 2.8 cm in the 4 year time period.
[2020-07-21] MEDS: HEPARIN SOD,PORK IN 0.45% NACL 25,000 UNIT in 0.45% NACL 1 250ML.BAG IV SCH (16:36)
[2020-07-21 17:00] LABS: Glucose,Whole Blood 69 mg/dL (75-99)
[2020-07-21 17:18] LABS: Glucose,Whole Blood 64 mg/dL (75-99)
[2020-07-21 17:49] LABS: Glucose,Whole Blood 126 mg/dL (75-99)
[2020-07-21] MEDS: HYDROcodone/APAP 5-325MG 1 EACH TAB PO PRN (20:07)
[2020-07-21] MEDS: APIXABAN 5 MG TAB PO SCH (20:07)
--- NOTE | 2020-07-21 21:29 | P.PN ---
Subjective This is a pleasant 69 years old female with multiple medical problems as below. She is a patient of Dr. Rivers. She presents because of one-day history of upper abdominal pain, she had this pain for 1 week as mild but More severe yesterday so she decided to come to the hospital, her pain is in the epigastric and left upper quadrant going to the back. Prep like 8/10 in severity when she came in, resolved significantly with Dilaudid. [place] like sharp associated with loose bowel movement and vomited 3 times. She smokes about 1 pack per day, she was counseled and she agrees to quit and she agrees to the nicotine patch She drinks about 2 cups of coffee feels each night. She denies illicit drugs Vitas looks stable however blood pressure on the high side 182/93 On admission Showing leukocytosis of 14.9 K, rest of CBC is unremarkable. BMP shows sodium 133, potassium 3.4, creatinine is within the reference range of 0.9 with GFR of 7. Her lactic acid came back to normal. Urine analysis is no suspicious of infection Elevated lipase at 3173 CT of the abdomen and pelvis: Pancreatitis, Masslike density inseparable to the pancreatic tail, 9 cm right kidney lesion, gastric and areas of small and large bowel thickening correlates clinically regarding inflammatory/infectious process. EKG showed atrial fibrillation with RVR at 117 In the emergency room patient was started on Dilaudid, IV fluid with normal saline at 130 mL/h, and Zosyn. Also started on heparin drip, Started on Ativan as needed same GI, surgery and cartilage team were consulted 07/20/2020 Patient is awake, she still complaining of from upper abdominal pain, mainly on the left side related to her pancreatitis. She remains on normal saline at 1:30 milliliters per hour with pain management. She is also on empiric antibiotics with elevated pro-calcitonin EGD will be done in the morning by surgery team to evaluate for gastric wall thickening MRI of the pancreas is ordered by GI team to assess for pancreatic mass. CA 19-9 NTG and is elevated at 36.8 but CEA is normal at 3.0 Patient will need biopsy of her right kidney mass per urology on the case Continue with CIWA protocol and vitamins. Cardiology team R following the case for new onset A. fib with RVR, currently on heparin drip and switched to oral when appropriate. Rate control 07/21/2020 Patient still complaining of from left flank or left lower chest pain, She is tolerating liquid diet well and asked to be advanced. EGD: Showing antral gastritis, status post biopsy Today her heparin drip was switched to Eliquis per cardiology recommendation MRI of the pancreas showing complex mass of the lesser sac is more likely pseudocyst with hemorrhage per radiologist which is unchanged from 07/19/20 making low suspicion of malignancy per radiologist also has left lower lobe infiltrate and subsequent of the tail of the pancreas Privilege team is recommending biopsy for her right kidney mass Today I discussed the case with Hazel from oncology and a consult was placed for them as she is known to their service for history of breast cancer Review of Systems CONSTITUTIONAL: No fever, no malaise, no fatigue. HEENT: No recent visual problems or hearing problems. Denied any sore throat. CARDIOVASCULAR: No orthopnea, PND, no palpitations, no syncope. PULMONARY: No shortness of breath, no cough, no hemoptysis. GASTROINTESTINAL: No diarrhea, no nausea, no vomiting, no abdominal pain. Norm oactive bowel sounds. NEUROLOGICAL: No headaches, no weakness, no numbness. Active Medications Generic Name Dose Route Start Last Admin Trade Name Freq PRN Reason Stop Dose Admin Hydrocodone Bitart/Acetaminophen 1 each 07/21/20 19:50 07/21/20 20:07 Hydrocodone/Apap 5-325mg 1 Each Tab PO 1 each Q6HR PRN Administration Pain Apixaban 5 mg 07/21/20 21:00 07/21/20 20:07 Apixaban 5 Mg Tab PO 5 mg BID JOEY Administration Atenolol 100 mg 07/19/20 09:00 07/21/20 09:48 Atenolol 50 Mg Tab PO 100 mg DAILY JOEY Administration Clonidine 0.2 mg 07/19/20 11:15 07/21/20 20:07 Clonidine Hcl 0.2 Mg Tab PO 0.2 mg BID JOEY Administration Heparin Sodium (Porcine) 0 unit 07/19/20 11:51 07/20/20 16:20 Heparin Sodium,Porcine 5,000 Unit/Ml 1 Ml Vial IV 07/21/20 22:00 2,965 unit PER PROTOCOL PRN Administration Low PTT Protocol Hydromorphone HCl 0.5 mg 07/19/20 03:20 07/21/20 16:27 Hydromorphone 0.5 Mg/0.5 Ml Syringe IVP 0.5 mg Q6HR PRN Administration Moderate Pain Sodium Chloride 1,000 mls @ 130 mls/hr 07/19/20 02:15 07/21/20 16:27 Saline 0.9% IV 130 mls/hr .Q7H42M JOEY Administration Piperacillin Sod/Tazobactam 100 mls @ 25 mls/hr 07/19/20 12:00 07/21/20 20:07 Sod 3.375 gm/ Sodium Chloride IVPB 25 mls/hr Q8H JOEY Administration Heparin Sodium/Sodium Chloride 250 mls @ 6.532 mls/hr 07/19/20 12:00 07/21/20 16:36 25,000 unit/ Sodium Chloride IV 07/21/20 22:00 Not Given .Q24H JOEY Protocol 12 UNITS/KG/HR Letrozole 2.5 mg 07/19/20 12:45 07/21/20 09:50 Letrozole 2.5 Mg Tab PO 2.5 mg DAILY JOEY Administration Lisinopril 5 mg 07/19/20 11:15 07/21/20 09:48 Lisinopril 5 Mg Tab PO 5 mg DAILY JOEY Administration Lorazepam 1 mg 07/19/20 03:15 Lorazepam 2 Mg/Ml Inj IV Q2HR PRN CIWA 8 or 9 Lorazepam 1 mg 07/19/20 03:15 Lorazepam 2 Mg/Ml Inj IV Q1HR PRN CIWA 10 to 15 Naloxone HCl 0.2 mg 07/19/20 03:20 Naloxone 0.4 Mg/Ml 1 Ml Vial IV Q2M PRN Opioid Reversal Pantoprazole Sodium 40 mg 07/19/20 12:15 07/21/20 09:48 Pantoprazole 40 Mg/10 Ml Vial IVP 40 mg DAILY JOEY Administration Thiamine HCl 100 mg 07/19/20 17:30 07/21/20 16:27 Thiamine 100 Mg Tab PO 100 mg BID-W/MEALS JOEY Administration Objective - Vital Signs Vital signs: Vital Signs Temp 98.1 F 07/21/20 03:00 Pulse 65 07/21/20 03:00 Resp 18 07/21/20 03:00 BP 157/77 07/21/20 03:00 Pulse Ox 93 L 07/21/20 03:00 Intake & Output 07/20/20 07/21/20 07/21/20 18:59 06:59 18:59 Intake Total 582.858 229.608 Output Total 250 Balance 332.858 229.608 Weight 58.7 kg Intake: IV 100 Intake, IV Titration 232.858 129.608 Amount Heparin Sod,Pork in 0.45% 132.858 129.608 NaCl 25,000 unit In 0.45 % NaCl 1 250ml.bag @ 12 UNITS/KG/HR 6.532 mls/hr IV .Q24H JOEY Rx#: [id number] Piperacillin-Tazobactam 3 100 .375 gm In Sodium Chloride 0.9% 100 ml @ 25 mls/hr IVPB Q8H JOEY Rx#: [id number] Oral 350 Output: Urine 250 Other: # Voids 2 2 - Exam GENERAL: The patient is alert and oriented x3, not in any acute distress. Well developed, well nourished. HEENT: Pupils are round and equally reacting to light. EOMI. No scleral icterus. No conjunctival pallor. Normocephalic, atraumatic. No pharyngeal erythema. No thyromegaly. CARDIOVASCULAR: S1 and S2 present. No murmurs, rubs, or gallops. PULMONARY: Chest is clear to auscultation, no wheezing or crackles. ABDOMEN: Soft, mild epigastric tenderness with no rebound tenderness, nondistended, normoactive bowel sounds. No palpable organomegaly. MUSCULOSKELETAL: No joint swelling or deformity. EXTREMITIES: No cyanosis, clubbing, or pedal edema. NEUROLOGICAL: Gross neurological examination did not reveal any focal deficits. SKIN: No rashes. No petechiae - Labs CBC & Chem 7: 07/21/20 09:07 07/21/20 09:07 Labs: Abnormal Lab Results - Last 24 Hours (Table) 07/20/20 07/21/20 07/21/20 Range/Units 22:23 09:07 09:07 RBC 3.19 L (3.80-5.40) m/uL MCV 118.2 H (80.0-100.0) fL MCH 35.9 H (25.0-35.0) pg MCHC 30.4 L (31.0-37.0) g/dL Plt Count 130 L (150-450) k/uL Macrocytosis Marked A APTT 54.6 H (22.0-30.0) sec Sodium 135 L (137-145) mmol/L Chloride 111 H (98-107) mmol/L Carbon Dioxide 18 L (22-30) mmol/L BUN 19 H (7-17) mg/dL Creatinine 1.13 H (0.52-1.04) mg/dL Glucose 57 L (74-99) mg/dL Calcium 8.0 L (8.4-10.2) mg/dL Microbiology - Last 24 Hours (Table) 07/19/20 03:27 Blood Culture - Preliminary Blood No Growth after 48 hours Assessment and Plan Assessment: -Acute pancreatitis with pseudocyst continue with pain medication, IV fluids . Advance diet to regular as tolerated. Patient was started on Zosyn empirically. -Masslike density inseparable to the pancreatic tail, MRI showing pseudocyst of the tail of the pancreas, pseudocyst with hemorrhage and the lesser sac -EGD: Showing antral gastritis, status post biopsy -9 cm right kidney lesion, Suggest neoplasm as per radiologist, we will consult urology -Alcohol abuse, continue with CIWA protocol with Ativan as needed and timing -Nicotine dependence, patient is counseled, nicotine patch is offered -Atrial fibrillation with RVR, present on admission. Ejection fraction 55-60%. Cardiology on the case. Started on Eliquis Patient is currently on atenolol and clonidine -History of breast Cancer, bone scan from 10/22/2019 showing no evidence of bone metastasis -Hypertension, uncontrolled -Hyperlipidemia -Anxiety, no connective tissue DVT prophylaxis: Heparin GI prophylaxis: Protonix Prognosis is guarded
--- NOTE | 2020-07-21 23:57 | CONS ---
CONSULTATION DATE OF SERVICE: July 21, 2020. REASON FOR CONSULTATION: Breast cancer. CHIEF COMPLAINT: Abdominal pain and nausea. Rosemarie is a very pleasant 69 years old lady very well known to our practice. She has been under the care of Dr. Bennett. She had right breast cancer stage I, T1c N0 in 2006, treated with mastectomy and she received adjuvant FEMARA for 5 years diagnosed around 2001 and she received 5 years FEMARA, completed in 2006. In 2011, she presented with pain in her neck and she was found to have a mass in her neck. She underwent a decompressive laminectomy at that time and the biopsy was consistent with breast carcinoma, but was triple negative at that time. Compared to her original breast cancer which was estrogen positive hormone positive in 2001. She received radiation therapy and she declined adjuvant chemotherapy at that time. Also at that time she did not have any evidence of other site of metastatic disease. The patient watched this conservatively in 2012. She had more further local progression in her neck and right cervical nodes, with two paraspinal lesions and right supraclavicular node. She received systemic chemotherapy with Taxotere. She had an excellent response to it and that was completed in 2013 and since then she has been watched by Dr. Bennett conservatively. She was last seen by Dr. Bennett in the office on 06/29/2020, and she was doing well at that point in time. However, she came into the hospital this time with nausea, vomiting, and left upper quadrant pain of about 5 days duration. In the emergency department, she was found to have significantly elevated lipase and she was admitted for possible pancreatitis. The patient admits of drinking on a daily basis, but she stated it is a small amount. Today she also did have a CT scan of the abdomen and pelvis when she came into the emergency department, which showed stranding and fluid in the abdomen and mass like density inseparable from the pancreatic tape, gastric fundus and left adrenal gland, and the differential included a mass versus hematoma or complex fluid collection and also there was renally right kidney lesion. Today, the patient feels better. She has no more nausea or vomiting. She still has some of the pain in the left upper quadrant. She stated her weight has been relatively stable. Normal bowel movement. No melena, hematochezia, hematuria, hemoptysis, hematemesis or epistaxis and no fever or chills. PAST MEDICAL HISTORY: In addition to what is stated above in regard to her breast carcinoma: She has a history of hypertension and arthritis. HOME MEDICATION: Include aspirin 81 mg daily, atenolol 100 mg daily, Catapres 0.5 mg daily, Celexa 20 mg daily, Femara 2.5 mg daily. Naprosyn 500 mg b.i.d. Fellows 5/25 mg as needed. FAMILY HISTORY: For malignancy is negative. SURGICAL HISTORY: She had right mastectomy as stated, cholecystectomy, right knee replacement, and neck surgery. SOCIAL HISTORY: She smokes 1 pack of cigarettes daily. Alcohol as stated she drinks about 2 drinks daily. PHYSICAL EXAMINATION: She is alert, oriented x3. She does not appear to be in acute distress. Her vital signs are: Temperature 98.1, afebrile, pulse 62 regular, respirations 16, blood pressure 147/74. HEENT: Normocephalic, atraumatic. No obvious scleral icterus. NECK: Supple. No jugular venous distention. Chest equal expansion bilaterally. LUNGS: Clear to auscultation and percussion. Heart is regular rhythm. ABDOMEN: Soft. She has some tenderness in the left upper quadrant. No obvious organomegaly, masses or ascites. EXTREMITIES reveal no edema. SKIN no bruises, ecchymosis, petechiae. LYMPHATICS there are no peripherally enlarged cervical supraclavicular nodes. MUSCULOSKELETAL moving all extremities appropriately. No percussion tenderness in the neck, axilla, cervical pine, sternum. LABORATORY DATA: WBC are 8.2, hemoglobin 11.4, hematocrit is 11.4, platelets are 130. Sodium 135, potassium 3.8, chloride 111, CO2 is 18, BUN is 6, creatinine 1.13, CA 2729 is 21. CA-19- 9 is 36.8. AST is 69, ALT is 25, alkaline phosphatase 316, total bilirubin is 1.4. The lipase is 3173. IMPRESSION: 1. History of breast carcinoma with diagnostic and therapeutic circumstances stated above. 2. Acute pancreatitis significantly rising lipase. Recent CT scan revealed masslike density as stated above. However, this may represent inflammatory or possible complex cyst or pseudocyst or complex pseudocyst. 3. Right kidney lesion. This has been relatively stable compared to scan done in 2018. RECOMMENDATIONS: I discussed the CAT scan finding with the patient today. MRI of the abdomen already ordered. We will await the results. Three continue current management. Advised to refrain from alcohol completely. The above was discussed in detail with the patient. I have answered all questions. Thank you very much. ADRIANA / REI: [id number] /
[2020-07-22] MEDS: PIPERACILLIN-TAZOBACTAM 3.375 GM in SODIUM CHLORIDE 0.9% 100 ML IVPB SCH ×3 (04:34→20:42)
[2020-07-22] MEDS: THIAMINE 100 MG TAB PO SCH ×3 (06:43→17:12)
[2020-07-22] MEDS: HYDROmorphone 0.5 MG/0.5 ML SYRINGE IVP PRN (07:58)
[2020-07-22 08:17] LABS: Calcium 8.1 mg/dL (8.4-10.2)
[2020-07-22 08:25] LABS: Potassium 4.2 mmol/L (3.5-5.1)
[2020-07-22 08:26] LABS: HCT 38.8 % (34.0-46.0); HGB 12.6 gm/dL (11.4-16.0); Hypochromasia Slight; MCH 37.1 pg (25.0-35.0); MCHC 32.4 g/dL (31.0-37.0); MCV 114.4 fL (80.0-100.0); Macrocytosis Marked; Mean Platelet Volume 9.8; Platelet Count 132 k/uL (150-450); RBC 3.39 m/uL (3.80-5.40); RDW 14.7 % (11.5-15.5); WBC 8.4 k/uL (3.8-10.6)
[2020-07-22] MEDS: atenoloL 50 MG TAB PO SCH (09:35)
[2020-07-22] MEDS: cloNIDine HCL 0.2 MG TAB PO SCH ×2 (09:35→20:42)
[2020-07-22] MEDS: lisinopriL 5 MG TAB PO SCH (09:35)
[2020-07-22] MEDS: APIXABAN 5 MG TAB PO SCH ×2 (09:35→20:42)
[2020-07-22] MEDS: LETROZOLE 2.5 MG TAB PO SCH (09:35)
[2020-07-22] MEDS: PANTOPRAZOLE 40 MG/10 ML VIAL IVP SCH (09:36)
[2020-07-22 10:22] LABS: Band Neutrophils % 1 %; Eosinophils # (M) 0.08 k/uL (0-0.7); Lymphocytes # (M) 0.67 k/uL (1.0-4.8); Monocytes # (M) 0.59 k/uL (0-1.0); Neutrophils % (M) 83 %; Nucleated Red Blood Cells 0 /100 WBC (0-0); Total Cells Counted 100
--- NOTE | 2020-07-22 11:10 | P.PN ---
Subjective Progress Note Date: 07/21/20 Principal diagnosis: Abdominal pain, pancreatitis, pancreatic mass Patient is seen lying in bed no nausea or vomiting. She does feel that her abdominal pain is improving and is tolerating diet.. Objective - Vital Signs Vital signs: Vital Signs Temp 98.1 F 07/21/20 03:00 Pulse 65 07/21/20 03:00 Resp 18 07/21/20 03:00 BP 157/77 07/21/20 03:00 Pulse Ox 93 L 07/21/20 03:00 Intake & Output 07/20/20 07/21/20 07/21/20 18:59 06:59 18:59 Intake Total 582.858 229.608 Output Total 250 Balance 332.858 229.608 Weight 58.7 kg Intake: IV 100 Intake, IV Titration 232.858 129.608 Amount Heparin Sod,Pork in 0.45% 132.858 129.608 NaCl 25,000 unit In 0.45 % NaCl 1 250ml.bag @ 12 UNITS/KG/HR 6.532 mls/hr IV .Q24H JOEY Rx#: [id number] Piperacillin-Tazobactam 3 100 .375 gm In Sodium Chloride 0.9% 100 ml @ 25 mls/hr IVPB Q8H JOEY Rx#: [id number] Oral 350 Output: Urine 250 Other: # Voids 2 2 - Exam On physical examination, patient appears comfortable in no apparent distress. HEAD: Normocephalic, atraumatic. EYES: No scleral icterus. No conjunctival injection. MOUTH: No lesions, tongue midline. NECK: Trachea midline, no gross abnormalities. ABDOMEN: Soft, mildly tender to palpation. Bowel sounds are positive. No organomegaly. No guarding or rigidity. EXTREMITIES: No pedal edema. SKIN: No rashes, no jaundice. NEUROLOGIC: Alert and oriented x3. No focal deficits. - Labs CBC & Chem 7: 07/22/20 07:15 07/22/20 07:15 Labs: Abnormal Lab Results - Last 24 Hours (Table) 07/20/20 07/21/20 07/21/20 Range/Units 22:23 09:07 09:07 RBC 3.19 L (3.80-5.40) m/uL MCV 118.2 H (80.0-100.0) fL MCH 35.9 H (25.0-35.0) pg MCHC 30.4 L (31.0-37.0) g/dL Plt Count 130 L (150-450) k/uL Macrocytosis Marked A APTT 54.6 H (22.0-30.0) sec Sodium 135 L (137-145) mmol/L Chloride 111 H (98-107) mmol/L Carbon Dioxide 18 L (22-30) mmol/L BUN 19 H (7-17) mg/dL Creatinine 1.13 H (0.52-1.04) mg/dL Glucose 57 L (74-99) mg/dL Calcium 8.0 L (8.4-10.2) mg/dL Microbiology - Last 24 Hours (Table) 07/19/20 03:27 Blood Culture - Preliminary Blood No Growth after 48 hours Assessment and Plan (1) Pancreatitis Narrative/Plan: 69-year-old female with multiple medical comorbidities presented to the hospital with complaints of abdominal pain and was found to have elevation in lipase at [address] showing stranding consistent with pancreatitis. Currently pain is somewhat improved and she is tolerating diet. She does report daily alcohol use for the past 20 years approximately 3 cocktails daily. She did have some nausea and vomiting with her symptoms. Currently she is being admitted and treated for acute pancreatitis. CT also showed a possible fluid collection, hematoma or mass in the area of the pancreatic tail, gastric fundus and left adrenal with MRI ordered and surgical service point EGD for evaluation of stomach. Current Visit: Yes Status: Acute Code(s): K85.90 - ACUTE PANCREATITIS WITHOUT NECROSIS OR INFECTION, UNSP SNOMED Code(s): 05070979 (2) Abnormal CT of the abdomen Narrative/Plan: Computed tomography scan with findings of a masslike area in the pancreatic tail, gastric fundus and left adrenal with differential including hematoma, fluid collection or solid mass. Current Visit: Yes Status: Acute Code(s): R93.5 - ABN FINDINGS ON DX IMAGING OF ABD REGIONS, INC RETROPERITON SNOMED Code(s): 12935312228298877 Plan: Supportive care Okay for diet as tolerated Continue pain control Continue IV fluid hydration Alcohol abstinence Continue to monitor and treat for signs and symptoms of alcohol withdrawal Tumor markers showing only mild elevation of CA 199 and normal CEA MRI/MRCP suggestive of pancreatic pseudocyst, can have patient follow up with evidence endoscopy for EUS in the future or repeat MRI in 3 months Surgical service following and plan for EGD tomorrow for evaluation of gastric thickening on CT Thank you for allowing us to participate in the care of the patient we will continue to follow
--- NOTE | 2020-07-22 13:52 | P.PN ---
Subjective Progress Note Date: 07/22/20 Principal diagnosis: Abdominal pain, pancreatitis, pancreatic mass Patient is seen lying in bed no nausea or vomiting. The patient is tolerating her diet and feels that the abdominal pain is improved. Objective - Vital Signs Vital signs: Vital Signs Temp 98.4 F 07/22/20 08:00 Pulse 90 07/22/20 08:00 Resp 18 07/22/20 08:00 BP 127/70 07/22/20 08:00 Pulse Ox 96 07/22/20 08:00 Intake & Output 07/21/20 07/22/20 07/22/20 18:59 06:59 18:59 Intake Total 469.608 240 Balance 469.608 240 Weight 62.9 kg Intake: IV 100 Intake, IV Titration 129.608 Amount Heparin Sod,Pork in 0.45% 129.608 NaCl 25,000 unit In 0.45 % NaCl 1 250ml.bag @ 12 UNITS/KG/HR 6.532 mls/hr IV .Q24H [facility] Rx#: [id number] Oral 240 240 Other: Voiding Method Diaper Toilet Toilet Incontinent # Voids 3 1 - Exam On physical examination, patient appears comfortable in no apparent distress. HEAD: Normocephalic, atraumatic. EYES: No scleral icterus. No conjunctival injection. MOUTH: No lesions, tongue midline. NECK: Trachea midline, no gross abnormalities. ABDOMEN: Soft, mildly tender to palpation. Bowel sounds are positive. No organomegaly. No guarding or rigidity. EXTREMITIES: No pedal edema. SKIN: No rashes, no jaundice. NEUROLOGIC: Alert and oriented x3. No focal deficits. - Labs CBC & Chem 7: 07/22/20 07:15 07/22/20 07:15 Labs: Abnormal Lab Results - Last 24 Hours (Table) 07/21/20 07/21/20 07/21/20 Range/Units 09:07 16:58 17:17 RBC (3.80-5.40) m/uL MCV (80.0-100.0) fL MCH (25.0-35.0) pg Plt Count (150-450) k/uL Lymphocytes # (Manual) 0.66 L (1.0-4.8) k/uL Macrocytosis Sodium (137-145) mmol/L Chloride (98-107) mmol/L Carbon Dioxide (22-30) mmol/L BUN (7-17) mg/dL Creatinine (0.52-1.04) mg/dL POC Glucose (mg/dL) 69 L 64 L (75-99) mg/dL Calcium (8.4-10.2) mg/dL 07/21/20 07/22/20 07/22/20 Range/Units 17:47 07:15 07:15 RBC 3.39 L (3.80-5.40) m/uL MCV 114.4 H (80.0-100.0) fL MCH 37.1 H (25.0-35.0) pg Plt Count 132 L (150-450) k/uL Lymphocytes # (Manual) 0.67 L (1.0-4.8) k/uL Macrocytosis Marked A Sodium 135 L (137-145) mmol/L Chloride 108 H (98-107) mmol/L Carbon Dioxide 21 L (22-30) mmol/L BUN 18 H (7-17) mg/dL Creatinine 1.11 H (0.52-1.04) mg/dL POC Glucose (mg/dL) 126 H (75-99) mg/dL Calcium 8.1 L (8.4-10.2) mg/dL Microbiology - Last 24 Hours (Table) 07/19/20 03:27 Blood Culture - Preliminary Blood No Growth after 72 hours Assessment and Plan (1) Pancreatitis Narrative/Plan: 69-year-old female with multiple medical comorbidities presented to the hospital with complaints of abdominal pain and was found to have elevation in lipase at [address] showing stranding consistent with pancreatitis. Currently pain is somewhat improved and she is tolerating diet. She does report daily alcohol use for the past 20 years approximately 3 cocktails daily. She did have some nausea and vomiting with her symptoms. Currently she is being admitted and treated for acute pancreatitis. CT also showed a possible fluid collection, hematoma or mass in the area of the pancreatic tail, gastric fundus and left adrenal with MRI ordered and surgical service point EGD for evaluation of stomach. EGD performed by the surgical service in evaluation significant only for ellen ritis. MRI was performed and significant for pancreatic cysts likely pseudocysts with no distinct mass noted. Current Visit: Yes Status: Acute Code(s): K85.90 - ACUTE PANCREATITIS WITHOUT NECROSIS OR INFECTION, UNSP SNOMED Code(s): 39756408 (2) Abnormal CT of the abdomen Narrative/Plan: Computed tomography scan with findings of a masslike area in the pancreatic tail, gastric fundus and left adrenal with differential including hematoma, fluid collection or solid mass. EGD negative for any gastric mass with only findings of gastritis. MRI performed in evaluation showed possible fluid collection versus hematoma, pancreatic cyst for also noted likely benign in nature. Current Visit: Yes Status: Acute Code(s): R93.5 - ABN FINDINGS ON DX IMAGING OF ABD REGIONS, INC RETROPERITON SNOMED Code(s): 06606454528620108 Plan: Supportive care Okay for diet as tolerated Continue pain control Continue IV fluid hydration Alcohol abstinence Continue to monitor and treat for signs and symptoms of alcohol withdrawal Tumor markers showing only mild elevation of CA 199 and normal CEA MRI/MRCP suggestive of pancreatic pseudocyst, can have patient follow up with advanced endoscopy for EUS in the future or repeat MRI in 3 months Surgical service following and plan for EGD tomorrow for evaluation of gastric thickening on CT Thank you for allowing us to participate in the care of the patient we will continue to follow
--- NOTE | 2020-07-22 13:53 | P.PN ---
Progress Note - Text Progress Note Date: 07/22/20 Patient states he feels better. On exam vital signs are stable. Abdomen soft. There is no significant tenderness in the epigastric and left upper quadrant. Resolving pancreatic Bartolo. Patient was discharged home tomorrow.
--- NOTE | 2020-07-22 15:05 | P.PN ---
Subjective Progress Note Date: 07/22/20 CHIEF COMPLAINT: afib HISTORY OF PRESENT ILLNESS: Patient examined at the bedside. She denies chest pain or pressure. Denies shortness of breath. She reports mild abdominal pain. PHYSICAL EXAM: VITAL SIGNS: Reviewed. GENERAL: Well-developed in no acute distress. HEENT: Head is normocephalic. Pupils are equal, round. Sclerae anicteric. Mucous membranes of the mouth are moist. Neck supple. No JVD or thyromegaly LUNGS: Respirations even and unlabored. Lungs essentially clear to auscultation bilaterally. HEART: Regular rate and rhythm. S1 and S2 heard. EXTREMITIES: Normal range of motion. No clubbing or cyanosis. Peripheral pul ses intact. No lower extremity edema NEUROLOGIC: Awake and alert. Oriented x 3. ASSESSMENT: Acute pancreatitis Status post EGD revealing mild gastritis New-onset atrial fibrillation with RVR, currently maintaining sinus mechanism Hypertension History of breast cancer Nicotine dependence, patient smokes 1 pack per day Daily alcohol use PLAN: Continue current cardiac medications Continue telemetry monitoring Continue Eliquis Further recommendations pending patient's course Nurse practitioner note has been reviewed by physician. Signing provider agrees with the documented findings, assessment, and plan of care. Objective - Vital Signs Vital signs: Vital Signs Temp 97.6 F 07/22/20 12:00 Pulse 122 H 07/22/20 14:00 Resp 18 07/22/20 14:00 BP 124/74 07/22/20 12:00 Pulse Ox 94 L 07/22/20 12:00 Intake & Output 07/21/20 07/22/20 07/22/20 18:59 06:59 18:59 Intake Total 469.608 240 Balance 469.608 240 Weight 62.9 kg Intake: IV 100 Intake, IV Titration 129.608 Amount Heparin Sod,Pork in 0.45% 129.608 NaCl 25,000 unit In 0.45 % NaCl 1 250ml.bag @ 12 UNITS/KG/HR 6.532 mls/hr IV .Q24H [facility] Rx#: [id number] Oral 240 240 Other: Voiding Method Diaper Toilet Toilet Incontinent # Voids 3 1 - Labs CBC & Chem 7: 07/22/20 07:15 07/22/20 07:15 Labs: Abnormal Lab Results - Last 24 Hours (Table) 07/21/20 07/21/20 07/21/20 Range/Units 16:58 17:17 17:47 RBC (3.80-5.40) m/uL MCV (80.0-100.0) fL MCH (25.0-35.0) pg Plt Count (150-450) k/uL Lymphocytes # (Manual) (1.0-4.8) k/uL Macrocytosis Sodium (137-145) mmol/L Chloride (98-107) mmol/L Carbon Dioxide (22-30) mmol/L BUN (7-17) mg/dL Creatinine (0.52-1.04) mg/dL POC Glucose (mg/dL) 69 L 64 L 126 H (75-99) mg/dL Calcium (8.4-10.2) mg/dL 07/22/20 07/22/20 Range/Units 07:15 07:15 RBC 3.39 L (3.80-5.40) m/uL MCV 114.4 H (80.0-100.0) fL MCH 37.1 H (25.0-35.0) pg Plt Count 132 L (150-450) k/uL Lymphocytes # (Manual) 0.67 L (1.0-4.8) k/uL Macrocytosis Marked A Sodium 135 L (137-145) mmol/L Chloride 108 H (98-107) mmol/L Carbon Dioxide 21 L (22-30) mmol/L BUN 18 H (7-17) mg/dL Creatinine 1.11 H (0.52-1.04) mg/dL POC Glucose (mg/dL) (75-99) mg/dL Calcium 8.1 L (8.4-10.2) mg/dL Microbiology - Last 24 Hours (Table) 07/19/20 03:27 Blood Culture - Preliminary Blood No Growth after 72 hours
[2020-07-22] MEDS: SODIUM CHLORIDE 0.9% 1,000 ML IV SCH (17:04)
[2020-07-22] MEDS: HYDROcodone/APAP 5-325MG 1 EACH TAB PO PRN (17:12)
--- NOTE | 2020-07-22 20:02 | P.PN ---
Subjective This is a pleasant 69 years old female with multiple medical problems as below. She is a patient of Dr. Rivers. She presents because of one-day history of upper abdominal pain, she had this pain for 1 week as mild but More severe yesterday so she decided to come to the hospital, her pain is in the epigastric and left upper quadrant going to the back. Prep like 8/10 in severity when she came in, resolved significantly with Dilaudid. Enterprise like sharp associated with loose bowel movement and vomited 3 times. She smokes about 1 pack per day, she was counseled and she agrees to quit and she agrees to the nicotine patch She drinks about 2 cups of coffee feels each night. She denies illicit drugs Vitas looks stable however blood pressure on the high side 182/93 On admission Showing leukocytosis of 14.9 K, rest of CBC is unremarkable. BMP shows sodium 133, potassium 3.4, creatinine is within the reference range of 0.9 with GFR of 7. Her lactic acid came back to normal. Urine analysis is no suspicious of infection Elevated lipase at 3173 CT of the abdomen and pelvis: Pancreatitis, Masslike density inseparable to the pancreatic tail, 9 cm right kidney lesion, gastric and areas of small and large bowel thickening correlates clinically regarding inflammatory/infectious process. EKG showed atrial fibrillation with RVR at 117 In the emergency room patient was started on Dilaudid, IV fluid with normal saline at 130 mL/h, and Zosyn. Also started on heparin drip, Started on Ativan as needed same GI, surgery and cartilage team were consulted 07/20/2020 Patient is awake, she still complaining of from upper abdominal pain, mainly on the left side related to her pancreatitis. She remains on normal saline at 1:30 milliliters per hour with pain management. She is also on empiric antibiotics with elevated pro-calcitonin EGD will be done in the morning by surgery team to evaluate for gastric wall thickening MRI of the pancreas is ordered by GI team to assess for pancreatic mass. CA 19-9 NTG and is elevated at 36.8 but CEA is normal at 3.0 Patient will need biopsy of her right kidney mass per urology on the case Continue with CIWA protocol and vitamins. Cardiology team R following the case for new onset A. fib with RVR, currently on heparin drip and switched to oral when appropriate. Rate control 07/21/2020 Patient still complaining of from left flank or left lower chest pain, She is tolerating liquid diet well and asked to be advanced. EGD: Showing antral gastritis, status post biopsy Today her heparin drip was switched to Eliquis per cardiology recommendation MRI of the pancreas showing complex mass of the lesser sac is more likely pseudocyst with hemorrhage per radiologist which is unchanged from 07/19/20 making low suspicion of malignancy per radiologist also has left lower lobe infiltrate and subsequent of the tail of the pancreas Privilege team is recommending biopsy for her right kidney mass Today I discussed the case with Hazel from oncology and a consult was placed for them as she is known to their service for history of breast cancer 07/22/2020 Patient pain mainly in the lateral Lower chest rather than in the upper abdomen today, mostly related to her left lower lobe pneumonia . Also patient admits that she has some difficulty breathing presents this admission however she confirmed to me that her condition is improving with Zosyn. No leukocytosis, no fever Patient informed to follow up on the biopsy for her antral gastritis, risk of malignancy explained and she understands Also MRI showing pseudocyst of the lesser sac and the tail of the pancreas and with a recommendation to repeat MRI in 3 months or EUS per GI service Also patient instructed that she will need biopsy for her right kidney mass and she verbalized understanding and acceptance fall recommendations. However clinically she is doing well, she is not in distress, she is fully awake and oriented, she is active, no significant dyspnea, no significant coughing, abdominal pain is resolved significantly and she is tolerating regular diet. Repeat chest x-ray in the morning Possible discharge in 24-48 hours Objective - Vital Signs Vital signs: Vital Signs Temp 97.6 F 07/22/20 12:00 Pulse 122 H 07/22/20 14:00 Resp 18 07/22/20 14:00 BP 124/74 07/22/20 12:00 Pulse Ox 94 L 07/22/20 12:00 Intake & Output 07/21/20 07/22/20 07/22/20 18:59 06:59 18:59 Intake Total 469.608 240 Balance 469.608 240 Weight 62.9 kg Intake: IV 100 Intake, IV Titration 129.608 Amount Heparin Sod,Pork in 0.45% 129.608 NaCl 25,000 unit In 0.45 % NaCl 1 250ml.bag @ 12 UNITS/KG/HR 6.532 mls/hr IV .Q24H [facility] Rx#: [id number] Oral 240 240 Other: Voiding Method Diaper Toilet Toilet Incontinent # Voids 3 1 - Exam GENERAL: The patient is alert and oriented x3, not in any acute distress. Well developed, well nourished. HEENT: Pupils are round and equally reacting to light. EOMI. No scleral icterus. No conjunctival pallor. Normocephalic, atraumatic. No pharyngeal erythema. No thyromegaly. CARDIOVASCULAR: S1 and S2 present. No murmurs, rubs, or gallops. PULMONARY: Chest is clear to auscultation, no wheezing or crackles. ABDOMEN: Soft, mild epigastric tenderness with no rebound tenderness, nondistended, normoactive bowel sounds. No palpable organomegaly. MUSCULOSKELETAL: No joint swelling or deformity. EXTREMITIES: No cyanosis, clubbing, or pedal edema. NEUROLOGICAL: Gross neurological examination did not reveal any focal deficits. SKIN: No rashes. No petechiae - Labs CBC & Chem 7: 07/22/20 07:15 07/22/20 07:15 Labs: Abnormal Lab Results - Last 24 Hours (Table) 07/21/20 07/22/20 07/22/20 Range/Units 17:47 07:15 07:15 RBC 3.39 L (3.80-5.40) m/uL MCV 114.4 H (80.0-100.0) fL MCH 37.1 H (25.0-35.0) pg Plt Count 132 L (150-450) k/uL Lymphocytes # (Manual) 0.67 L (1.0-4.8) k/uL Macrocytosis Marked A Sodium 135 L (137-145) mmol/L Chloride 108 H (98-107) mmol/L Carbon Dioxide 21 L (22-30) mmol/L BUN 18 H (7-17) mg/dL Creatinine 1.11 H (0.52-1.04) mg/dL POC Glucose (mg/dL) 126 H (75-99) mg/dL Calcium 8.1 L (8.4-10.2) mg/dL Microbiology - Last 24 Hours (Table) 07/19/20 03:27 Blood Culture - Preliminary Blood No Growth after 72 hours Assessment and Plan Assessment: -Acute pancreatitis with pseudocyst continue with pain medication, IV fluids . Advance diet to regular as tolerated. Patient was started on Zosyn empirically. -Masslike density inseparable to the pancreatic tail, MRI showing pseudocyst of the tail of the pancreas, pseudocyst with hemorrhage and the lesser sac -EGD: Showing antral gastritis, status post biopsy -9 cm right kidney lesion, Suggest neoplasm as per radiologist, we will consult urology -Alcohol abuse, continue with CIWA protocol with Ativan as needed and timing -Nicotine dependence, patient is counseled, nicotine patch is offered -Atrial fibrillation with RVR, present on admission. Ejection fraction 55-60%. Cardiology on the case. Started on Eliquis Patient is currently on atenolol and clonidine -History of breast Cancer, bone scan from 10/22/2019 showing no evidence of bone metastasis -Hypertension, uncontrolled -Hyperlipidemia -Anxiety, no connective tissue DVT prophylaxis: Heparin GI prophylaxis: Protonix Prognosis is guarded
[2020-07-23] MEDS: HYDROcodone/APAP 5-325MG 1 EACH TAB PO PRN (01:16)
[2020-07-23] MEDS: SODIUM CHLORIDE 0.9% 1,000 ML IV SCH ×2 (01:58→08:58)
[2020-07-23] MEDS: PIPERACILLIN-TAZOBACTAM 3.375 GM in SODIUM CHLORIDE 0.9% 100 ML IVPB SCH ×3 (04:03→20:36)
[2020-07-23] MEDS: THIAMINE 100 MG TAB PO SCH ×2 (06:22→18:22)
--- NOTE | 2020-07-23 07:52 | P.PN ---
Subjective Progress Note Date: 07/23/20 The patient is a 69 female alcoholic in the hospital with a pancreatic pseudocyst, LLL pneumonia and a new right renal lesion worrisome for a malignancy. She has a known history of metastatic breast ca. The question is whether this lesion is primary or metastatic. She is to get an mri in 3 weeks. We will see what it shows But she may need a biopsy of this lesion to clarify treatment I will need to see her in the office after her mri. Objective - Vital Signs Vital signs: Vital Signs Temp 98.1 F 07/23/20 03:10 Pulse 64 07/23/20 03:10 Resp 18 07/23/20 03:10 BP 169/77 07/23/20 03:10 Pulse Ox 100 07/23/20 03:10 Intake & Output 07/22/20 07/23/20 07/23/20 18:59 06:59 18:59 Intake Total 720 Balance 720 Intake: Oral 720 Other: Voiding Method Toilet Toilet # Voids 3 - Labs CBC & Chem 7: 07/22/20 07:15 07/22/20 07:15 Labs: Abnormal Lab Results - Last 24 Hours (Table) 07/22/20 07/22/20 Range/Units 07:15 07:15 RBC 3.39 L (3.80-5.40) m/uL MCV 114.4 H (80.0-100.0) fL MCH 37.1 H (25.0-35.0) pg Plt Count 132 L (150-450) k/uL Lymphocytes # (Manual) 0.67 L (1.0-4.8) k/uL Macrocytosis Marked A Sodium 135 L (137-145) mmol/L Chloride 108 H (98-107) mmol/L Carbon Dioxide 21 L (22-30) mmol/L BUN 18 H (7-17) mg/dL Creatinine 1.11 H (0.52-1.04) mg/dL Calcium 8.1 L (8.4-10.2) mg/dL Microbiology - Last 24 Hours (Table) 07/19/20 03:27 Blood Culture - Preliminary Blood No Growth after 96 hours
--- NOTE | 2020-07-23 08:31 | XR ---
EXAMINATION TYPE: XR chest 1V DATE OF EXAM: 07/23/2020 COMPARISON: 08/31/2018 INDICATION: Left lower lobe pneumonia TECHNIQUE: Single frontal view of the chest is obtained. FINDINGS: The heart size is normal. The pulmonary vasculature is normal. There is a consolidation in the left lung base. Small left pleural effusion is present. Surgical clip s are in the right breast IMPRESSION: 1. Left lower lobe infiltrate and effusion. Correlate for pneumonia. Follow-up is recommended.
[2020-07-23] MEDS: lisinopriL 5 MG TAB PO SCH (08:57)
[2020-07-23] MEDS: PANTOPRAZOLE 40 MG TABLET PO SCH (08:57)
[2020-07-23] MEDS: APIXABAN 5 MG TAB PO SCH (08:57)
[2020-07-23] MEDS: atenoloL 50 MG TAB PO SCH (08:57)
[2020-07-23] MEDS: cloNIDine HCL 0.2 MG TAB PO SCH ×2 (08:57→20:35)
[2020-07-23] MEDS: LETROZOLE 2.5 MG TAB PO SCH (08:58)
[2020-07-23 10:12] LABS: Basophils % (A) 0 %; Eosinophils # (A) 0.2 k/uL (0-0.7); Eosinophils % (A) 4 %; HCT 36.9 % (34.0-46.0); HGB 11.3 gm/dL (11.4-16.0); Hypochromasia Slight; Lymphocytes # (A) 0.8 k/uL (1.0-4.8); Lymphocytes % (A) 12 %; MCH 35.7 pg (25.0-35.0); MCHC 30.6 g/dL (31.0-37.0); MCV 116.5 fL (80.0-100.0); Macrocytosis Marked; Monocytes # (A) 0.5 k/uL (0-1.0); Monocytes % (A) 8 %; Neutrophils # (A) 4.8 k/uL (1.3-7.7); Neutrophils % (A) 73 %; Platelet Count 182 k/uL (150-450); RBC 3.16 m/uL (3.80-5.40); RDW 15.2 % (11.5-15.5); WBC 6.5 k/uL (3.8-10.6)
[2020-07-23 10:17] LABS: Albumin 2.1 g/dL (3.5-5.0); Calcium 8.1 mg/dL (8.4-10.2); Magnesium 1.5 mg/dL (1.6-2.3); Potassium 3.4 mmol/L (3.5-5.1); Total Bilirubin 0.7 mg/dL (0.2-1.3); Total Protein 4.8 g/dL (6.3-8.2)
--- NOTE | 2020-07-23 11:11 | P.PN ---
Subjective Progress Note Date: 07/23/20 This is a 69-year-old female with past medical history significant for breast cancer, hypertension, seen in consultation by Dr. Salcido. Originally the patient was seen in consultation because of atrial fibrillation, she's been remaining in a normal sinus rhythm. Initially presented to the hospital with symptoms of left-sided abdominal pain. She was seen and examined this morning, states that last night she developed a fairly sudden onset of shortness of breath which she described as severe. Patient was placed on oxygen, but the time of my examination this morning she was quite wheezy. Her blood pressure 130/70 with a heart rate in the 60s, 100% on 2 L of oxygen. Blood cell count 6.5, hemoglobin 11.3, platelet count 182. Sodium 135, potassium 3.4, BUN 16, creatinine 1.2. Magnesium 1.5. Chest x-ray performed today revealed the left lower lobe infiltrate and effusion. Correlate for pneumonia. Her pro calcitonin level on the was 0.45. Objective - Vital Signs Vital signs: Vital Signs Temp 97.7 F 07/23/20 08:00 Pulse 69 07/23/20 08:00 Resp 18 07/23/20 08:00 BP 130/75 07/23/20 08:00 Pulse Ox 100 07/23/20 08:00 Intake & Output 07/22/20 07/23/20 07/23/20 18:59 06:59 18:59 Intake Total 720 340 Balance 720 340 Intake: Intake, IV Titration 100 Amount Piperacillin-Tazobactam 3 100 .375 gm In Sodium Chloride 0.9% 100 ml @ 25 mls/hr IVPB Q8H [facility] Rx#: [id number] Oral 720 240 Other: Voiding Method Toilet Toilet # Voids 3 1 - Exam PHYSICAL EXAMINATION: GENERAL: 79-year-old female in no acute distress at the time of my examination HEENT: Head is atraumatic, normocephalic. Pupils equal, round. Sclera anicteric. Conjunctiva are clear. Mucous membranes of the mouth are moist. Neck is supple. There is no elevated jugular venous pressure. No carotid bruit is heard. HEART EXAMINATION: Heart S1, S2 normal. No murmur or gallop heard. CHEST EXAMINATION: Lungs reveal expiratory wheezing throughout. ABDOMEN: Soft, nontender. Bowel sounds are heard. No organomegaly noted. EXTREMITIES: 2+ peripheral pulses with no evidence of peripheral edema and no calf tenderness noted. NEUROLOGIC patient is awake, alert and oriented 3 . - Labs CBC & Chem 7: 07/23/20 08:37 07/23/20 08:37 Labs: Abnormal Lab Results - Last 24 Hours (Table) 07/23/20 07/23/20 Range/Units 08:37 08:37 RBC 3.16 L (3.80-5.40) m/uL Hgb 11.3 L (11.4-16.0) gm/dL MCV 116.5 H (80.0-100.0) fL MCH 35.7 H (25.0-35.0) pg MCHC 30.6 L (31.0-37.0) g/dL Lymphocytes # 0.8 L (1.0-4.8) k/uL Macrocytosis Marked A Sodium 135 L (137-145) mmol/L Potassium 3.4 L (3.5-5.1) mmol/L Creatinine 1.21 H (0.52-1.04) mg/dL Calcium 8.1 L (8.4-10.2) mg/dL Magnesium 1.5 L (1.6-2.3) mg/dL Alkaline Phosphatase 179 H (38-126) U/L Total Protein 4.8 L (6.3-8.2) g/dL Albumin 2.1 L (3.5-5.0) g/dL Microbiology - Last 24 Hours (Table) 07/19/20 03:27 Blood Culture - Preliminary Blood No Growth after 96 hours Assessment and Plan Plan: Assessment and plan #1 abdominal discomfort with evidence of acute pancreatitis #2 new-onset atrial fibrillation, paroxysmal, remaining in normal sinus rhythm #3 hypertension #4 history of breast cancer #5 nicotine dependence #6 daily alcohol use #7 hypokalemia, hypomagnesemia #8 fairly sudden onset of shortness of breath with evidence of pneumonia on chest x-ray Plan We will replace the potassium and magnesium. We will consult with pulmonary regarding the possible pneumonia. Rule out COVID-19. DNP note has been reviewed, I agree with a documented findings and plan of care. Patient was seen and examined.
--- NOTE | 2020-07-23 11:37 | P.PN ---
Subjective Progress Note Date: 07/23/20 CHIEF COMPLAINT: Abdominal pain HISTORY OF PRESENT ILLNESS: Patient is being followed for her pancreatitis. Patient reports she is feeling better. She feels ready for discharge. Patient's abdominal pain has shown improvement. She is tolerating regular diet. Patient reports some pain on her right side. But the pain has improved greatly since admission. She denies any nausea or vomiting. She is afebrile. WBC is 8.4. Chest x-ray shows left lower lobe infiltrate and effusion. Correlate for pneu monia. Patient will be evaluated by pulmonary service PHYSICAL EXAM: VITAL SIGNS: Reviewed. GENERAL: Well-developed in no acute distress. HEENT: No sclera icterus. Extraocular movements grossly intact. Moist buccal mucosa. Head is atraumatic, normocephalic. ABDOMEN: Soft. Nondistended. Nontender. NEUROLOGIC: Alert and oriented. Cranial nerves II through XII grossly intact. ASSESSMENT: 1. Acute alcoholic pancreatitis with pseudocyst. Pancreatitis has shown improvement 2. New onset of atrial fibrillation followed by cardiology 3. Right renal lesion followed by urology 4. Status post EGD during this admission showing gastritis PLAN: -Continue regular diet -Continue supportive care -Patient follow-up with Dr. Massey in 1 week in the office after discharge Physician Emergency Management System Director note has been reviewed by physician. Signing provider agrees with the documented findings, assessment, and plan of care. Objective - Vital Signs Vital signs: Vital Signs Temp 97.7 F 07/23/20 08:00 Pulse 69 07/23/20 08:00 Resp 18 07/23/20 08:00 BP 130/75 07/23/20 08:00 Pulse Ox 100 07/23/20 08:00 Intake & Output 07/22/20 07/23/20 07/23/20 18:59 06:59 18:59 Intake Total 720 340 Balance 720 340 Intake: Intake, IV Titration 100 Amount Piperacillin-Tazobactam 3 100 .375 gm In Sodium Chloride 0.9% 100 ml @ 25 mls/hr IVPB Q8H [facility] Rx#: [id number] Oral 720 240 Other: Voiding Method Toilet Toilet # Voids 3 1 - Labs CBC & Chem 7: 07/23/20 08:37 07/23/20 08:37 Labs: Abnormal Lab Results - Last 24 Hours (Table) 07/23/20 07/23/20 Range/Units 08:37 08:37 RBC 3.16 L (3.80-5.40) m/uL Hgb 11.3 L (11.4-16.0) gm/dL MCV 116.5 H (80.0-100.0) fL MCH 35.7 H (25.0-35.0) pg MCHC 30.6 L (31.0-37.0) g/dL Lymphocytes # 0.8 L (1.0-4.8) k/uL Macrocytosis Marked A Sodium 135 L (137-145) mmol/L Potassium 3.4 L (3.5-5.1) mmol/L Creatinine 1.21 H (0.52-1.04) mg/dL Calcium 8.1 L (8.4-10.2) mg/dL Magnesium 1.5 L (1.6-2.3) mg/dL Alkaline Phosphatase 179 H (38-126) U/L Total Protein 4.8 L (6.3-8.2) g/dL Albumin 2.1 L (3.5-5.0) g/dL Microbiology - Last 24 Hours (Table) 07/19/20 03:27 Blood Culture - Preliminary Blood No Growth after 96 hours
[2020-07-23] MEDS ORDERED: IPRATROPIUM-ALBUTEROL 3 ML NEB INHALATION PRN ×2 (12:03)
[2020-07-23 12:07] LABS: Glucose,Whole Blood 103 mg/dL (75-99)
[2020-07-23] MEDS: POTASSIUM CHLORIDE ER 20 MEQ TAB.ER PO SCH ×3 (13:29→18:22)
[2020-07-23] MEDS: MAGNESIUM SULFATE-D5W PMX 1 GM in DEXTROSE/WATER 1 100ML.BAG IVPB SCH ×2 (13:29→14:57)
--- NOTE | 2020-07-23 13:40 | US ---
EXAMINATION TYPE: US chest DATE OF EXAM: 07/23/2020 COMPARISON: x-ray 07/23/2020 CLINICAL HISTORY: Markings for thoracentesis by pulmonary staff. TECHNIQUE: Targeted ultrasound of the posterior lower bilateral hemithoraces EXAM MEASUREMENTS: Right Pleural Effusion pocket size: 6.9 cm Right skin surface to fluid distance: 1.7 cm Left Pleural Effusion pocket size: 8.7 cm Left skin surface to fluid distance: 2.2 cm Right side marked for possible thoracentesis outside the dept. Right fluid pocket moved with respirat ion Left side marked for possible thoracentesis outside the dept. Pulmonologists are able to review the images in the patient?s EMR. IMPRESSIONS: 1. Right pleural effusion
[2020-07-23] MEDS ORDERED: FUROSEMIDE 10 MG/ML 10 ML VIAL IV STA (14:17)
--- NOTE | 2020-07-23 15:10 | P.PN ---
Subjective Progress Note Date: 07/23/20 Principal diagnosis: Abdominal pain, pancreatitis, pancreatic mass This is a 69-year-old female patient who came in with epigastric pain. She is found to have pancreatitis a computed tomography scan with possible pancreatic mass. She does have a history of alcohol abuse approximately 3 drinks daily. He denies ever having pancreatitis in the past. She underwent an MRI/MRCP of the pancreas which showed there was a mix signal complex mass in the lesser sac and could be a pseudocyst with hemorrhage appears to be unchanged compared to the recent computed tomography scan, there is low suspicion of a tumor however tumor is not entirely excluded. There is abdominal ascites there is a cystic mass posterior tail of the pancreas that is likely pseudocyst and unchanged compared to recent computed tomography scan. Patient states her pain is improved, she denies any nausea or vomiting. She is tolerating a regular diet. She is also status post upper endoscopy which revealed gastritis. She had a normal CEA with a mildly elevated CA-19-9. Objective - Vital Signs Vital signs: Vital Signs Temp 97.7 F 07/23/20 08:00 Pulse 69 07/23/20 08:00 Resp 18 07/23/20 08:00 BP 130/75 07/23/20 08:00 Pulse Ox 100 07/23/20 08:00 Intake & Output 07/22/20 07/23/20 07/23/20 18:59 06:59 18:59 Intake Total 720 460 Balance 720 460 Intake: Intake, IV Titration 100 Amount Piperacillin-Tazobactam 3 100 .375 gm In Sodium Chloride 0.9% 100 ml @ 25 mls/hr IVPB Q8H [facility] Rx#: [id number] Oral 720 360 Other: Voiding Method Toilet Toilet # Voids 3 1 - Exam General appearance: The patient is alert, oriented, in no acute distress. HET: Head is normocephalic and atraumatic. Conjunctiva pink. Sclera anicteric. Neck: Supple without lymphadenopathy. Abdomen: Soft, nontender, nondistended with bowel sounds. No guarding or rigidity. Extremities: Normal skin color and turgor. No pedal edema Neurological: No focal deficits. Alert and oriented 3. - Labs CBC & Chem 7: 07/23/20 08:37 07/23/20 08:37 Labs: Abnormal Lab Results - Last 24 Hours (Table) 07/23/20 07/23/20 07/23/20 Range/Units 08:37 08:37 12:04 RBC 3.16 L (3.80-5.40) m/uL Hgb 11.3 L (11.4-16.0) gm/dL MCV 116.5 H (80.0-100.0) fL MCH 35.7 H (25.0-35.0) pg MCHC 30.6 L (31.0-37.0) g/dL Lymphocytes # 0.8 L (1.0-4.8) k/uL Macrocytosis Marked A Sodium 135 L (137-145) mmol/L Potassium 3.4 L (3.5-5.1) mmol/L Creatinine 1.21 H (0.52-1.04) mg/dL POC Glucose (mg/dL) 103 H (75-99) mg/dL Calcium 8.1 L (8.4-10.2) mg/dL Magnesium 1.5 L (1.6-2.3) mg/dL Alkaline Phosphatase 179 H (38-126) U/L Total Protein 4.8 L (6.3-8.2) g/dL Albumin 2.1 L (3.5-5.0) g/dL Microbiology - Last 24 Hours (Table) 07/19/20 03:27 Blood Culture - Preliminary Blood No Growth after 96 hours Assessment and Plan (1) Pancreatitis Narrative/Plan: 69-year-old female with multiple medical comorbidities presented to the hospital with complaints of abdominal pain and was found to have elevation in lipase at [address] showing stranding consistent with pancreatitis. Currently pain is somewhat improved and she is tolerating diet. She does report daily alcohol use for the past 20 years approximately 3 cocktails daily. She did have some nausea and vomiting with her symptoms. Currently she is being admitted and treated for acute pancreatitis. CT also showed a possible fluid collection, hematoma or mass in the area of the pancreatic tail, gastric fundus and left adrenal with MRI ordered and surgical service point EGD for evaluation of stomach. EGD performed by the surgical service in evaluation significant only for gastritis. MRI was performed and significant for pancreatic cysts likely pseudocysts with no distinct mass noted. Current Visit: Yes Status: Acute Code(s): K85.90 - ACUTE PANCREATITIS WITHOUT NECROSIS OR INFECTION, UNSP SNOMED Code(s): 83518613 (2) Abnormal CT of the abdomen Narrative/Plan: Computed tomography scan with findings of a masslike area in the pancreatic tail, gastric fundus and left adrenal with differential including hematoma, fluid collection or solid mass. EGD negative for any gastric mass with only findings of gastritis. MRI performed in evaluation showed possible fluid collection versus hematoma, pancreatic cyst for also noted likely benign in nature. Current Visit: Yes Status: Acute Code(s): R93.5 - ABN FINDINGS ON DX IMAGING OF ABD REGIONS, INC RETROPERITON SNOMED Code(s): 02017159598435030 Plan: Supportive care Okay for diet as tolerated Continue pain control Continue IV fluid hydration Alcohol abstinence Continue to monitor and treat for signs and symptoms of alcohol withdrawal Tumor markers showing only mild elevation of CA 199 and normal CEA MRI/MRCP suggestive of pancreatic pseudocyst, can have patient follow up with advanced endoscopy for EUS in the future or repeat MRI in 3 months Surgical service following, and is post upper endoscopy Thank you for allowing us to participate in the care of the patient we will continue to follow Dr. Cm Wheeler I agree with the dictator's note, documented as a scribe by Edwin EPPERSON.
[2020-07-23] MEDS: IPRATROPIUM-ALBUTEROL 3 ML NEB INHALATION SCH ×2 (16:14→20:54)
[2020-07-23 16:54] LABS: Glucose,Whole Blood 86 mg/dL (75-99)
--- NOTE | 2020-07-23 18:49 | P.PN ---
Subjective Progress Note Date: 07/23/20 Principal diagnosis: New Pancreatic mass/Gastritis MRI Abdomen reviewed, Chest xray reviewed and discussed with Dtr. Patients labs are safe range. She is a little more SOB today. Objective - Vital Signs Vital signs: Vital Signs Temp 97.7 F 07/23/20 08:00 Pulse 68 07/23/20 16:22 Resp 18 07/23/20 14:00 BP 150/71 07/23/20 12:00 Pulse Ox 92 L 07/23/20 12:00 Intake & Output 07/22/20 07/23/20 07/23/20 18:59 06:59 18:59 Intake Total 720 760 Balance 720 760 Intake: Intake, IV Titration 400 Amount Magnesium Sulfate-D5w Pmx 200 1 gm In Dextrose/Water 1 100ml.bag @ 100 mls/hr IVPB Q1H [facility] Rx#: [id number] Piperacillin-Tazobactam 3 200 .375 gm In Sodium Chloride 0.9% 100 ml @ 25 mls/hr IVPB Q8H [facility] Rx#: [id number] Oral 720 360 Other: Voiding Method Toilet Toilet # Voids 3 1 - Constitutional General appearance: Present: cooperative, no acute distress - EENT Eyes: Present: EOMI, PERRLA ENT: Present: NA/AT, normal oropharynx - Respiratory Respiratory: left: rhonchi, bilateral: diminished - Cardiovascular Rhythm: regular - Gastrointestinal General gastrointestinal: Present: distended, soft, tenderness - Integumentary Integumentary: Present: pale - Neurologic Neurologic: Present: CNII-XII intact - Musculoskeletal Musculoskeletal: Present: generalized weakness, strength equal bilaterally - Psychiatric Psychiatric: Present: A&O x's 3, appropriate affect - Labs CBC & Chem 7: 07/23/20 08:37 07/24/20 08:16 Labs: Abnormal Lab Results - Last 24 Hours (Table) 07/23/20 07/23/20 07/23/20 Range/Units 08:37 08:37 12:04 RBC 3.16 L (3.80-5.40) m/uL Hgb 11.3 L (11.4-16.0) gm/dL MCV 116.5 H (80.0-100.0) fL MCH 35.7 H (25.0-35.0) pg MCHC 30.6 L (31.0-37.0) g/dL Lymphocytes # 0.8 L (1.0-4.8) k/uL Macrocytosis Marked A Sodium 135 L (137-145) mmol/L Potassium 3.4 L (3.5-5.1) mmol/L Creatinine 1.21 H (0.52-1.04) mg/dL POC Glucose (mg/dL) 103 H (75-99) mg/dL Calcium 8.1 L (8.4-10.2) mg/dL Magnesium 1.5 L (1.6-2.3) mg/dL Alkaline Phosphatase 179 H (38-126) U/L Total Protein 4.8 L (6.3-8.2) g/dL Albumin 2.1 L (3.5-5.0) g/dL Microbiology - Last 24 Hours (Table) 07/19/20 03:27 Blood Culture - Preliminary Blood No Growth after 96 hours Assessment and Plan (1) Breast cancer Status: Acute Code(s): C50.919 - MALIGNANT NEOPLASM OF UNSP SITE OF UNSPECIFIED FEMALE BREAST SNOMED Code(s): 562638185 (2) Abnormal CT of the abdomen Status: Acute Code(s): R93.5 - ABN FINDINGS ON DX IMAGING OF ABD REGIONS, INC RETROPERITON SNOMED Code(s): 82134965031569682 (3) Hyponatremia Status: Acute Code(s): E87.1 - HYPO-OSMOLALITY AND HYPONATREMIA SNOMED Code(s): 04745713 Plan: Will plan for outpatient EUS to further evaluate abnormality in pancreas In the interim continue current treatment regimen for Pneumonia per Primary other specialties Physician attest: I have completed the full history and physical and agree with above dictation, dictated as a scribe.
[2020-07-23 20:48] LABS: Glucose,Whole Blood 98 mg/dL (75-99)
[2020-07-23] MEDS: SYMBICORT 160-4.5 MCG INHALER INHALATION SCH (20:54)
[2020-07-23] MEDS ORDERED: traMADol 50 MG TAB PO PRN (22:25)
--- NOTE | 2020-07-23 22:43 | CONS ---
CONSULTATION PULMONARY/CRITICAL CARE CONSULTATION: DATE OF SERVICE: July 23. REASON FOR CONSULTATION: We were consulted for shortness of breath. HISTORY OF PRESENT ILLNESS: 69-year-old female admitted way back on July 19. She apparently presented to the emergency department with complaints of abdominal pain, as well as nausea and vomiting. She states that she was admitted with a diagnosis of acute pancreatitis. She is a drinker. She drinks two 8 ounce rum and Cokes every day she says. Anyway, she apparently denied any shortness of breath when she was in the emergency room on July 19. More recently, beginning last night, especially when she got up to go to the bathroom, she admitted to being very short of breath. For that reason, the consult was initiated. Currently, she is feeling much better. She is not on any supplemental oxygen. She appears not to be in any distress. She is a heavy smoker. She smoked for at least 40 years at a pack a day. Her primary care physician is Dr. Sandeep Rivers. She does not see a lung doctor. She does see one of the cardiologists. HOME MEDICATIONS: She is on a Ventolin inhaler, aspirin, vitamin D3, Celexa, Femara, Claritin, atenolol, Symbicort, doxycycline, and prednisone. ALLERGIES: ADHESIVE TAPE. MEDICAL HISTORY: Probable chronic obstructive pulmonary disease from smoking, hypertension, hyperlipidemia, and breast cancer. SURGICAL HISTORY: Includes breast surgery, cholecystectomy, and knee replacement. SOCIAL HISTORY: Positive for ongoing tobacco use. She has been smoking for more than 40 years. She does drink every day. She states she drinks at least 2 rum and Cokes every day. She denies any illicit drug use. FAMILY HISTORY: Noncontributory. REVIEW OF SYSTEMS: CONSTITUTIONAL negative. NEUROLOGIC negative. HEENT negative. CARDIOVASCULAR negative. PULMONARY: Shortness of breath, improved. GI: Abdominal pain, nausea, vomiting, diarrhea. negative. RHEUMATOLOGIC negative. IMMUNOLOGIC negative. ENDOCRINOLOGIC negative. DERMATOLOGIC negative. PHYSICAL EXAMINATION: VITAL SIGNS: Current vital signs are reviewed. Temperature is 97.7, heart rate 69, respiratory rate 18, blood pressure 130/75, mean 93, 2 L saturations 100%. GENERAL: Appears in no acute distress. HEENT: Examination is grossly unremarkable. Nasal O2 noted. Saturation 94% on room air, 100% on 2 L. She appears not to have any respiratory distress, conversational dyspnea, use of accessory muscles, or audible wheezing. NECK: Supple. Full range of motion. No adenopathy or thyromegaly. Neck veins are flat. CARDIOVASCULAR: Examination reveals regular rhythm and rate. Heart rate 69 beats per minute. S1, S2 normal. No S3, S4, or murmur. LUNGS: Reveal diminished breath sounds. Breath sounds are mostly noted to be diminished at the left base. There is also some diffuse inspiratory and expiratory wheezes and rhonchi. No crackles. ABDOMEN: Soft. Tender on palpation. EXTREMITIES are intact. No cyanosis, clubbing, or edema. SKIN: Without rash. NEUROLOGIC: Examination is nonfocal. LABS: Reviewed. White count 6.5, hemoglobin 11.3, hematocrit 36.9, platelet count 182,000. Sodium 135, potassium 3.4, chloride 107, CO2 23, anion gap is 5. BUN and creatinine were 16 and 1.21. Albumin 2.1. Microbiology is currently pending or negative. Chest x-ray shows left lower lobe infiltrate/effusion. An ultrasound of the left chest shows a moderate-sized left pleural effusion measuring about 8.7 cm. The right-sided pleural effusion smaller at 6.9 cm. The left pleural effusion 8.7 cm. Current medications reviewed. The patient is on Eliquis, atenolol, Symbicort, clonidine, Lasix, DuoNeb, Femara, lisinopril, Ativan, Narcan, Protonix, Zosyn and thiamine. Eliquis is placed on hold. ASSESSMENT: 1. Acute pancreatitis with abdominal pain, improved. 2. History of heavy tobacco and alcohol abuse. 3. Probable underlying chronic obstructive pulmonary disease. 4. Left lower lobe infiltrate/effusion, possible thoracentesis later this week. 5. Bilateral pleural effusions, left greater than right. 6. History of breast cancer involving the right breast. 7. Hyperlipidemia. 8. History of hypertension. PLAN: The patient's Eliquis placed on hold. The patient may benefit from thoracentesis. We will probably just do the left side. Additional recommendations and suggestions are forthcoming. Prognosis is guarded. We will continue to follow. MMODL / IJN: [id number] /
--- NOTE | 2020-07-23 22:44 | P.PN ---
Progress Note - Text Progress Note Date: 07/23/20 history of presenting complaint: This is a pleasant 69 years old female with multiple medical problems as below. She is a patient of Dr. Rivers. She presents because of one-day history of upper abdominal pain, she had this pain for 1 week as mild but More severe yesterday so she decided to come to the hospital, her pain is in the epigastric and left upper quadrant going to the back. Prep like 8/10 in severity when she came in, resolved significantly with Dilaudid. [place] like sharp associated with loose bowel movement and vomited 3 times. She smokes about 1 pack per day, she was counseled and she agrees to quit and she agrees to the nicotine patch She drinks about 2 cups of coffee feels each night. She denies illicit drugs Vitas looks stable however blood pressure on the high side 182/93 On admission Showing leukocytosis of 14.9 K, rest of CBC is unremarkable. BMP shows sodium 133, potassium 3.4, creatinine is within the reference range of 0.9 with GFR of 7. Her lactic acid came back to normal. Urine analysis is no suspicious of infection Elevated lipase at 3173 CT of the abdomen and pelvis: Pancreatitis, Masslike density inseparable to the pancreatic tail, 9 cm right kidney lesion, gastric and areas of small and large bowel thickening correlates clinically regarding inflammatory/infectious process. EKG showed atrial fibrillation with RVR at 117 In the emergency room patient was started on Dilaudid, IV fluid with normal saline at 130 mL/h, and Zosyn. Also started on heparin drip, Started on Ativan as needed same GI, surgery and cartilage team were consulted 07/20/2020 Patient is awake, she still complaining of from upper abdominal pain, mainly on the left side related to her pancreatitis. She remains on normal saline at 1:30 milliliters per hour with pain management. She is also on empiric antibiotics with elevated pro-calcitonin EGD will be done in the morning by surgery team to evaluate for gastric wall thickening MRI of the pancreas is ordered by GI team to assess for pancreatic mass. CA 19-9 NTG and is elevated at 36.8 but CEA is normal at 3.0 Patient will need biopsy of her right kidney mass per urology on the case Continue with CIWA protocol and vitamins. Cardiology team R following the case for new onset A. fib with RVR, currently on heparin drip and switched to oral when appropriate. Rate control 07/21/2020 Patient still complaining of from left flank or left lower chest pain, She is tolerating liquid diet well and asked to be advanced. EGD: Showing antral gastritis, status post biopsy Today her heparin drip was switched to Eliquis per cardiology recommendation MRI of the pancreas showing complex mass of the lesser sac is more likely pseudocyst with hemorrhage per radiologist which is unchanged from 07/19/20 making low suspicion of malignancy per radiologist also has left lower lobe infiltrate and subsequent of the tail of the pancreas Privilege team is recommending biopsy for her right kidney mass Today I discussed the case with Hazel from oncology and a consult was placed for them as she is known to their service for history of breast cancer 07/22/2020 Patient pain mainly in the lateral Lower chest rather than in the upper abdomen today, mostly related to her left lower lobe pneumonia . Also patient admits th at she has some difficulty breathing presents this admission however she confirmed to me that her condition is improving with Zosyn. No leukocytosis, no fever Patient informed to follow up on the biopsy for her antral gastritis, risk of malignancy explained and she understands Also MRI showing pseudocyst of the lesser sac and the tail of the pancreas and with a recommendation to repeat MRI in 3 months or EUS per GI service Also patient instructed that she will need biopsy for her right kidney mass and she verbalized understanding and acceptance fall recommendations. However clinically she is doing well, she is not in distress, she is fully awake and oriented, she is active, no significant dyspnea, no significant coughing, abdominal pain is resolved significantly and she is tolerating regular diet. Repeat chest x-ray in the morning Possible discharge in 24-48 hours July 23-laying in bed. Did tolerate some diet. Abdominal pain is better. Intermittent loose stools. Review of systems: Was done for constitutional, cardiovascular, GI, pulmonary. relevant finding as above- On examination: VITAL SIGNS: 97.8, 65, 16, 163 with 77, 95% room air GENERAL APPEARANCE: Laying in bed, awake. EYES: Pupils equal. Conjunctiva normal. NECK: JVD not raised. Mass not palpable. RESPIRATORY: Respiratory effort normal. Lungs decreased breath sounds. CARDIOVASCULAR: First and second sounds normal. No edema. ABDOMEN: Soft. Mild tenderness, Liver and spleen not palpable. No mass palpable. PSYCHIATRY: Alert and oriented x3. Mood and affect normal. INVESTIGATIONS, reviewed in the clinical context: white count 6.5 hemoglobin 11.3potassium 3.4 creatinine 1.21 COVID 19 P/Cr-not detected chest ultrasound-marked for pleural effusion left greater than right Abdominal MRI-possible pseudocyst with hemorrhage. IJ from computed tomography scan of July 19. Abdominal ascites. Pleural effusion and some left lower lobe infiltrate. assessment: -Acute pancreatitis with pseudocyst continue with pain medication, -Masslike density inseparable to the pancreatic tail, MRI showing pseudocyst of the tail of the pancreas, pseudocyst with hemorrhage and the lesser sac -gastricantral gastritis, status post biopsy -9 cm right kidney lesion, -seen by Dr. Crabtree. Repeat MRI in a few weeks -alcohol use disorder, continue with CIWA protocol with Ativan as needed and timing -chronicNicotine dependence, patient is counseled, nicotine patch is offered -Atrial fibrillation with RVR, present on admission. on Eliquis, atenolol and clonidine -History of breast Cancer, bone scan from 10/22/2019 showing no evidence of bone metastasis -Hypertension, -Hyperlipidemia -Anxiety, -Hypoalbuminemia, due to acute pancreatitis -Secondary ascites -Macrocytic anemia secondary to alcoholism Plan: patient diet has been changed to a low-fat diet. IV fluids discontinued. Increase activity.discussed with patient.
[2020-07-23] MEDS ORDERED: POTASSIUM CHLORIDE ER 20 MEQ TAB.ER PO STA (22:45)
[2020-07-24] MEDS: MAGNESIUM OXIDE 400 MG TAB PO SCH ×2 (00:11→09:45)
[2020-07-24] MEDS: PIPERACILLIN-TAZOBACTAM 3.375 GM in SODIUM CHLORIDE 0.9% 100 ML IVPB SCH ×2 (04:12→14:16)
[2020-07-24] MEDS: THIAMINE 100 MG TAB PO SCH (06:16)
[2020-07-24 08:48] VITALS: RESP 16
[2020-07-24] MEDS: IPRATROPIUM-ALBUTEROL 3 ML NEB INHALATION SCH ×2 (08:54→11:42)
[2020-07-24] MEDS: SYMBICORT 160-4.5 MCG INHALER INHALATION SCH (08:54)
[2020-07-24 09:05] LABS: Calcium 8.6 mg/dL (8.4-10.2)
[2020-07-24] MEDS: atenoloL 50 MG TAB PO SCH (09:44)
[2020-07-24] MEDS: lisinopriL 5 MG TAB PO SCH (09:44)
[2020-07-24] MEDS: cloNIDine HCL 0.2 MG TAB PO SCH (09:44)
[2020-07-24] MEDS: PANTOPRAZOLE 40 MG TABLET PO SCH (09:45)
[2020-07-24] MEDS: LETROZOLE 2.5 MG TAB PO SCH (09:48)
--- NOTE | 2020-07-24 11:46 | P.PN ---
Subjective Progress Note Date: 07/24/20 Principal diagnosis: Abdominal pain, pancreatitis, pancreatic mass This is a 69-year-old female patient who came in with epigastric pain. She is found to have pancreatitis a computed tomography scan with possible pancreatic mass. She does have a history of alcohol abuse approximately 3 drinks daily. She denies ever having pancreatitis in the past. She underwent an MRI/MRCP of the pancreas which showed there was a mix signal complex mass in the lesser sac and could be a pseudocyst with hemorrhage appears to be unchanged compared to the recent computed tomography scan, there is low suspicion of a tumor however tumor is not entirely excluded. There is abdominal ascites there is a cystic mass posterior tail of the pancreas that is likely pseudocyst and unchanged compared to recent computed tomography scan. She is also status post upper endoscopy which revealed gastritis. She had a normal CEA with a mildly elevated CA-19-9. She states she is being discharged home today. She denies any abdominal pain, nausea, or vomiting. She continues to tolerate her regular diet. Objective - Vital Signs Vital signs: Vital Signs Temp 99.3 F 07/24/20 08:00 Pulse 68 07/24/20 11:43 Resp 16 07/24/20 08:00 BP 174/81 07/24/20 08:00 Pulse Ox 96 07/24/20 08:00 Intake & Output 07/23/20 07/24/20 07/24/20 18:59 06:59 18:59 Intake Total 880 120 Output Total 1650 Balance 880 -1650 120 Weight 61.7 kg Intake: Intake, IV Titration 400 Amount Magnesium Sulfate-D5w Pmx 200 1 gm In Dextrose/Water 1 100ml.bag @ 100 mls/hr IVPB Q1H [facility] Rx#: [id number] Piperacillin-Tazobactam 3 200 .375 gm In Sodium Chloride 0.9% 100 ml @ 25 mls/hr IVPB Q8H [facility] Rx#: [id number] Oral 480 120 Output: Urine 1650 Other: Voiding Method Toilet # Voids 1 1 # Bowel Movements 0 - Exam General appearance: The patient is alert, oriented, in no acute distress. HET: Head is normocephalic and atraumatic. Conjunctiva pink. Sclera anicteric. Neck: Supple without lymphadenopathy. Abdomen: Soft, nontender, nondistended with bowel sounds. No guarding or rigidity. Extremities: Normal skin color and turgor. No pedal edema Neurological: No focal deficits. Alert and oriented 3. - Labs CBC & Chem 7: 07/23/20 08:37 07/24/20 08:16 Labs: Abnormal Lab Results - Last 24 Hours (Table) 07/23/20 07/24/20 Range/Units 12:04 08:16 Sodium 136 L (137-145) mmol/L Creatinine 1.32 H (0.52-1.04) mg/dL POC Glucose (mg/dL) 103 H (75-99) mg/dL Microbiology - Last 24 Hours (Table) 07/19/20 03:27 Blood Culture - Preliminary Blood No Growth after 120 hours Assessment and Plan (1) Pancreatitis Narrative/Plan: 69-year-old female with multiple medical comorbidities presented to the hospital with complaints of abdominal pain and was found to have elevation in lipase at [address] showing stranding consistent with pancreatitis. Currently pain is somewhat improved and she is tolerating diet. She does report daily alcohol use for the past 20 years approximately 3 cocktails daily. She did have some nausea and vomiting with her symptoms. Currently she is being admitted and treated for acute pancreatitis. CT also showed a possible fluid collection, hematoma or mass in the area of the pancreatic tail, gastric fundus and left adrenal with MRI ordered and surgical service point EGD for evaluation of stomach. EGD performed by the surgical service in evaluation significant only for gastritis. MRI was performed and significant for pancreatic cysts likely pseudocysts with no distinct mass noted. Current Visit: Yes Status: Acute Code(s): K85.90 - ACUTE PANCREATITIS WITHOUT NECROSIS OR INFECTION, UNSP SNOMED Code(s): 56546842 (2) Abnormal CT of the abdomen Narrative/Plan: Computed tomography scan with findings of a masslike area in the pancreatic tail, gastric fundus and left adrenal with differential including hematoma, fluid collection or solid mass. EGD negative for any gastric mass with only findings of gastritis. MRI performed in evaluation showed possible fluid collection versus hematoma, pancreatic cyst for also noted likely benign in nature. Current Visit: Yes Status: Acute Code(s): R93.5 - ABN FINDINGS ON DX IMAGING OF ABD REGIONS, INC RETROPERITON SNOMED Code(s): 69079071441771970 Plan: Supportive care Okay for diet as tolerated Continue pain control as needed Continue IV fluid hydration Alcohol abstinence Continue to monitor and treat for signs and symptoms of alcohol withdrawal Tumor markers showing only mild elevation of CA 199 and normal CEA MRI/MRCP suggestive of pancreatic pseudocyst, can have patient follow up with advanced endoscopy for EUS in the future or repeat MRI in 3 months Surgical service following, and is post upper endoscopy The patient may be discharged home from a gastroenterology standpoint with follow-up in 2-[address] mC Wheeler I agree with the dictator's note, documented as a scribe by Edwin Monte.
--- NOTE | 2020-07-24 12:43 | P.PN ---
Subjective Progress Note Date: 07/24/20 CHIEF COMPLAINT: Abdominal pain HISTORY OF PRESENT ILLNESS: Patient is being followed for her pancreatitis. Patient reports she is feeling better. She feels ready for discharge. Patient's abdominal pain has shown improvement. She is tolerating regular diet. Patient reports some pain on her right side. But the pain has improved greatly since admission. She denies any nausea or vomiting. Patient is being followed by pulmonary service regarding a possible thoracentesis for pleural effusion. She is afebrile. WBC is 8.4. PHYSICAL EXAM: VITAL SIGNS: Reviewed. GENERAL: Well-developed in no acute distress. HEENT: No sclera icterus. Extraocular movements grossly intact. Moist buccal mucosa. Head is atraumatic, normocephalic. ABDOMEN: Soft. Nondistended. Nontender. NEUROLOGIC: Alert and oriented. Cranial nerves II through XII grossly intact. ASSESSMENT: 1. Acute pancreatitis with pseudocyst 2. Status post EGD during this admission showing gastritis 3. Daily alcohol use PLAN: -Continue regular diet -Continue supportive care -Patient follow-up with Dr. Massey in 1 week in the office after discharge Physician [employer] note has been reviewed by physician. Signing provider agrees with the documented findings, assessment, and plan of care. Objective - Vital Signs Vital signs: Vital Signs Temp 99.3 F 07/24/20 08:00 Pulse 76 07/24/20 11:52 Resp 16 07/24/20 08:00 BP 174/81 07/24/20 08:00 Pulse Ox 96 07/24/20 08:00 Intake & Output 07/23/20 07/24/20 07/24/20 18:59 06:59 18:59 Intake Total 880 120 Output Total 1650 Balance 880 -1650 120 Weight 61.7 kg Intake: Intake, IV Titration 400 Amount Magnesium Sulfate-D5w Pmx 200 1 gm In Dextrose/Water 1 100ml.bag @ 100 mls/hr IVPB Q1H [facility] Rx#: [id number] Piperacillin-Tazobactam 3 200 .375 gm In Sodium Chloride 0.9% 100 ml @ 25 mls/hr IVPB Q8H [facility] Rx#: [id number] Oral 480 120 Output: Urine 1650 Other: Voiding Method Toilet # Voids 1 1 # Bowel Movements 0 - Labs CBC & Chem 7: 07/23/20 08:37 07/24/20 08:16 Labs: Abnormal Lab Results - Last 24 Hours (Table) 07/24/20 Range/Units 08:16 Sodium 136 L (137-145) mmol/L Creatinine 1.32 H (0.52-1.04) mg/dL Microbiology - Last 24 Hours (Table) 07/19/20 03:27 Blood Culture - Preliminary Blood No Growth after 120 hours
--- NOTE | 2020-07-24 13:12 | P.PN ---
Subjective This is a pleasant 69-year-old female past medical history significant for breast cancer and hypertension. She is currently being treated for acute pancreatitis. We have been following secondary to new onset atrial fibrillation. She continues to maintain sinus mechanism. She was seen yesterday in consultation by the pulmonary care team. Eliquis currently on hold for possible thoracentesis. She continues to feel short of breath. She denies symptoms of chest pain, dizziness or palpitations. Blood pressure 174/81 heart rate 76 afebrile maintaining oxygen saturation on room air. Laboratory data reviewed, sodium 136, potassium 4.0 and creatinine 1.32. Currently maintained on atenolol 100 mg daily, lisinopril 5 mg daily. GENERAL: Well-appearing, well-nourished and in no acute distress. NECK: Supple without JVD or thyromegaly. LUNGS: Respiration equal and unlabored. Expiratory wheezes noted throughout. No rales or rhonchi. HEART: Regular rate and rhythm without murmurs, rubs or gallops. S1 and S2 heard. EXTREMITIES: Normal range of motion, no edema. No clubbing or cyanosis. Peripheral pulses intact. ASSESSMENT Paroxysmal atrial fibrillation, maintaining sinus mechanism. Hypertension Pancreatitis Chronic nicotine dependence Daily alcohol intake PLAN Resume Eliquis after thoracentesis. Following the office with Dr. Salcido upon discharge. We will follow along as needed, please call with further questions or concerns. Nurse Practitioner note has been reviewed, I agree with a documented findings and plan of care. Patient was seen and examined. Objective - Vital Signs Vital signs: Vital Signs Temp 99.3 F 07/24/20 08:00 Pulse 76 07/24/20 11:52 Resp 16 07/24/20 08:00 BP 174/81 07/24/20 08:00 Pulse Ox 96 07/24/20 08:00 Intake & Output 07/23/20 07/24/20 07/24/20 18:59 06:59 18:59 Intake Total 880 120 Output Total 1650 Balance 880 -1650 120 Weight 61.7 kg Intake: Intake, IV Titration 400 Amount Magnesium Sulfate-D5w Pmx 200 1 gm In Dextrose/Water 1 100ml.bag @ 100 mls/hr IVPB Q1H [facility] Rx#: [id number] Piperacillin-Tazobactam 3 200 .375 gm In Sodium Chloride 0.9% 100 ml @ 25 mls/hr IVPB Q8H [facility] Rx#: [id number] Oral 480 120 Output: Urine 1650 Other: Voiding Method Toilet # Voids 1 1 # Bowel Movements 0 - Labs CBC & Chem 7: 07/23/20 08:37 07/24/20 08:16 Labs: Abnormal Lab Results - Last 24 Hours (Table) 07/24/20 Range/Units 08:16 Sodium 136 L (137-145) mmol/L Creatinine 1.32 H (0.52-1.04) mg/dL Microbiology - Last 24 Hours (Table) 07/19/20 03:27 Blood Culture - Preliminary Blood No Growth after 120 hours
[2020-07-24 14:14] VITALS: BP 140/80; PULSE 72; TEMP 98.2
--- NOTE | 2020-07-24 17:00 | P.PN ---
Subjective Progress Note Date: 07/24/20 Principal diagnosis: New Pancreatic mass/Gastritis Objective - Vital Signs Vital signs: Vital Signs Temp 98.2 F 07/24/20 12:00 Pulse 72 07/24/20 12:00 Resp 16 07/24/20 12:00 BP 140/80 07/24/20 12:00 Pulse Ox 94 L 07/24/20 12:00 Intake & Output 07/23/20 07/24/20 07/24/20 18:59 06:59 18:59 Intake Total 880 280 Output Total 1650 Balance 880 -1650 280 Weight 61.7 kg Intake: Intake, IV Titration 400 160 Amount IV Fluid Continuation 1, 60 000 ml @ 0 mls/hr IV .STK -[facility] Rx#:[id number] Magnesium Sulfate-D5w Pmx 200 1 gm In Dextrose/Water 1 100ml.bag @ 100 mls/hr IVPB Q1H [facility] Rx#: [id number] Piperacillin-Tazobactam 3 200 100 .375 gm In Sodium Chloride 0.9% 100 ml @ 25 mls/hr IVPB Q8H [facility] Rx#: [id number] Oral 480 120 Output: Urine 1650 Other: Voiding Method Toilet Toilet # Voids 1 1 # Bowel Movements 0 - Exam - Constitutional General appearance: Present: cooperative, no acute distress - EENT Eyes: Present: EOMI, PERRLA ENT: Present: NA/AT, normal oropharynx - Respiratory Respiratory: left: rhonchi, bilateral: diminished - Cardiovascular Rhythm: regular - Gastrointestinal General gastrointestinal: Present: distended, soft, tenderness - Integumentary Integumentary: Present: pale - Neurologic Neurologic: Present: CNII-XII intact - Musculoskeletal Musculoskeletal: Present: generalized weakness, strength equal bilaterally - Psychiatric Psychiatric: Present: A&O x's 3, appropriate affect - Labs CBC & Chem 7: 07/23/20 08:37 07/24/20 08:16 Labs: Abnormal Lab Results - Last 24 Hours (Table) 07/24/20 Range/Units 08:16 Sodium 136 L (137-145) mmol/L Creatinine 1.32 H (0.52-1.04) mg/dL Microbiology - Last 24 Hours (Table) 07/19/20 03:27 Blood Culture - Preliminary Blood No Growth after 120 hours Assessment and Plan (1) Breast cancer Status: Acute Code(s): C50.919 - MALIGNANT NEOPLASM OF UNSP SITE OF UNSPECIFIED FEMALE BREAST SNOMED Code(s): 718004218 (2) Abnormal CT of the abdomen Status: Acute Code(s): R93.5 - ABN FINDINGS ON DX IMAGING OF ABD REGIONS, INC RETROPERITON SNOMED Code(s): 27149296443137885 (3) Hyponatremia Status: Acute Code(s): E87.1 - HYPO-OSMOLALITY AND HYPONATREMIA SNOMED Code(s): 02353134 Plan: Will plan for outpatient EUS to further evaluate abnormality in pancreas In the interim continue current treatment regimen for Pneumonia per Primary other specialties Patient is planning for discharge today, I have spoken with Bianka and answered all questions as best as possible COntinued alcohol cessation Physician attest: I have completed the full history and physical and agree with above dictation, dictated as a scribe.
--- NOTE | 2020-07-24 18:28 | PN ---
PROGRESS NOTE PULMONARY/CRITICAL CARE PROGRESS NOTE: DATE OF SERVICE: 07/24/2020 This is a 69-year-old patient that we saw on July 23 in consultation. She was consulted for shortness of breath. We thought the patient's shortness of breath related to two issues including underlying COPD from heavy tobacco use as well as bilateral pleural effusions, left greater than right. The plan was to stop her Eliquis and do a thoracentesis on her. Apparently, the patient is being considered for discharge home. She states that she is feeling much better. Much less short of breath. She denies any chest pain or chest discomfort. She is not coughing. There is no fever or chills. She denies any nausea, vomiting, diarrhea, abdominal pain or any genitourinary complaints. She is a heavy smoker. Her primary care physician is Dr. Sandeep Rivers. PHYSICAL EXAMINATION: VITAL SIGNS: Current vital signs are reviewed and include a temperature which is 96.8, heart rate 72, respiratory rate 16, blood pressure 127/77 and a saturation of 94% on room air. She appears in no acute distress. HEENT: Examination is unremarkable. NECK: Supple. Full range of motion. No adenopathy. Neck veins are flat. CARDIOVASCULAR: Examination reveals regular rhythm rand ate. S1, S2 normal. There is no S3, S4, or murmur. Heart rate 72 beats per minute. LUNGS: Reveal diminished breath sounds primarily at the bases. A few scattered rhonchi. No wheezes. No crackles. ABDOMEN: Soft. Bowel sounds are heard. EXTREMITIES are intact. No cyanosis, clubbing, or edema. SKIN: Without rash. NEUROLOGIC: Examination is nonfocal. LABS: Reviewed. Medications are reviewed. ASSESSMENT: 1. Acute pancreatitis with abdominal pain, much improved. 2. History of heavy tobacco use and alcohol abuse. 3. Probable underlying chronic obstructive pulmonary disease. 4. Left lower lobe infiltrate/effusion with anticipated thoracentesis on Thursday. 5. Bilateral pleural effusions, left greater than right. 6. History of breast cancer involving the right breast. 7. Hyperlipidemia. 8. History of essential hypertension. PLAN: We put the patient's Eliquis on hold. The plan was to do thoracentesis on Thursday. We are going to do left-sided thoracentesis initially and possibly consider a right- sided thoracentesis. Apparently, the patient is much improved and will likely be discharged home from the hospital. No additional recommendations are made. We did arrange for followup with me. The patient can see me in the clinic at a later date. If the patient's effusions are significant we can consider thoracentesis. MMURMILAL / TEAN: [id number] /
[2020-07-24] MEDS ORDERED: APIXABAN 5 MG TAB PO SCH (21:00)
--- NOTE | 2020-07-24 23:23 | P.DS ---
Providers Date of admission: 07/19/20 04:52 Expected date of discharge: 07/24/20 Attending physician: Adrien Ball Consults: 07/19/20 03:20 Consult Physician Stat Consulting Provider: Chinmay Hobbs Consult Reason/Comments: panceratitis, atrial fibrillation new onset, pancreatic mass Do you want consulting provider notified?: Yes, Notify in am 07/19/20 03:22 Consult Physician Stat Consulting Provider: Homero Yeh Consult Reason/Comments: atrial fibrillation Do you want consulting provider notified?: Yes, Notify in am 07/19/20 12:20 Consult Physician Routine Consulting Provider: Collisn Brito Consult Reason/Comments: 9 cm right kidney lesion Do you want consulting provider notified?: Yes 07/21/20 13:33 Consult Physician Routine Consulting Provider: Tomy Cruz Consult Reason/Comments: h/o breast cancer, multiple masses Do you want consulting provider notified?: Yes 07/23/20 09:34 Consult Physician Routine Consulting Provider: Tolu Massey Consult Reason/Comments: Pancreatitis Do you want consulting provider notified?: Already Contacted 07/23/20 10:18 Consult Physician Routine Consulting Provider: Nura Sands Consult Reason/Comments: sudden onset sob Do you want consulting provider notified?: Yes Primary care physician: Sandeep Rivers Hospital Course: history of presenting complaint: This is a pleasant 69 years old female with multiple medical problems as below. She is a patient of Dr. Rivers. She presents because of one-day history of upper abdominal pain, she had this pain for 1 week as mild but More severe yesterday so she decided to come to the hospital, her pain is in the epigastric and left upper quadrant going to the back. Prep like 8/10 in severity when she came in, resolved significantly with Dilaudid. [place] like sharp associated with loose bowel movement and vomited 3 times. She smokes about 1 pack per day, she was counseled and she agrees to quit and she agrees to the nicotine patch She drinks about 2 cups of coffee feels each night. She denies illicit drugs Vitas looks stable however blood pressure on the high side 182/93 On admission Showing leukocytosis of 14.9 K, rest of CBC is unremarkable. BMP shows sodium 133, potassium 3.4, creatinine is within the reference range of 0.9 with GFR of 7. Her lactic acid came back to normal. Urine analysis is no suspicious of infection Elevated lipase at 3173 CT of the abdomen and pelvis: Pancreatitis, Masslike density inseparable to the pancreatic tail, 9 cm right kidney lesion, gastric and areas of small and large bowel thickening correlates clinically regarding inflammatory/infectious process. EKG showed atrial fibrillation with RVR at 117 In the emergency room patient was started on Dilaudid, IV fluid with normal saline at 130 mL/h, and Zosyn. Also started on heparin drip, Started on Ativan as needed same GI, surgery and cartilage team were consulted 07/20/2020 Patient is awake, she still complaining of from upper abdominal pain, mainly on the left side related to her pancreatitis. She remains on normal saline at 1:30 milliliters per hour with pain management. She is also on empiric antibiotics with elevated pro-calcitonin EGD will be done in the morning by surgery team to evaluate for gastric wall thickening MRI of the pancreas is ordered by GI team to assess for pancreatic mass. CA 19-9 NTG and is elevated at 36.8 but CEA is normal at 3.0 Patient will need biopsy of her right kidney mass per urology on the case Continue with CIWA protocol and vitamins. Cardiology team R following the case for new onset A. fib with RVR, currently on heparin drip and switched to oral when appropriate. Rate control 07/21/2020 Patient still complaining of from left flank or left lower chest pain, She is tolerating liquid diet well and asked to be advanced. EGD: Showing antral gastritis, status post biopsy Today her heparin drip was switched to Eliquis per cardiology recommendation MRI of the pancreas showing complex mass of the lesser sac is more likely pseudocyst with hemorrhage per radiologist which is unchanged from 07/19/20 making low suspicion of malignancy per radiologist also has left lower lobe infiltrate and subsequent of the tail of the pancreas Privilege team is recommending biopsy for her right kidney mass Today I discussed the case with Hazel from oncology and a consult was placed for them as she is known to their service for history of breast cancer 07/22/2020 Patient pain mainly in the lateral Lower chest rather than in the upper abdomen today, mostly related to her left lower lobe pneumonia . Also patient admits that she has some difficulty breathing presents this admission however she confirmed to me that her condition is improving with Zosyn. No leukocytosis, no fever Patient informed to follow up on the biopsy for her antral gastritis, risk of malignancy explained and she understands Also MRI showing pseudocyst of the lesser sac and the tail of the pancreas and with a recommendation to repeat MRI in 3 months or EUS per GI service Also patient instructed that she will need biopsy for her right kidney mass and she verbalized understanding and acceptance fall recommendations. However clinically she is doing well, she is not in distress, she is fully awake and oriented, she is active, no significant dyspnea, no significant coughing, abdominal pain is resolved significantly and she is tolerating regular diet. Today-feeling much better. Oral intake better. Was put on a low-fat diet. Diarrhea much improved. Abdominal pain is better. Discussed again about alcohol and smoking. Consultation: Dr. Crabtree from neurology Dr. Massey from general surgery Dr. Walker from GI Dr. Franco from oncology On examination: VITAL SIGNS: 98.2, 72, 16, 140/80, 94% on room air GENERAL APPEARANCE: Sitting on bed, comfortable, generalized bruising EYES: Pupils equal. Conjunctiva normal. NECK: JVD not raised. Mass not palpable. RESPIRATORY: Respiratory effort normal. Lungs decreased breath sounds. CARDIOVASCULAR: First and second sounds normal. No edema. ABDOMEN: Soft. Mild tenderness, Liver and spleen not palpable. No mass palpable. PSYCHIATRY: Alert and oriented x3. Mood and affect normal. INVESTIGATIONS, reviewed in the clinical context: white count 6.5 hemoglobin 11.3 potassium 4 creatinine 1.3 to COVID 19 P/Cr-not detected chest ultrasound-marked for pleural effusion left greater than right Abdominal MRI-possible pseudocyst with hemorrhage. IJ from computed tomography scan of July 19. Abdominal ascites. Pleural effusion and some left lower lobe infiltrate. assessment: -Acute pancreatitis with pseudocyst -Masslike density inseparable to the pancreatic tail, MRI showing pseudocyst of the tail of the pancreas, pseudocyst with hemorrhage and the lesser sac -gastric antral gastritis, status post biopsy -9 cm right kidney lesion, -seen by Dr. Crabtree. Repeat MRI in a few weeks -alcohol use disorder, -chronic Nicotine dependence, -Atrial fibrillation with RVR, present on admission. on Eliquis, atenolol and clonidine -History of breast Cancer, bone scan from 10/22/2019 showing no evidence of bone metastasis -Hypertension, -Hyperlipidemia -Anxiety, -Hypoalbuminemia, due to acute pancreatitis -Secondary ascites -Macrocytic anemia secondary to alcoholism Disposition: Home Labs: CBC BMP-in 5 days Patient Condition at Discharge: Stable Plan - Discharge Summary Discharge Rx Participant: Yes New Discharge Prescriptions: New Apixaban [Eliquis] 5 mg PO BID #60 tab Ipratropium-Albuterol Nebulize [Duoneb 0.5 mg-3 mg/3 ml Soln] 3 ml INHALATION TID #90 ml Omeprazole [PriLOSEC] 20 mg PO AC-BID #60 cap Budesonide-Formot 160-4.5 Mcg [Symbicort 160-4.5 Mcg Inhaler] 2 puff INHALATION RT-BID #1 puff Thiamine [Vitamin B-1] 100 mg PO BID-W/MEALS #60 tab lisinopriL [Zestril] 5 mg PO DAILY #30 tab Continue Letrozole [Femara] 2.5 mg PO DAILY Citalopram Hydrobromide [CeleXA] 20 mg PO DAILY HYDROcodone/APAP 5-325MG [[place] 5-325] 1 tab PO Q6H PRN PRN Reason: Pain Changed cloNIDine HCL [Catapres] 0.2 mg PO TID #90 tab Discontinued Loratadine [Claritin] 10 mg PO DAILY atenoloL [Atenolol] 100 mg PO DAILY Naproxen 500 mg PO BID No Action Aspirin EC [Ecotrin Low Dose] 81 mg PO DAILY Discharge Medication List Aspirin EC [Ecotrin Low Dose] 81 mg PO DAILY 08/30/18 [History] Citalopram Hydrobromide [CeleXA] 20 mg PO DAILY 08/30/18 [History] Letrozole [Femara] 2.5 mg PO DAILY 08/30/18 [History] Apixaban [Eliquis] 5 mg PO BID #60 tab 07/20/20 [Rx] HYDROcodone/APAP 5-325MG [[place] 5-325] 1 tab PO Q6H PRN 07/20/20 [History] Budesonide-Formot 160-4.5 Mcg [Symbicort 160-4.5 Mcg Inhaler] 2 puff INHALATION RT-BID #1 puff 07/24/20 [Rx] Ipratropium-Albuterol Nebulize [Duoneb 0.5 mg-3 mg/3 ml Soln] 3 ml INHALATION TID #90 ml 07/24/20 [Rx] Omeprazole [PriLOSEC] 20 mg PO AC-BID #60 cap 07/24/20 [Rx] Thiamine [Vitamin B-1] 100 mg PO BID-W/MEALS #60 tab 07/24/20 [Rx] cloNIDine HCL [Catapres] 0.2 mg PO TID #90 tab 07/24/20 [Rx] lisinopriL [Zestril] 5 mg PO DAILY #30 tab 07/24/20 [Rx] Follow up Appointment(s)/Referral(s): Sandeep Rivers MD [Primary Care Provider] - 1-2 days Jacquelin Slade NPC [Nurse Practitioner] - 2 Weeks Letha Salcido MD [STAFF PHYSICIAN] - 2 Weeks Collins Brito MD [STAFF PHYSICIAN] - 2 Weeks Chinmay Hobbs MD [STAFF PHYSICIAN] - 2 Weeks Tolu Massey MD [STAFF PHYSICIAN] - 1 Week Patient Instructions/Handouts: Pancreatitis (DC) Activity/Diet/Wound Care/Special Instructions: low fat diet cbc/bmp - 7 days Discharge Disposition: HOME SELF-CARE
== END 2020-07-24 14:05 | disposition home or self-care (01) | DRG 438 ==
LOC: EC 00:18 → 3SCARD 04:52
PROVIDERS: ADMIT Hospitalist; ATTEND Hospitalist
PROC: 0DB78ZX Excision of Stomach, Pylorus, Via Natural or Artificial Opening Endoscopic, Diagnostic (ICD-10-PCS; principal; 2020-07-21 12:00)
DX: K85.20 Alcohol induced acute pancreatitis without necrosis or infection (principal); J18.9 Pneumonia, unspecified organism; K86.3 Pseudocyst of pancreas; E87.1 Hypo-osmolality and hyponatremia; J90 Pleural effusion, not elsewhere classified; R18.8 Other ascites; J44.0 Chronic obstructive pulmonary disease with (acute) lower respiratory infection; Z20.828 Contact with and (suspected) exposure to other viral communicable diseases; Z96.651 Presence of right artificial knee joint; E78.5 Hyperlipidemia, unspecified; F41.9 Anxiety disorder, unspecified; E87.6 Hypokalemia; E83.42 Hypomagnesemia; D53.9 Nutritional anemia, unspecified; F17.210 Nicotine dependence, cigarettes, uncomplicated; I10 Essential (primary) hypertension; I48.0 Paroxysmal atrial fibrillation; F10.20 Alcohol dependence, uncomplicated; E88.09 Other disorders of plasma-protein metabolism, not elsewhere classified; K29.70 Gastritis, unspecified, without bleeding; D63.8 Anemia in other chronic diseases classified elsewhere; Z79.51 Long term (current) use of inhaled steroids; Z79.811 Long term (current) use of aromatase inhibitors; Z79.82 Long term (current) use of aspirin; Z79.899 Other long term (current) drug therapy; Z91.09 Other allergy status, other than to drugs and biological substances; Z85.3 Personal history of malignant neoplasm of breast; Z82.49 Family history of ischemic heart disease and other diseases of the circulatory system; Z90.49 Acquired absence of other specified parts of digestive tract; Z17.1 Estrogen receptor negative status [ER-]; Z90.11 Acquired absence of right breast and nipple; Z98.890 Other specified postprocedural states
CPT/HCPCS: 36415; 43239; 71045; 74177; 74183; 76604; 80048; 80053; 81001; 82150; 82378; 83605; 83690; 83735; 84145; 84443; 84484; 85025; 85610; 85730; 86300; 86301; 87040; 87635; 88305; 93005; 93306; 94640; 96361; 96365; 96366; 96368; 96372; 96375; 96376; 99285

== ENCOUNTER → 2021-04-18 | Outpatient (CLI) | payer MEDICARE ==
--- NOTE | 2021-04-19 08:31 | XR ---
EXAMINATION TYPE: XR chest 2V DATE OF EXAM: 04/18/2021 COMPARISON: 07/23/2020 HISTORY: 70-year-old female right-sided epigastric pain with shortness of breath. S14.2XXA,B02.9,C50 .919,G60.0 TECHNIQUE: Frontal and lateral views FINDINGS: Heart upper limits of normal in size. Aorta and pulmonary vasculature within normal limits. Hyperinfl ation. Small right pleural effusion. No appreciable pneumothorax. Nondisplaced fractures of the right lateral eighth, ninth, and 10th ribs noted. IMPRESSION: 1. Borderline heart size and COPD. 2. Nondisplaced fractures of the right lateral eighth, ninth, and 10th ribs. 3. Underlying small right pleural effusion/hemothorax.
== END | disposition home or self-care (01) ==
LOC: RADXRMAIN 17:14
PROVIDERS: ATTEND Nurse Practitioner Adult Health
DX: S22.41XA Multiple fractures of ribs, right side, initial encounter for closed fracture (principal); J44.9 Chronic obstructive pulmonary disease, unspecified; J90 Pleural effusion, not elsewhere classified
CPT/HCPCS: 71046

== ENCOUNTER → 2021-05-24 | Outpatient (CLI) | payer MEDICARE ==
--- NOTE | 2021-05-24 16:18 | NM ---
EXAMINATION TYPE: NM bone scan whole body DATE OF EXAM: 05/24/2021 COMPARISON: Prior bone scan 2019 HISTORY: Breast cancer. Delayed whole-body scanning was performed following the injection of 21 mCi Tc 99m MDP. Images acqui red 3.5 hours post injection. Whole body images obtained anterior posterior projection along with add itional spot views of the abdomen are acquired. FINDINGS: There is no radiotracer uptake involving the posterior lower right ribs in a vertical orientation. Ad ditional foci of increased radiotracer uptake involving the lateral aspect of the right lower ribs. A dditional foci of increased radiotracer uptake lower right ribs near thoracic spine articulation in a vertical orientation. Findings are consistent with posttraumatic fracture, possible flail chest. Fin dings correlate with chest x-ray April 18, 2021 consistent with subacute healing fractures. No additional areas of abnormal radiotracer uptake metastatic disease to the bone. Lucency from prost hesis in the right knee is identified. Some scattered degenerative changes redemonstrated. IMPRESSION: As above.
== END | disposition home or self-care (01) ==
LOC: RADNMMAIN 11:39
PROVIDERS: ATTEND Internal Medicine Hematology & Oncology
DX: C50.919 Malignant neoplasm of unspecified site of unspecified female breast (principal)
CPT/HCPCS: 78306; A9503